=== PATIENT | female | born 1940 | race Caucasian/White ===

== ENCOUNTER → 2016-07-08 | Outpatient (CLI) | payer OTHER, BC ==
[~2016-07-08] MED LIST: ASPI81TA28 PO; CALC500C3 PO; CHOL1000 PO; CLC100 PO; CLR10 PO; COEN100C7 PO; ESTR0.3T PO; LANS15CA15 PO; MAGNTAB17 PO; METO25TA56 PO; MONT1TAB3 PO; MULT-506 PO; OMEG10007 PO; POTA99TA PO; RANI150T3 PO; SIMV20TA2 PO; SIMV40TA2 PO; SLWMEC PO; SYMIN160 INH; TRAM-10 PO; [UNRECOGNIZED DRUG - OTHER] PO
--- NOTE | 2016-07-09 14:06 | MAMMOGRAPHY REPORT ---
BILATERAL DIGITAL SCREENING MAMMOGRAM WITH CAD: 07/08/2016 CLINICAL HISTORY: Routine screening. Patient has no complaints. TECHNIQUE: Bilateral CC and MLO views were obtained. Current study was also evaluated with a Comput er Aided Detection (CAD) system. COMPARISON: Comparison is made to exams dated: 07/03/2015 mammogram, 06/28/2014 mammogram, 04/12/2013 mammogram, 03/16/2012 mammogram, 03/11/2011 mammogram, and 03/05/2010 mammogram - [facility]. BREAST COMPOSITION: The tissue of both breasts is heterogeneously dense, which may obscure small ma sses. FINDINGS: There are multiple bilateral circumscribed masses scattered in the breasts, which appears stable compared to prior mammograms. There are mild vascular calcification and benign rim calcifica tions. No new suspicious mass, architectural distortion or cluster of microcalcifications is seen. IMPRESSION: ACR BI-RADS CATEGORY 1: NEGATIVE There is no mammographic evidence of malignancy. A 1 year screening mammogram is recommended. The p atient will receive written notification of the results. Approximately 10% of breast cancers are not detected with mammography. A negative mammographic repor t should not delay biopsy if a clinically suggestive mass is present. Mariam Avendaño M.D. ay/:07/08/2016 15:30:01 Insulation Manager: Zee SULLIVAN(Aayush)(M), [facility] letter sent: Normal 1/2 BI-RADS Code: ACR BI-RADS Category 1: Negative
== END | disposition home or self-care (01) ==
LOC: C.MAMM 10:27
PROVIDERS: ATTEND Internal Medicine
DX: Z12.31 Encounter for screening mammogram for malignant neoplasm of breast (principal)

== ENCOUNTER → 2016-08-04 | Outpatient (CLI) | payer OTHER, BC ==
--- NOTE | 2016-08-04 13:00 | DIAGNOSTIC IMAGING REPORT ---
CT OF THE CHEST WITHOUT IV CONTRAST CLINICAL HISTORY: J45.991 Cough variant [id number] COMPARISON STUDY: No previous studies for comparison. CT DOSE: 186.18 mGy.cm TECHNIQUE: CT of the thorax was performed from the thoracic inlet to the lung bases. Images are reviewed in the axial, sagittal, and coronal planes. IV contrast was not administered for this examination. FINDINGS: Thyroid: Imaged portions of the thyroid gland are normal in appearance. Thoracic aorta: The thoracic aorta is normal in course and caliber, noting standard 3 vessel arch anatomy. Heart: There are pericardial calcifications present. There is no significant pericardial effusion. Lungs and pleural spaces: No pleural effusions are visualized. There is evidence for interstitial lung disease with subpleural reticulation and traction bronchiectasis. No definite honeycombing is identified. There is scattered more focal groundglass nodular opacities. Mediastinum: Mediastinal lymph nodes are the upper limits of normal in size. Jessica: Hilar lymph nodes are felt to be the upper limits of normal in size. Axilla: There is no evidence of pathologic axillary adenopathy Upper abdomen: Partially visualized upper abdominal viscera is within normal limits. Skeletal structures: There are no lytic or blastic osseous lesions. IMPRESSION: 1. Interstitial lung disease, characterized by subpleural reticulation and traction bronchiectasis. This has a subpleural predominance. This is a possible but not definitive UIP pattern 2. Pericardial calcifications 3. Mediastinal and hilar lymph nodes at the upper limits of normal in size Electronically signed by: Demetrio Coulter M.D. 08/04/2016 12:59 PM Dictated Date/Time: 08/04/2016 12:52 PM
== END | disposition home or self-care (01) ==
LOC: C.CTS 12:37
PROVIDERS: ATTEND Internal Medicine
DX: J45.991 Cough variant asthma (principal); J84.9 Interstitial pulmonary disease, unspecified; I31.8 Other specified diseases of pericardium

== ENCOUNTER → 2016-08-05 | Outpatient (CLI) | payer OTHER, BC ==
[2016-08-05 09:27] LABS: BASO % 0.5 %; BASO ABS # 0.04 K/uL (0-0.2); COMPLETE YES; HEMATOCRIT 41.6 % (37-47); IG% 0.3 %; LYMPH % 22.7 %; LYMPH ABS # 1.72 K/uL (1.2-3.4); MEAN CELL VOLUME 96.7 fL (80-100); MEAN CORPUSCULAR HEMOGLOBIN 31.4 pg (25-34); MEAN CORPUSCULAR HGB CONC 32.5 g/dl (32-36); MEAN PLATELET VOLUME 8.6 fL (7.4-10.4); MONO % 7.9 %; NEUT % 64.6 %; PLATELET COUNT 286 K/uL (130-400); WHITE BLOOD COUNT 7.59 K/uL (4.8-10.8)
[2016-08-05 09:43] LABS: ALT/SGPT 17 U/L (12-78); BLOOD UREA NITROGEN 12 mg/dl (7-18); BUN/CREATININE RATIO 19.8 (10-20); CARBON DIOXIDE 24 mmol/L (21-32); CHLORIDE 105 mmol/L (98-107); CHOLESTEROL 187 mg/dl (0-200); CREATININE 0.59 mg/dl (0.60-1.20); GLUCOSE 83 mg/dl (70-99); POTASSIUM 3.9 mmol/L (3.5-5.1); SODIUM 140 mmol/L (136-145); TRIGLYCERIDES 148 mg/dl (0-150); VERY LOW DENSITY LIPOPROT CALC 30 mg/dl
[2016-08-05 09:47] LABS: CALCIUM 9.6 mg/dl (8.5-10.1)
[2016-08-05 09:53] LABS: ALKALINE PHOSPHATASE 84 U/L (45-117); AST/SGOT 17 U/L (15-37); CHOLESTEROL/HDL RATIO 3.9; HDL CHOLESTEROL 48 mg/dl; LDL CHOLESTEROL CALCULATED 109 mg/dl; RHEUMATOID FACTOR < 10.0 U/mL (0-15); THYROID STIMULATING HORMONE 0.412 uIu/ml (0.300-4.500)
[2016-08-07 15:26] LABS: ANA TITER 1:40 TITER (<1:40)
== END | disposition home or self-care (01) ==
LOC: C.LAB 08:25
PROVIDERS: ATTEND Internal Medicine
DX: E55.9 Vitamin D deficiency, unspecified (principal); J84.9 Interstitial pulmonary disease, unspecified

== ENCOUNTER → 2016-08-15 | Outpatient (CLI) | payer OTHER, BC ==
[2016-08-15 08:09] LABS: BASO % 0.4 %; BASO ABS # 0.03 K/uL (0-0.2); COMPLETE YES; EOS % 4.8 %; HEMATOCRIT 42.1 % (37-47); IG% 0.1 %; LYMPH % 22.5 %; MEAN CORPUSCULAR HEMOGLOBIN 31.5 pg (25-34); MEAN CORPUSCULAR HGB CONC 33.5 g/dl (32-36); MEAN PLATELET VOLUME 8.6 fL (7.4-10.4); MONO % 10.3 %; NEUT % 61.9 %; PLATELET COUNT 295 K/uL (130-400); RED BLOOD COUNT 4.48 M/uL (4.2-5.4); WHITE BLOOD COUNT 6.67 K/uL (4.8-10.8)
[2016-08-15 08:28] LABS: PROTHROMBIN TIME (PATIENT) 10.3 SECONDS (9.0-12.0)
[2016-08-15 08:44] LABS: ALT/SGPT 19 U/L (12-78); BLOOD UREA NITROGEN 11 mg/dl (7-18); BUN/CREATININE RATIO 17.5 (10-20); CALCIUM 9.5 mg/dl (8.5-10.1); CARBON DIOXIDE 28 mmol/L (21-32); CHLORIDE 106 mmol/L (98-107); CREATININE 0.64 mg/dl (0.60-1.20); GLUCOSE 87 mg/dl (70-99); POTASSIUM 4.2 mmol/L (3.5-5.1); SODIUM 139 mmol/L (136-145)
[2016-08-15 08:57] LABS: ALB/GLOB RATIO 0.9 (0.9-2); ALKALINE PHOSPHATASE 92 U/L (45-117); AST/SGOT 15 U/L (15-37); IMMUNOGLOBULN M 97.6 mg/dL (40-230); RHEUMATOID FACTOR < 10.0 U/mL (0-15)
--- NOTE | 2016-08-21 09:02 | CODING QUERY MEDICAL NECESSITY ---
CQSUPPORTING DIAGNOSIS NEEDED A supporting diagnosis is required for the test/procedure performed on this patient in order for us to be reimbursed by the patient's insurance. Please provide a supporting diagnosis for the following test/procedure listed below next to the test name along with your signature. *If there is no additional diagnosis for this patient that would support the following test/procedure please document that below next to the test/procedure. Test(s)/Procedure(s) that require a supporting diagnosis: NICOLE 08/15/16 ALLERGY TESTING Provider Signature: Date: Thank you Janis Drummond [employer] Once completed, please kindly fax back to [phone] For questions please call [phone]
== END | disposition home or self-care (01) ==
LOC: C.LAB 07:23
PROVIDERS: ATTEND Internal Medicine Pulmonary Disease
DX: J84.9 Interstitial pulmonary disease, unspecified (principal); R05 Cough; J45.909 Unspecified asthma, uncomplicated; R00.0 Tachycardia, unspecified; R00.2 Palpitations; K21.9 Gastro-esophageal reflux disease without esophagitis

== ENCOUNTER → 2016-09-04 | Day surgery (SDC) | payer OTHER, BC ==
[2016-09-04] VITALS (12 sets, daily range): BP systolic 106–167; BP diastolic 54–79; PULSE 64–100; TEMP 36.4–36.9; O2SAT 93–100; Ht 154.9 cm; Wt 59.0 kg
[~2016-09-04] VITALS: Ht 154.9 cm; Wt 59.0 kg
[~2016-09-04] MED LIST changes: +FENTANYL CITRATE 100 MCG 2 ML CARP IV ONE; +FENTANYL CITRATE INJ 50 MCG/1 ML 2 ML VIAL IV ONE; +LEVALBUTEROL 1.25MG/3ML NEB INH ONE; +MIDAZOLAM HCL 5 MG/ML 1 ML VIAL IV ONE; +MIDAZOLAM HCL 5 MG/ML 2ML VIAL IV ONE; +NURSING VERBAL MED ORDER ONE
--- NOTE | 2016-09-04 09:53 | Procedure Note ---
Pre-Mod Sedation Assessment General Date of Moderate Sedation: Sep 04, 2016. Vital Signs: Vital Signs Past 12 Hours Date Time Temp Pulse Resp B/P (MAP) Pulse Ox O2 Delivery O2 Flow Rate FiO2 09/04/16 09:07 36.4 70 18 144/64 (90) 97 Room Air Pre-Sedation Airway Assessment Oral Cavity: Capped Teeth Short Thick Neck: No Hx of Sleep Apnea: No Smoking Status: Former Smoker Mallampati Classification: Class I ASA Classification: Class II Procedure Planning Yes Notes The planned sedation has been discussed with the patient and consent obtained. I have identified the patient, determined the appropriateness of sedation and have assessed the patient immediately prior to the procedure. All medicine(s) and interventions are by my order.
--- NOTE | 2016-09-04 09:53 | History & Physical Bridge Note ---
H&P Re-Evaluation Bridge Note: I have examined the patient, reviewed the History & Physical and in the interval since the performance of the History & Physical I have noted the following changes of clinical significance: No changes noted
--- NOTE | 2016-09-04 11:01 | OPERATIVE REPORT ---
DATE OF OPERATION: 09/04/2016 PROCEDURE NOTE DATE OF PROCEDURE: 09/04/2016 at 1000. PROCEDURE: Fiberoptic bronchoscopy with and without transbronchial biopsy. SURGEON: Dr. Acevedo. INDICATIONS: Diffuse interstitial lung disease with persistent cough. ANESTHESIA PREOPERATIVELY: None. ANESTHESIA DURING PROCEDURE: 3 mg IV Versed, 50 mcg IV fentanyl, 20 mL 2% Xylocaine spray above and below the cords, 4% viscous Xylocaine intranasally. PROCEDURE: Fiberoptic bronchoscope was inserted through the left naris with minimal difficulty and passed to the level of the true vocal cords. The cords appeared to approximate normally with phonation without evidence of lesions or paralysis. The scope was then introduced into the trachea and right and left tracheobronchial tree. The trachea was within normal limits, hasmukh was sharp. The right main stem bronchus was explored and no endobronchial lesions were seen. The right upper lobe, the apical posterior and anterior segments, bronchus intermedius, right middle lobe and the medial and lateral segments were free of endobronchial lesions. Thick mucus was lavaged from right lower lobe basilar segments until clear. Mucous pitting was visible throughout the right tracheobronchial tree. Left tracheobronchial tree was explored and no endobronchial lesions were seen. Left upper lobe, the apical-posterior and anterior segments, lingular subdivision with the superior and inferior segments and all basilar segments of left lower lobe were found to be free of endobronchial lesions. Each lobar segment was lavaged with normosol and the aspirate sent for appropriate studies. The mucosa was extremely friable and there was evidence for mild hemorrhage following installation of normal saline and aspiration. The bleeding abated spontaneously and no brushings or biopsies were attempted. The procedure was terminated and patient tolerated the procedure well and was given a nebulizer treatment with Xopenex 1.25 mg and transferred to the medical treatment unit hemodynamically stable with no signs of respiratory compromise. Will await microbiological and cytologic examination of the bronchial washings. I attest to the content of the Intraoperative Record and any orders documented therein. Any exception s are noted below.
[2016-10-01 13:22] LABS: HERPES SIMPLEX CULT SOURCE OTHER-TRACHEOBRONCH; HERPES SIMPLEX VIRUS CULT NOT ISOLATED (NOT ISOLATED)
== END | disposition home or self-care (01) ==
LOC: C.ACU 08:32
PROVIDERS: ATTEND Internal Medicine Pulmonary Disease
DX: J84.9 Interstitial pulmonary disease, unspecified (principal); K21.9 Gastro-esophageal reflux disease without esophagitis; E78.5 Hyperlipidemia, unspecified; E55.9 Vitamin D deficiency, unspecified; J45.991 Cough variant asthma; Z90.710 Acquired absence of both cervix and uterus; Z79.82 Long term (current) use of aspirin; Z82.49 Family history of ischemic heart disease and other diseases of the circulatory system

== ENCOUNTER → 2016-10-22 | Outpatient (CLI) | payer OTHER, BC ==
[~2016-10-22] MED LIST changes: -FENTANYL CITRATE 100 MCG 2 ML CARP IV ONE; -FENTANYL CITRATE INJ 50 MCG/1 ML 2 ML VIAL IV ONE; -LEVALBUTEROL 1.25MG/3ML NEB INH ONE; -MIDAZOLAM HCL 5 MG/ML 1 ML VIAL IV ONE; -MIDAZOLAM HCL 5 MG/ML 2ML VIAL IV ONE; -NURSING VERBAL MED ORDER ONE
[2016-10-22 15:46] LABS: BASO % 0.6 %; BASO ABS # 0.04 K/uL (0-0.2); COMPLETE YES; EOS % 4.2 %; HEMATOCRIT 40.9 % (37-47); IG% 0.3 %; LYMPH % 25.4 %; LYMPH ABS # 1.81 K/uL (1.2-3.4); MEAN CELL VOLUME 94.9 fL (80-100); MEAN CORPUSCULAR HEMOGLOBIN 31.1 pg (25-34); MEAN CORPUSCULAR HGB CONC 32.8 g/dl (32-36); MEAN PLATELET VOLUME 8.6 fL (7.4-10.4); MONO % 9.1 %; NEUT % 60.4 %; PLATELET COUNT 330 K/uL (130-400); RED BLOOD COUNT 4.31 M/uL (4.2-5.4); WHITE BLOOD COUNT 7.14 K/uL (4.8-10.8)
[2016-10-22 16:12] LABS: BLOOD UREA NITROGEN 14 mg/dl (7-18); BUN/CREATININE RATIO 22.4 (10-20); CALCIUM 9.4 mg/dl (8.5-10.1); CARBON DIOXIDE 29 mmol/L (21-32); CHLORIDE 104 mmol/L (98-107); CREATININE 0.63 mg/dl (0.60-1.20); GLUCOSE 86 mg/dl (70-99); SODIUM 139 mmol/L (136-145)
== END | disposition home or self-care (01) ==
LOC: C.LAB 14:21
PROVIDERS: ATTEND Surgery
DX: J84.9 Interstitial pulmonary disease, unspecified (principal); Z01.812 Encounter for preprocedural laboratory examination

== ENCOUNTER 2016-10-28 07:03 | Inpatient (IN) | payer OTHER, BC ==
[2016-10-06 13:14] VITALS: BMI 24.0
[~2016-10-28] VITALS: Ht 154.9 cm; Wt 59.1 kg
[2016-10-28] VITALS (11 sets, daily range): BP systolic 108–143; BP diastolic 62–78; PULSE 61–86; TEMP 36.2–36.9; O2SAT 95–100; Ht 154.9 cm; Wt 59.1 kg
[~2016-10-28 07:03] MED LIST changes: -CLC100 PO; +FENTANYL CITRATE INJ 50 MCG/1 ML 2 ML VIAL ONE; +GLYCOPYRROLATE INJ 0.2 MG/ML VIAL ONE; +LACTATED RINGER'S 1000ML 1,000 ML IV SCH; +LIDOCAINE HCL 2% 2 ML VIAL (20MG/ML) ONE; +MIDAZOLAM HCL 1 MG/ML 2ML VIAL ONE; +NEOSTIGMINE METHYLSULFATE 5 MG/5 ML SYR ONE; +PROPOFOL IV EMULSION 10 MG/ML 20 ML VIAL IV ONE; +ROCURONIUM BROMIDE 10 MG/ML 5 ML VIAL IV ONE; -TRAM-10 PO
[2016-10-28] MEDS ORDERED: SODIUM CHLORIDE 0.9% PF 50 ML VIAL ONE (08:20)
[2016-10-28] MEDS ORDERED: BUPIVACAINE LIPOSOME 1/3% 266 MG/20 ML VIAL INFIL ONE (08:20)
[2016-10-28] MEDS ORDERED: LABETALOL HCL IV 5 MG/ML 20ML IV PRN (09:00)
[2016-10-28] MEDS ORDERED: HYDROmorphone INJ 2 MG/ML SYR/VIAL IV PRN (09:00)
[2016-10-28] MEDS ORDERED: ATROPINE SULFATE 0.1 MG/ML 5ML SYR IV PRN (09:00)
[2016-10-28] MEDS ORDERED: KETOROLAC TROMETHAMINE 30 MG/ML VIAL IV. PRN (09:00)
[2016-10-28] MEDS ORDERED: ONDANSETRON INJ 2 MG/ML 2 ML VIAL IV PRN ×2 (09:00→10:30)
[2016-10-28] MEDS ORDERED: ONDANSETRON INJ 2 MG/ML 2 ML VIAL ONE (09:32)
[2016-10-28] MEDS ORDERED: DEXAMETHASONE SOD INJ 4 MG/ML VIAL ONE (09:32)
[2016-10-28] MEDS ORDERED: FENTANYL CITRATE INJ 50 MCG/1 ML 2 ML VIAL ONE (09:32)
[2016-10-28] MEDS ORDERED: EpHEDrine SULFATE 50MG/5ML SYR ONE (09:42)
[2016-10-28] MEDS ORDERED: ROCURONIUM BROMIDE 10 MG/ML 5 ML VIAL IV ONE ×2 (10:02)
[2016-10-28] MEDS ORDERED: NON-FORMULARY MEDICATION (Potassium 1 TAB) PO SCH (10:30)
[2016-10-28] MEDS ORDERED: MoRPHine SULFATE 2 MG/ML CARP IV PRN (10:30)
[2016-10-28] MEDS ORDERED: OXYCODONE HCL IR 5 MG TAB (IMMEDIATE RELEASE) PO PRN (10:30)
[2016-10-28] MEDS ORDERED: NURSING VERBAL MED ORDER ONE ×2 (11:00→18:15)
--- NOTE | 2016-10-28 11:00 | DIAGNOSTIC IMAGING REPORT ---
CHEST ONE VIEW PORTABLE HISTORY: s/p left lung wedge resection COMPARISON: Chest 10/28/2016. FINDINGS: Small left apical pneumothorax with a pleural gap of 7 mm. Left chest tube terminates in the left lung apex. Old, healed left rib fractures. No right pneumothorax. Diffuse interstitial thickening, unchanged. Right peritracheal soft tissue thickening may be due to patient rotation. The heart is stable in size. Patchy left basilar densities. IMPRESSION: 1. Small left apical pneumothorax. Left chest tube terminates in the left lung apex. 2. Patchy density at the left lung base which may be due to the recent postoperative change. 4. Chronic diffuse interstitial thickening. Electronically signed by: Yomi Nathan M.D. 10/28/2016 10:59 AM Dictated Date/Time: 10/28/2016 10:56 AM
--- NOTE | 2016-10-28 11:58 | OPERATIVE REPORT ---
DATE OF OPERATION: 10/28/2016 PREOPERATIVE DIAGNOSIS: Probable interstitial lung disease. POSTOPERATIVE DIAGNOSIS: Same. PROCEDURE: Robotic assisted left thoracoscopic biopsy of left lower lobe x2. SURGEON: Dr. Camacho. LOSS CLAIM CLERK: Tyrone Muñoz PA-C. ANESTHESIA: General anesthesia endotracheal intubation with a double lumen tube. SPECIFICS OF PROCEDURE: This is a very nice 76-year-old female who I met in the office who has probable interstitial lung disease and has progressed in symptom severity. I had a long talk with the patient and her who is a physician. We elected to proceed with a minimally invasive biopsy. I selected the left side because I felt there were changes more evident in the left lower lung field. On 10/28/2016 the patient underwent an uncomplicated robot-assisted thoracoscopic surgery with biopsy of the left lower lobe, both medially and laterally in the basilar segments. She tolerated it very well, had no air leak at the conclusion of the case. PROCEDURE: The patient brought to the operating room and laid in supine position. General anesthesia induced. Endotracheal intubation was performed with a double lumen tube. The patient was placed in the right lateral decubitus position and the left chest was evaluated and prophylactic antibiotics infused. After appropriate timeout had been called camera port was placed with an 8 mm port at about the mid axillary line in the eighth interspace. I then was able to see there were no adhesions. The lung did look abnormal. An 8 mm port was placed 10 cm more posteriorly in the interspace and then I placed another port about 10 cm anterior but this is in the seventh interspace. This was done under thoracoscopic visualization. We then placed the real estate legal assistant port down about the 10th or 11th interspace between the first 2 anterior ports. I was unable to see very well. I used my Exparel 266 mg reconstituted in 60 mL of normal saline and injected from the 2nd to the 11th rib for a thoracoscopic guided internal intercostal block. We then turned towards the medial lower lobe which appeared to be mostly involved on CT. I was able to wedge a generous segment of this out using the Endo-SUSAN staplers. This was delivered off the field in an Endobag. I then went and did the same thing more laterally and posteriorly and removed another generous segment using Endo-SUSAN staplers in an Endobag. I did cut a piece of the soft to send for appropriate microbiologic studies including fungal, AFB smears and cultures. I then irrigated out the chest. There was really no bleeding. A 24-Italian chest tube was directed through the anterior thoracoscopy port and then held in place with heavy silk suture. This was directed towards the apex under thoracoscopic guidance. The robot had been undocked and removed and we removed all the ports. Each port was closed with 0 Vicryl to close the deeper muscle layers and 4-0 Vicryl was used in running subcuticular fashion to approximate the wound edges. She tolerated it well and was transported back to the post-anesthesia care unit in stable condition. I attest to the content of the Intraoperative Record and any orders documented therein. Any exception s are noted below.
[2016-10-28] MEDS ORDERED: ALBUTEROL 0.083% NEBU SOLN 3 ML VIAL INH ONE (12:15)
--- NOTE | 2016-10-28 12:15 | Anesthesiology Progress Note ---
Anesthesia Post Op Note Date & Time Oct 28, 2016 at 12:14 Vital Signs Pain Intensity: 2 Vital Signs Past 12 Hours Date Time Temp Pulse Resp B/P (MAP) Pulse Ox O2 Delivery O2 Flow Rate FiO2 10/28/16 11:13 36.4 10/28/16 11:11 140/64 10/28/16 11:10 66 12 100 10/28/16 11:10 65 12 10/28/16 11:06 145/67 10/28/16 11:05 62 17 99 10/28/16 11:05 61 17 10/28/16 11:01 135/70 10/28/16 11:00 64 22 100 10/28/16 11:00 65 22 10/28/16 10:56 140/73 10/28/16 10:55 70 15 100 10/28/16 10:55 69 15 10/28/16 10:51 139/70 10/28/16 10:50 66 19 100 10/28/16 10:50 66 19 10/28/16 10:50 Nasal Cannula 3 10/28/16 10:46 143/65 10/28/16 10:45 77 20 100 10/28/16 10:45 79 20 10/28/16 10:41 146/80 10/28/16 10:35 36.2 78 14 144/64 100 Oxymask 8 10/28/16 07:34 36.2 74 20 129/62 (84) 96 Room Air Notes Mental Status: alert / awake / arousable, participated in evaluation Pt Amnestic to Procedure: Yes Nausea / Vomiting: adequately controlled Pain: adequately controlled Airway Patency, RR, SpO2: stable & adequate BP & HR: stable & adequate Hydration State: stable & adequate Anesthetic Complications: no major complications apparent
[2016-10-28] MEDS: CHOLECALCIFEROL 1000 INTER.UNIT TAB PO SCH (13:01)
[2016-10-28] MEDS: D5W AND 1/2NSS 1,000 ML IV SCH ×2 (13:05→22:06)
[2016-10-28] MEDS ORDERED: PANTOprazole SOD 40 MG TAB PO SCH (13:30)
[2016-10-28 13:33] LABS: HEMATOCRIT 40.3 % (37-47); MEAN CELL VOLUME 95.3 fL (80-100); MEAN CORPUSCULAR HEMOGLOBIN 31.4 pg (25-34); MEAN PLATELET VOLUME 8.7 fL (7.4-10.4); PLATELET COUNT 242 K/uL (130-400); RED BLOOD COUNT 4.23 M/uL (4.2-5.4); WHITE BLOOD COUNT 13.39 K/uL (4.8-10.8)
[2016-10-28 13:42] LABS: PROTHROMBIN TIME (PATIENT) 10.3 SECONDS (9.0-12.0)
[2016-10-28 13:57] LABS: CREATININE 0.65 mg/dl (0.60-1.20)
[2016-10-28] MEDS: ASPIRIN 81 MG ECTAB PO SCH (14:18)
[2016-10-28] MEDS: CALCIUM CARBONATE 500 MG CHEWABLE PO SCH (14:19)
[2016-10-28] MEDS: ACETAMINOPHEN IV 1,000 MG in EMPTY BAG 0 ML IV SCH ×2 (14:22→22:06)
[2016-10-28] MEDS: CEFAZOLIN IV 2,000 MG in DEXTROSE 5% 50ML 100 ML IV SCH (16:44)
[2016-10-28] MEDS ORDERED: [UNRECOGNIZED DRUG - OTHER] PO SCH (17:45)
[2016-10-28] MEDS ORDERED: MULTIVITAMIN TAB PO SCH (17:45)
[2016-10-28] MEDS ORDERED: NON-FORMULARY MEDICATION (Coenzyme Q10 (Ubidecarenone) (Coq10) 200 MG) PO SCH (17:45)
[2016-10-28] MEDS ORDERED: OMEGA-3 (PURIFIED FISH OIL) 1 GM CAP PO SCH (17:45)
[2016-10-28] MEDS ORDERED: COUGH DROP (SUGAR FREE) LOZ 24 LOZ/1 BOX ONE (18:04)
[2016-10-28] MEDS ORDERED: COUGH DROP (SUGAR FREE) LOZ 24 LOZ/1 BOX PO PRN (18:15)
[2016-10-28] MEDS: METOPROLOL TARTRATE 25 MG TAB PO SCH (20:22)
[2016-10-28] MEDS: KETOROLAC TROMETHAMINE 15 MG/ML VIAL IV. SCH (20:22)
[2016-10-28] MEDS: DOCUSATE SODIUM 100 MG CAP PO SCH (20:22)
[2016-10-28] MEDS: BUDESONIDE/FORMOTEROL FUMARATE 160/4.5 60 PUFFS/INHALER INH SCH (20:23)
[2016-10-28] MEDS ORDERED: MONTELUKAST SOD 10 MG TAB PO SCH (21:00)
[2016-10-28] MEDS ORDERED: ESTROGENS, CONJUGATED 0.3 MG TAB PO SCH (21:00)
[2016-10-28] MEDS: METOCLOPRAMIDE HCL INJ 5 MG/ML 2 ML VIAL IV. SCH (22:06)
[2016-10-29] VITALS: BP 112/62; PULSE 60; TEMP 36.8; O2SAT 94
[2016-10-29] MEDS: CEFAZOLIN IV 2,000 MG in DEXTROSE 5% 50ML 100 ML IV SCH (00:17)
[2016-10-29 04:00] VITALS: BP 110/68; PULSE 69; TEMP 36.9; O2SAT 95
[2016-10-29] MEDS: KETOROLAC TROMETHAMINE 15 MG/ML VIAL IV. SCH (04:06)
[2016-10-29] MEDS: ACETAMINOPHEN IV 1,000 MG in EMPTY BAG 0 ML IV SCH (06:12)
[2016-10-29] MEDS: METOCLOPRAMIDE HCL INJ 5 MG/ML 2 ML VIAL IV. SCH (06:12)
[2016-10-29 06:30] VITALS: O2SAT 90
--- NOTE | 2016-10-29 07:59 | DIAGNOSTIC IMAGING REPORT ---
CHEST ONE VIEW PORTABLE CLINICAL HISTORY: s/p left lung wedge resection COMPARISON STUDY: Chest radiograph October 28, 2016. FINDINGS: A left chest tube remains in place. Chest tube has been slightly withdrawn. A trace left apical pneumothorax is unchanged. Interstitial thickening within the lungs persists. Cardiomegaly is unchanged. IMPRESSION: No change in a trace left apical pneumothorax with left chest tube in place. Electronically signed by: Harjinder Chen M.D. 10/29/2016 7:58 AM Dictated Date/Time: 10/29/2016 7:57 AM
[2016-10-29] MEDS ORDERED: TRAM-10 PO (08:02)
[2016-10-29] MEDS ORDERED: CLC100 PO (08:02)
--- NOTE | 2016-10-29 08:04 | Discharge Instructions ---
Discharge Instructions Date of Service Oct 29, 2016. Admission Reason for Admission: Interstitial Lung Disease J84.9 Discharge Discharge Diagnosis / Problem: nterstitial Lung Disease Discharge Goals Goal(s): Learn about illness Activity Recommendations Activity Limitations: as noted below Lifting Limitations: none 1. Do not drive if taking ultram 2. You may remove dressings in 3 days and then shower. No tub baths 3. Do not fly until cleared to do so by Dr. Camacho . Instructions / Follow-Up Instructions / Follow-Up 1. Office appointment with Dr. Camacho in 1 week. Office will call you with date and time of appointment. Go to hospital 1 hour before appointment to have a chest x-ray taken. Current Hospital Diet Patient's current hospital diet: Regular Diet Discharge Diet Recommended Diet: Regular Diet Procedures Procedures Performed: Left Thoracoscopy with Lung Biopsy Robot Assist Pending Studies Studies pending at discharge: no Laboratory Results Lipid Panel Test 08/05/16 08:28 Range/Units Triglycerides Level 148 0-150 mg/dl Cholesterol Level 187 0-200 mg/dl HDL Cholesterol 48 mg/dl Cholesterol/HDL Ratio 3.9 LDL Cholesterol, Calculated 109 mg/dl Medical Emergencies . Who to Call and When: Medical Emergencies: If at any time you feel your situation is an emergency, please call 911 immediately. . Non-Emergent Contact Non-Emergency issues call your: Surgeon Call Non-Emergent contact if: you have a fever, your pain is not controlled, wound has increased drainage . "Provider Documentation" section prepared by Tyrone Muñoz. . VTE Core Measure Inpt VTE Proph given/why not?: Enoxaparin (Lovenox)SQ
[2016-10-29 08:06] VITALS: BP 119/65; PULSE 61; TEMP 36.8; O2SAT 95
--- NOTE | 2016-10-29 08:19 | DIAGNOSTIC IMAGING REPORT ---
CHEST ONE VIEW PORTABLE HISTORY: chest tube removal COMPARISON: Chest 10/29/2016. FINDINGS: The left-sided chest tube has been removed. Tiny left apical pneumothorax has slightly increased in size. This demonstrates a maximal pleural gap of 5 mm. The heart remains mildly enlarged. Trace left pleural effusion persist. Mild chronic interstitial thickening is again noted. Old, healed left-sided rib fractures. IMPRESSION: Interval removal of the left-sided chest tube. Tiny left apical pneumothorax has slightly increased in size. Electronically signed by: Yomi Nathan M.D. 10/29/2016 8:18 AM Dictated Date/Time: 10/29/2016 8:17 AM
--- NOTE | 2016-10-29 08:26 | DISCHARGE SUMMARY ---
DISCHARGE DIAGNOSIS: Probable interstitial lung disease. 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 I have discussed this in detail with the patient and her who is a retired physician. On 10/28/2016 the patient was brought to the operating room and underwent an uncomplicated left robot-assisted thoracoscopic wedge resection of the left lower lobe x2. We had no blood loss. I did a block with Exparel intrathoracically from her second to eleventh intercostal nerves, and she did very well. She really had very little in the way of pain. She had no air leak. She drained very little from her chest tube. The following morning, I removed her chest tube and she was discharged. I will see her back next week to go for pathology.
[2016-10-29] MEDS ORDERED: SIMVASTATIN 20 MG TAB PO SCH (09:00)
[2016-10-29] MEDS: CHOLECALCIFEROL 1000 INTER.UNIT TAB PO SCH (09:00)
[2016-10-29] MEDS ORDERED: SIMVASTATIN 40 MG TAB PO SCH (09:00)
[2016-10-29] MEDS ORDERED: MAGNESIUM CHLORIDE 64MG DELAYED REL TAB PO SCH ×2 (09:00)
[2016-10-29] MEDS ORDERED: ENOXAPARIN 40 MG/0.4 ML SYR SQ SCH (09:00)
[2016-10-29] MEDS ORDERED: RANITIDINE HCL 150 MG TAB PO SCH (09:00)
[2016-10-29] MEDS ORDERED: LORATADINE 10 MG TAB PO SCH (09:00)
[2016-10-29] MEDS: BUDESONIDE/FORMOTEROL FUMARATE 160/4.5 60 PUFFS/INHALER INH SCH (09:22)
[2016-10-29] MEDS: METOPROLOL TARTRATE 25 MG TAB PO SCH (09:26)
[2016-10-29] MEDS: ASPIRIN 81 MG ECTAB PO SCH (09:28)
[2016-10-29] MEDS: DOCUSATE SODIUM 100 MG CAP PO SCH (09:28)
[2016-10-29] MEDS: CALCIUM CARBONATE 500 MG CHEWABLE PO SCH (09:30)
[2016-10-29 09:32] VITALS: BP 119/65; PULSE 61; TEMP 36.8; O2SAT 95
== END 2016-10-29 10:45 | disposition home or self-care (01) | DRG 167 ==
LOC: C.ACU 07:03 → C.MSW 07:55 → ENRESERV 11:01
PROVIDERS: ADMIT Surgery; ATTEND Surgery
PROC: 8E0W4CZ Robotic Assisted Procedure of Trunk Region, Percutaneous Endoscopic Approach (ICD-10-PCS; principal; 2016-10-28 08:45)
PROC: 0W9B40Z Drainage of Left Pleural Cavity with Drainage Device, Percutaneous Endoscopic Approach (ICD-10-PCS; principal; 2016-10-28 08:45)
PROC: 0BBJ4ZX Excision of Left Lower Lung Lobe, Percutaneous Endoscopic Approach, Diagnostic (ICD-10-PCS; principal; 2016-10-28 08:45)
DX: J84.10 Pulmonary fibrosis, unspecified (principal); I47.1 Supraventricular tachycardia; K21.9 Gastro-esophageal reflux disease without esophagitis; J45.991 Cough variant asthma; E78.5 Hyperlipidemia, unspecified; M19.90 Unspecified osteoarthritis, unspecified site; E55.9 Vitamin D deficiency, unspecified; Z87.891 Personal history of nicotine dependence; Z79.51 Long term (current) use of inhaled steroids; Z79.82 Long term (current) use of aspirin; Z79.890 Hormone replacement therapy; Z79.899 Other long term (current) drug therapy

== ENCOUNTER → 2016-11-12 | Outpatient (CLI) | payer OTHER, BC ==
[~2016-11-12] MED LIST changes: +CLC100 PO; -FENTANYL CITRATE INJ 50 MCG/1 ML 2 ML VIAL ONE; -GLYCOPYRROLATE INJ 0.2 MG/ML VIAL ONE; -LACTATED RINGER'S 1000ML 1,000 ML IV SCH; -LIDOCAINE HCL 2% 2 ML VIAL (20MG/ML) ONE; -MIDAZOLAM HCL 1 MG/ML 2ML VIAL ONE; -NEOSTIGMINE METHYLSULFATE 5 MG/5 ML SYR ONE; -PROPOFOL IV EMULSION 10 MG/ML 20 ML VIAL IV ONE; -ROCURONIUM BROMIDE 10 MG/ML 5 ML VIAL IV ONE; +TRAM-10 PO
--- NOTE | 2016-11-12 10:18 | DIAGNOSTIC IMAGING REPORT ---
CHEST 2 VIEWS ROUTINE CLINICAL HISTORY: 76 years-old Female presenting with J84.9 Interstitial lung [id number]. TECHNIQUE: PA and lateral views of the chest were obtained. COMPARISON: 10/29/2016. FINDINGS: Mildly prominent cardiac silhouette. Interval resolution of the trace left apical pneumothorax. Mildly prominent interstitial lung markings in the mid and lower lungs. No new focal infiltrate. No pleural effusion. Osseous structures normal. Upper abdomen normal. IMPRESSION: 1. Resolution of the trace left apical pneumothorax. 2. Prominent lung markings consistent with known interstitial lung disease. Electronically signed by: Vasu Garrett M.D. 11/12/2016 10:17 AM Dictated Date/Time: 11/12/2016 10:15 AM
== END | disposition home or self-care (01) ==
LOC: C.RAD1850 09:57
PROVIDERS: ATTEND Surgery
DX: J84.9 Interstitial pulmonary disease, unspecified (principal)

== ENCOUNTER 2022-08-25 13:45 | Inpatient (IN) ==
[2022-08-25 15:37] LABS: Basophils # (auto) 0.07 K/uL (0-0.2); Basophils % (auto) 0.6 %; Eosinophils # (auto) 1.16 K/uL (0-0.50); Eosinophils % (auto) 10.2 %; Hematocrit (blood only) 41.7 % (37.0-47.0); Hemoglobin 13.7 g/dl (12.0-16.0); Immature Granulocytes # (auto) 0.06 K/uL (0.01-0.20); Immature Granulocytes % (auto) 0.5 %; Lymphocytes # (auto) 1.59 K/uL (1.2-3.4); Mean Corpuscular Hemoglobin 30.6 pg (25.0-34.0); Mean Corpuscular Hgb Conc 32.9 g/dL (32.0-36.0); Mean Corpuscular Volume 93.1 fL (80.0-100.0); Mean Platelet Volume 8.2 fL (9.4-12.4); Monocytes # (auto) 0.58 K/uL (0.11-0.59); Monocytes % (auto) 5.1 %; Neutrophils # (auto) 7.91 K/uL (1.40-6.50); Neutrophils % (auto) 69.6 %; Platelet Count 458 K/uL (130-400); RDW Coefficient of Variation 15.3 % (11.5-14.5); RDW Standard Deviation 52.3 fL (36.4-46.3); Red Blood Count 4.48 M/uL (4.20-5.40); White Blood Count 11.37 K/ul (4.8-10.8)
[2022-08-25] MEDS ORDERED: PIPERACILLIN/TAZOBACTAM 4.5 GM in DEXTROSE 5% 100 ML IV ONE (15:51)
[2022-08-25 15:53] LABS: Albumin Globulin Ratio 1.1 (0.9-2); Albumin Level 3.9 gm/dl (3.4-5.0); BUN Creatinine Ratio 32.1 (10-20); Bilirubin,Total 0.5 mg/dl (0.2-1.0); Calcium 9.7 mg/dl (8.6-10.3); Creatinine Clr Calc Pharmacy 71.8 ml/min; Est GFR (African American) 103.9 ml/min; Est GFR (Non-African American) 89.7 ml/min; Globulin 3.6 gm/dl (2.5-4.0); Total Protein 7.5 gm/dl (6.0-8.3)
[2022-08-25] MEDS ORDERED: DAPTOmycin 275 MG in SYRINGE 0 ML IV SCH (16:00)
[2022-08-25 16:13] LABS: C Reactive Protein 7.8 mg/dl (0-0.5)
--- NOTE | 2022-08-25 16:37 | Emergency Department Note ---
Impression & Plan Cellulitis of right lower leg, Cryoglobulinemia, Abnormal SPEP, Wound infection ED Provider Note NAME: CHAIM HENRY AGE: 82 SEX: F ARRIVES VIA: Walk-In INFORMANT: Patient ED PROVIDER(S): Fox Sosa MD CHIEF COMPLAINT: Skin infection PLAN: Disposition: Admit MEDICAL DECISION MAKING: The patient is a pleasant 82-year-old woman with a past medical history of interstitial lung disease on prn home oxygen, history of arthralgias with question of PMR, recent evaluation by rheumatology for skin lesions which were suspicious for vasculitis with recent outpatient lab work performed that demonstrated elevated cryoglobulins and abnormal SPEP as well as recent concern for possible superimposed cellulitis started on Keflex who presents to the emergency department for worsening redness, pain and swelling of the right lower extremity associated with one of her chronic lesions/wounds after she had presented for scheduled arterial ultrasound and raise concern to the technicians who referred her to the emergency department for evaluation. Patient denies any fevers, cough, congestion, GI or symptoms. The arterial ultrasounds of bilateral extremities did not demonstrate acute arterial occlusion. I did discuss the patient's recent history and presentation with Dr. Gooden, the patient's licensing analyst. Appreciate discussion. Future outpatient management anticipated to include hematology referral and possible bone marrow biopsy for further diagnosis given cryoglobulinemia and abnormal SPEP. On arrival the patient is in no acute distress, afebrile with stable vital signs. She appears clinically dry. Her right lower extremity demonstrates mild edema with erythema warmth and tenderness of the right lower leg extending to the foot with several lesions with overlying eschar with the larger lesion of the lateral calf demonstrating sloughing of the periphery of the eschar with underlying scant purulence which was cultured. WBC 11.3k, nonspecific with neutrophil predominance though no left shift and in the setting of being on chronic low-dose steroids. H/H within normal limits. Platelets 458 K, nonspecific and similar to prior. ESR and CRP are elevated at 62 and 7.8, respectively with ESR improved from last month with a level of 86. Chemistry without metabolic acidosis. BUNs/creatinine> 20 consistent with patient's clinically dry appearance. LFTs are unremarkable. Procalcitonin is not elevated. Lactic acid 1.6, within normal limits. Given the patient's worsening cellulitis with concern for wound infection patient was treated with broad-spectrum antibiotics with IV Zosyn and daptomycin. Both the patient and her daughter agree with plan for admission for further management. Case was discussed with MUNIR Nielsen PAC, with MUNIR Seymour hospitalist who will evaluate the patient for admission. Triage Nursing notes reviewed and agree them. Prior/outside medical records reviewed Vital Signs: reviewed Differential diagnosis: Cellulitis, abscess, MRSA infection, DVT, necrotizing fasciitis, dermatitis, drug eruption, allergic reaction, as well as other pathologies. ER treatment provided: See below. Diagnostics interpreted by me: Cardiac Monitoring: An order for continuous cardiac monitoring was placed and demonstrated normal sinus rhythm, 69 bpm, no ectopy. Laboratory studies: See below Imaging studies: See below Consultation(s): Case was discussed with MUNIR Nielsen PAC, with MUNIR Seymour hospitalist who will evaluate the patient for admission. HPI: The patient is a pleasant 82-year-old woman with a past medical history of interstitial lung disease on prn home oxygen, history of arthralgias with question of PMR, recent evaluation by rheumatology for skin lesions which were suspicious for vasculitis with recent outpatient lab work performed that demonstrated elevated cryoglobulins and abnormal SPEP as well as recent concern for possible superimposed cellulitis started on Keflex who presents to the emergency department for worsening redness, pain and swelling of the right lower extremity associated with one of her chronic lesions/wounds after she had presented for scheduled arterial ultrasound and raise concern to the technicians who referred her to the emergency department for evaluation. Patient denies any fevers, cough, congestion, GI or symptoms. The arterial ultrasounds of bilateral extremities did not demonstrate acute arterial occlusion. I did discuss the patient's recent history and presentation with Dr. Gooden, the patient's licensing analyst. Appreciate discussion. Future outpatient management anticipated to include hematology referral and possible bone marrow biopsy for further diagnosis given cryoglobulinemia and abnormal SPEP. ROS: See above HPI for pertinent positives & negatives. A total of 10 systems reviewed and were otherwise negative. VITALS:See Below PHYSICAL EXAMINATION: GENERAL: Awake, alert, well-appearing, in no distress HENT: Normocephalic, atraumatic. Oropharynx dry mucous membranes. EYES: Normal conjunctiva. Sclera non-icteric. NECK: Supple. No nuchal rigidity. FROM. No JVD. RESPIRATORY: Clear to auscultation. CARDIAC: Regular rate, normal rhythm. Extremities warm and well perfused. Pulses equal. ABDOMEN: Soft, non-distended. No tenderness to palpation. No rebound or guarding. No masses. RECTAL: Deferred. MUSCULOSKELETAL: Chest examination reveals no tenderness. The back is sy mmetrical on inspection without obvious abnormality. There is no CVA tenderness to palpation. No joint edema. LOWER EXTREMITIES: Right lower extremity demonstrates mild edema with erythema warmth and tenderness of the right lower leg extending to the foot with several lesions with overlying eschar with the larger lesion of the lateral calf demonstrating sloughing of the periphery of the eschar with underlying scant purulence which was cultured. Left lower extremity without edema but with several similar well demarcated skin lesions with overlying eschar. No evidence of superimposed infection of the left lower leg. Lower extremities are warm and perfused with capillary refill ~ 2 seconds. NEURO: Normal sensorium. No sensory or motor deficits noted. SKIN: No jaundice noted. Fox Sosa MD Past Med/Surg History Medical History Cough variant asthma Dyslipidemia Gastroesophageal reflux disease PSVT (paroxysmal supraventricular tachycardia) Vitamin D deficiency Surgical History H/O: hysterectomy History of lung biopsy Hx of biopsy (08/12/22) Skin, left lower extremity, punch biopsy: In office Dr. River - Ischemic necrosis. - See comment. Family History Father Hypertension Dyslipidemia Cancer Hearing loss Heart disease Mother Dementia Heart disease Daughter Allergies Aunt Stroke Uncle Stroke Denies family history of Ovarian cancer Prostate cancer No family history of adverse response to anesthesia No family history of bleeding disorder Breast cancer Lung cancer Colorectal cancer Asthma Social History Smoking Status: Former smoker Tobacco Type: Cigarettes Age Started Using Tobacco: 21; Age Quit Using Tobacco: 32; packs per day: 0.5; Second Hand Exposure: No; Do You Dip or Chew Tobacco: No; Hx Alcohol Use: Yes Alcohol type: wine Alcohol Intake Frequency: 4 or More x per/Week Alcohol Intake Frequency Comment: glass of wine every night per new patient form. Hx Substance Use: No Preferred Language: Albanian Communication Ability: Effective Visual Impairment: Limited Hearing Ability: Normal Managing Supervisor Required: No marital status: Current Living Situation: Alone current occupational status: retired Feels Safe at Home: Yes Childhood Exposure to Second-Hand Smoke: Yes Diet: low salt caffeine: Yes (periodically) Dental Care, Regularly: Yes Physical Activity Frequency: Does not Exercise Seatbelt Use: always Sunscreen Use: Yes Do you think of yourself as: straight/heterosexual Assistive Devices: Oxygen - at Night Allergies Allergies Allergy/AdvReac Type Severity Reaction Status Date / Time No Known Drug Allergies Allergy Verified 08/20/22 10:57 Home Meds Home Medications Medication Instructions Recorded Confirmed calcium carbonate 600 mg calcium 600 mg PO DAILY 08/29/18 08/25/22 (1,500 mg) tablet cholecalciferol (vitamin D3) 125 5,000 units PO DAILY 08/29/18 08/25/22 mcg (5,000 unit) tablet lansoprazole 15 mg capsule,delayed 15 mg PO DAILY 08/29/18 08/25/22 release multivitamin 1 tab PO DAILY 08/29/18 08/25/22 magnesium chloride 64 mg 64 mg PO DAILY 09/09/18 08/25/22 (magnesium chloride) tablet,delayed release omega-3 fatty acids 1,000 mg 1,000 mg PO DAILY 09/16/18 08/25/22 capsule (Fish Oil Concentrate) fexofenadine 60 mg tablet (Kendra 60 mg PO DAILY PRN Allergy Symptoms 10/06/18 08/25/22 Allergy) potassium 99 mg tablet 10 mg PO .COMPLEX 01/24/19 08/25/22 promethazine 6.25 mg-codeine 10 0 ml PO Q6H PRN Other #1 mL 01/24/19 08/25/22 mg/5 mL syrup cannabidiol 100 mg/mL oral solution PO HS 08/29/19 08/20/22 torsemide 10 mg tablet 10 mg PO DAILY PRN Fluid Retention 07/16/22 08/25/22 aspirin 325 mg tablet 325 mg PO DAILY 08/25/22 08/25/22 Previous Rx's Medication Instructions Recorded benzonatate 200 mg capsule 200 mg PO TID PRN cough #270 caps 04/16/21 rosuvastatin 10 mg tablet (Crestor) 10 mg PO DAILY #90 tabs 07/21/22 albuterol sulfate 90 mcg/actuation 2 puff inhalation Q4H PRN 04/10/22 aerosol inhaler shortness of breath or wheezing #18 grams conjugated estrogens 0.3 mg tablet 0.3 mg PO DAILY #160 tabs 06/23/22 metoprolol succinate 25 mg 25 mg PO DAILY #90 tabs 07/07/22 tablet,extended release 24 hr Oxygen Home #1 ea 08/05/22 escitalopram oxalate 10 mg tablet 10 mg PO .COMPLEX #30 tabs 08/05/22 prednisone 10 mg tablet 10 mg PO DAILY #30 tabs 08/06/22 cephalexin 500 mg capsule 500 mg PO QID #40 caps 08/19/22 Results & Data (ED) Vital Signs Vital Signs - 24 hr 08/25/22 13:57 08/25/22 13:57 08/25/22 15:26 Temperature 36.8 C 36.8 C Temperature Source Oral Oral Pulse Rate 94 H Pulse Rate [Finger] 94 H Respiratory Rate 18 18 Respiratory Depth Blood Pressure 141/76 H Blood Pressure [Right Arm] 141/76 H Blood Pressure Mean 97 Blood Pressure Mean [Right Arm] 97 Pulse Oximetry 99 99 88 L Oxygen Delivery Method Room Air Room Air Room Air Oxygen Flow Rate Sepsis Recent Fever Within 48 Hours No Sepsis New/Unexplained Change in Mental Status No Sepsis Action Taken by Nursing No Action Required Oxygen Flow Rate - Titration Pulse Oximetry Post Tiitration 08/25/22 15:29 08/25/22 16:21 08/25/22 18:00 Temperature Temperature Source Pulse Rate Pulse Rate [Finger] 87 69 Respiratory Rate 17 18 Respiratory Depth Normal Blood Pressure Blood Pressure [Right Arm] 128/66 112/72 Blood Pressure Mean Blood Pressure Mean [Right Arm] 86 85 Pulse Oximetry 88 L 97 98 Oxygen Delivery Method Room Air Nasal Cannula Nasal Cannula Oxygen Flow Rate 2 2 Sepsis Recent Fever Within 48 Hours Sepsis New/Unexplained Change in Mental Status Sepsis Action Taken by Nursing Oxygen Flow Rate - Titration 2 Pulse Oximetry Post Tiitration 93 Laboratory Data Attestation: I reviewed the patient's lab results. 08/25/22 14:34 08/25/22 14:34 Lab Results 08/25/22 08/25/22 08/25/22 Range/Units 14:34 14:34 14:34 WBC 11.37 H (4.8-10.8) K/ul RBC 4.48 (4.20-5.40) M/uL Hgb 13.7 (12.0-16.0) g/dl Hct 41.7 (37.0-47.0) % MCV 93.1 (80.0-100.0) fL MCH 30.6 (25.0-34.0) pg MCHC 32.9 (32.0-36.0) g/dL RDW Std Deviation 52.3 H (36.4-46.3) fL RDW Coeff of Viktor 15.3 H (11.5-14.5) % Plt Count 458 H (130-400) K/uL MPV 8.2 L (9.4-12.4) fL Immature Gran % (Auto) 0.5 % Neut % (Auto) 69.6 % Lymph % (Auto) 14.0 % Harmon % (Auto) 5.1 % Eos % (Auto) 10.2 % Baso % (Auto) 0.6 % Neut # (Auto) 7.91 H (1.40-6.50) K/uL Lymph # (Auto) 1.59 (1.2-3.4) K/uL Harmon # (Auto) 0.58 (0.11-0.59) K/uL Eos # (Auto) 1.16 H (0-0.50) K/uL Baso # (Auto) 0.07 (0-0.2) K/uL Immature Gran # (Auto) 0.06 (0.01-0.20) K/uL ESR 62 H (0-30) mm/hr Sodium 136 (136-145) mmol/L Potassium 4.0 (3.5-5.1) mmol/L Chloride 99 (98-107) mmol/L Carbon Dioxide 27 (21-32) mmol/L Anion Gap 10 (3-11) BUN 17 (6-23) mg/dl Creatinine 0.53 L (0.6-1.2) mg/dl Est Cr Clr Drug Dosing 71.8 ml/min Est GFR ( Amer) 103.9 ml/min Est GFR (Non-Af Amer) 89.7 ml/min BUN/Creatinine Ratio 32.1 H (10-20) Glucose 83 (70-99(Fasting)) mg/dl Lactate (0.4-2.0) mmol/L Calcium 9.7 (8.6-10.3) mg/dl Total Bilirubin 0.5 (0.2-1.0) mg/dl AST 13 (13-39) U/L ALT 7 (7-52) U/L Alkaline Phosphatase 89 (34-104) U/L C-Reactive Protein 7.80 H (0-0.5) mg/dl Total Protein 7.5 (6.0-8.3) gm/dl Albumin 3.9 (3.4-5.0) gm/dl Globulin 3.6 (2.5-4.0) gm/dl Albumin/Globulin Ratio 1.1 (0.9-2) Procalcitonin (0-0.5) ng/ml 08/25/22 08/25/22 Range/Units 14:34 16:05 WBC (4.8-10.8) K/ul RBC (4.20-5.40) M/uL Hgb (12.0-16.0) g/dl Hct (37.0-47.0) % MCV (80.0-100.0) fL MCH (25.0-34.0) pg MCHC (32.0-36.0) g/dL RDW Std Deviation (36.4-46.3) fL RDW Coeff of Viktor (11.5-14.5) % Plt Count (130-400) K/uL MPV (9.4-12.4) fL Immature Gran % (Auto) % Neut % (Auto) % Lymph % (Auto) % Harmon % (Auto) % Eos % (Auto) % Baso % (Auto) % Neut # (Auto) (1.40-6.50) K/uL Lymph # (Auto) (1.2-3.4) K/uL Harmon # (Auto) (0.11-0.59) K/uL Eos # (Auto) (0-0.50) K/uL Baso # (Auto) (0-0.2) K/uL Immature Gran # (Auto) (0.01-0.20) K/uL ESR (0-30) mm/hr Sodium (136-145) mmol/L Potassium (3.5-5.1) mmol/L Chloride (98-107) mmol/L Carbon Dioxide (21-32) mmol/L Anion Gap (3-11) BUN (6-23) mg/dl Creatinine (0.6-1.2) mg/dl Est Cr Clr Drug Dosing ml/min Est GFR ( Amer) ml/min Est GFR (Non-Af Amer) ml/min BUN/Creatinine Ratio (10-20) Glucose (70-99(Fasting)) mg/dl Lactate 1.6 (0.4-2.0) mmol/L Calcium (8.6-10.3) mg/dl Total Bilirubin (0.2-1.0) mg/dl AST (13-39) U/L ALT (7-52) U/L Alkaline Phosphatase (34-104) U/L C-Reactive Protein (0-0.5) mg/dl Total Protein (6.0-8.3) gm/dl Albumin (3.4-5.0) gm/dl Globulin (2.5-4.0) gm/dl Albumin/Globulin Ratio (0.9-2) Procalcitonin 0.06 (0-0.5) ng/ml Administered Medications Daptomycin 275 mg/ Syringe 5.5 mls @ 2.75 mls/min IV Q24H RAYNA; Protocol Stop: 08/27/22 15:59 Last Admin: 08/25/22 17:48 Dose: 2.75 mls/min Documented By: GUILLE Discontinued Medications Piperacillin Sod/Tazobactam (Sod 4.5 gm/ Dextrose) 120 mls @ 200 mls/hr IV NOW ONE; Protocol Stop: 08/25/22 16:26 Last Infusion: 08/25/22 17:36 Dose: 0 mls/hr Documented By: Admin: 08/25/22 16:31 Dose: 200 mls/hr Documented By: MARY KAY Discharge Plan Visit Data Chief Complaint: Infection, Wound ED Provider: Fox Sosa Discharge Problem: Cellulitis of right lower leg, Cryoglobulinemia, Abnormal SPEP, Wound infection Forms Stand Alone Forms: My [facility] [employer] Prescriptions Prescriptions: No Action benzonatate 200 mg capsule 200 mg PO TID PRN (Reason: cough) Qty: 270 3RF rosuvastatin [Crestor] 10 mg tablet 10 mg PO DAILY Qty: 90 3RF albuterol sulfate 90 mcg/actuation HFA aerosol inhaler 2 puff INH Q4H PRN (Reason: shortness of breath or wheezing) Qty: 18 5RF conjugated estrogens 0.3 mg tablet 0.3 mg PO DAILY Qty: 160 0RF Rx Instructions: Take 1 tablet HS days 1 to of every month metoprolol succinate 25 mg tablet extended release 24 hr 25 mg PO DAILY Qty: 90 3RF fexofenadine [Kendra Allergy] 60 mg tablet 60 mg PO DAILY PRN (Reason: Allergy Symptoms) magnesium chloride 64 mg tablet,delayed release (DR/EC) 64 mg PO DAILY omega-3 fatty acids [Fish Oil Concentrate] 1,000 mg capsule 1,000 mg PO DAILY potassium 99 mg tablet 10 mg PO .COMPLEX Rx Instructions: 10 mg PO every other day; cannabidiol 100 mg/mL solution PO HS Rx Instructions: DAUGHTER NOT SURE (DME) Oxygen Home Liters Per Minute See Rx Instructions .ROUTE .MEDSUPPLY Qty: 1 0RF Rx Instructions: Oxygen conserving device or POC - 3 L/min via nasal cannula with physical activity and at night, DME aero care escitalopram oxalate 10 mg tablet 10 mg PO .COMPLEX Qty: 30 2RF Rx Instructions: 10 mg orally 1/2 pill dony for 8 days then 1 pill a day; torsemide 10 mg tablet 10 mg PO DAILY PRN (Reason: Fluid Retention) prednisone 10 mg tablet 10 mg PO DAILY Qty: 30 2RF Rx Instructions: as directed cephalexin 500 mg capsule 500 mg PO QID Qty: 40 0RF calcium carbonate 600 mg calcium (1,500 mg) tablet 600 mg PO DAILY cholecalciferol (vitamin D3) 5,000 unit tablet 5,000 units PO DAILY lansoprazole 15 mg capsule,delayed release(DR/EC) 15 mg PO DAILY multivitamin tablet 1 tab PO DAILY promethazine-codeine 6.25-10 mg/5 mL syrup 0 ml PO Q6H PRN (Reason: Other) Qty: 1 Rx Instructions: DAUGHTER DIDN'T GIVE DOSE aspirin 325 mg Tablet 325 mg PO DAILY Referrals Referrals: Ida Jon MD [Primary Care Provider] -
--- NOTE | 2022-08-25 18:44 | History & Physical Report ---
Date of Service August 25, 2022 Assessment & Plan (1) Open wound of lower extremity: Plan: -Admit to med/sure -Current stable, no signs of systemic infection at this time -Patient with significant RLE lateral wound with eschar and pustular drainage with multiple smaller wounds with eschar on the BL lower extremities -Has been following with Dr. Gooden of Rheumatology who started the patient on keflex on 08/19 without improvement -Dr. 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 Gooden regarding the need to hold prednisone due progressive infection. Besides monitoring for adrenal insufficiency he is fine holding the prednisone while treating her active infection. The patient has been on 10 mg daily for approximately 1 month, at this time we will decrease her dose to 5 mg daily staring tomorrow and for a least a few more days before stopping completely. -Blood and wound cultures obtained ini the ED, continue to follow -Wound care nurse consult ordered -Will use full dose aspirin for DVT PPX overnight in case of possible procedure tomorrow -HH diet -AM CBC, CMP, Mag, PT/INR (2) Dyslipidemia: Plan: -Hold stain while on daptomycin (3) Polymyalgia rheumatica: Plan: -Will start slow taper of Prednisone tomorrow with 5 mg daily, continue to taper over the next few days before stopping completely (4) Interstitial lung disease: Plan: -Stable on her baseline 2L prn during the day -Is supposed to wear 2L HS but is often non-compliant due to progressive cognitive impairment -Continue home breathing treatments and O2 (5) PSVT (paroxysmal supraventricular tachycardia): Plan: -Stable -Continue metoprolol (6) Cognitive impairment: Plan: -Was seen by Neurology last week for her first appointment -Continue Escitalopram (7) Gastroesophageal reflux disease: Plan: -Continue daily PPI Plan The patient was discussed with Dr. Menchaca at the time of the admission History of Present Illness Chief Complaint: Progressive BL LE wounds Primary Care Provider: Ida Jon MD Zee is an 82 year old female with a PMH significant for progressive cognitive impairment, interstitial lung disease with chronic hypoxic respiratory failure on baseline 3L, GERD, paroxysmal SVT, PMR, and chronic traumatic RLE wound who presented to the [facility] [place] due to concerns for progression of her RLE wounds. Per chart review, the patient presented for outpatient US of the RLE ordered by Dr. Gooden of Rheumatology due to progression of a RLE wound. Due to concerns for significant infection the patient was sent to the ED from [place]. In the ED the patient was noted to be stable. Labs were significant for a leukocytosis of 11 (down from 12 as of 07/28), improving neutrophil count of 7.91, stable ESR of 62, CRP of 7.8 (up from 5.91 as of 08/17), negative procal. BL LE arterial Doppler were read as There is no sonographic evidence of high-grade stenosis or focal vessel cut off throughout the arteries of the right or left lower extremity.. Prior to admission the patient was given a dose of daptomycin and zosyn. At the time of the exam the patient was sitting in bed in no acute distress with her daughter/POA sitting bedside, history was mainly obtained from her daughter due to the patient's baseline cognitive status. Her daughter states that since the last clinic visit with Dr. Gooden on 08/19 and starting the Keflex on that day the patient's BL LE wounds appear to be progressing. Her RLE continues to be red, swollen and her large lower RLE wound eschar has progressed as well. They deny recent fever, chills, chest pain, increased SOB, abd pain, nausea, vomiting, diarrhea, dysuria, hematuria, melena, and recent trauma. The patient's daughter explains that the patient is supposed to wear her O2 at night and as needed during the day. She states that the patient often takes it off and forgets to put it back on. Her daughter is also unsure if the patient has been taking the full dose aspirin every day as recommended by Dr. Gooden. I spoke to the patient's daughter/POA regarding code status, the patient has a living will and is currently a full code. Per Dr. 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 At that visit he started her on a 10 day course of Keflex and ordered the BL LE arterial Doppler. He also wanted the patient on full dose daily aspirin to promote increased blood flow. I was able to speak with Dr. Gooden on the phone, appreciate his help. At this time his main concern for admission is treatment and control of her acute infection. He has already spoken with Dr. Bethea who will see the patient outpatient for further evaluation and workup of recently positive cryoglobulin screen. Please refer to Dr. Menchaca's attestation for any changes to the treatment plan Allergies Allergy/AdvReac Type Severity Reaction Status Date / Time No Known Drug Allergies Allergy Verified 08/20/22 10:57 Home Medications Medication Instructions Recorded Confirmed Type calcium carbonate 600 mg calcium 600 mg PO DAILY 08/29/18 08/25/22 History (1,500 mg) tablet cholecalciferol (vitamin D3) 125 5,000 units PO DAILY 08/29/18 08/25/22 History mcg (5,000 unit) tablet lansoprazole 15 mg capsule,delayed 15 mg PO DAILY 08/29/18 08/25/22 History release multivitamin 1 tab PO DAILY 08/29/18 08/25/22 History magnesium chloride 64 mg 64 mg PO DAILY 09/09/18 08/25/22 History (magnesium chloride) tablet,delayed release omega-3 fatty acids 1,000 mg 1,000 mg PO DAILY 09/16/18 08/25/22 History capsule (Fish Oil Concentrate) fexofenadine 60 mg tablet (Kendra 60 mg PO DAILY PRN Allergy Symptoms 10/06/18 08/25/22 History Allergy) potassium 99 mg tablet 10 mg PO .COMPLEX 01/24/19 08/25/22 History promethazine 6.25 mg-codeine 10 0 ml PO Q6H PRN Other #1 mL 01/24/19 08/25/22 History mg/5 mL syrup cannabidiol 100 mg/mL oral solution PO HS 08/29/19 08/20/22 History benzonatate 200 mg capsule 200 mg PO TID PRN cough #270 caps 04/16/21 08/25/22 Rx rosuvastatin 10 mg tablet (Crestor) 10 mg PO DAILY #90 tabs 09/04/21 08/25/22 Rx albuterol sulfate 90 mcg/actuation 2 puff inhalation Q4H PRN 04/10/22 08/25/22 Rx aerosol inhaler shortness of breath or wheezing #18 grams conjugated estrogens 0.3 mg tablet 0.3 mg PO DAILY #160 tabs 06/23/22 08/25/22 Rx metoprolol succinate 25 mg 25 mg PO DAILY #90 tabs 07/07/22 08/25/22 Rx tablet,extended release 24 hr torsemide 10 mg tablet 10 mg PO DAILY PRN Fluid Retention 07/16/22 08/25/22 History Oxygen Home #1 ea 08/05/22 08/20/22 Rx escitalopram oxalate 10 mg tablet 10 mg PO .COMPLEX #30 tabs 08/05/22 08/25/22 Rx prednisone 10 mg tablet 10 mg PO DAILY #30 tabs 08/06/22 08/25/22 Rx cephalexin 500 mg capsule 500 mg PO QID #40 caps 08/19/22 08/25/22 Rx aspirin 325 mg tablet 325 mg PO DAILY 08/25/22 08/25/22 History Past Med/Surg History Medical History Cough variant asthma Dyslipidemia Gastroesophageal reflux disease PSVT (paroxysmal supraventricular tachycardia) Vitamin D deficiency Surgical History H/O: hysterectomy History of lung biopsy Hx of biopsy (08/12/22) Skin, left lower extremity, punch biopsy: In office Dr. River - Ischemic necrosis. - See comment. Family History Father Hypertension Dyslipidemia Cancer Hearing loss Heart disease Mother Dementia Heart disease Daughter Allergies Aunt Stroke Uncle Stroke Denies family history of Ovarian cancer Prostate cancer No family history of adverse response to anesthesia No family history of bleeding disorder Breast cancer Lung cancer Colorectal cancer Asthma Social History Smoking Status: Former smoker Tobacco Type: Cigarettes Age Started Using Tobacco: 21; Age Quit Using Tobacco: 32; packs per day: 0.5; Second Hand Exposure: No; Do You Dip or Chew Tobacco: No; Hx Alcohol Use: Yes Alcohol type: wine Alcohol Intake Frequency: 4 or More x per/Week Alcohol Intake Frequency Comment: glass of wine every night per new patient form. Hx Substance Use: No Preferred Language: Turkmen Communication Ability: Effective Visual Impairment: Limited Hearing Ability: Normal Nail Professional Required: No marital status: Current Living Situation: Alone current occupational status: retired Feels Safe at Home: Yes Childhood Exposure to Second-Hand Smoke: Yes Diet: low salt caffeine: Yes (periodically) Dental Care, Regularly: Yes Physical Activity Frequency: Does not Exercise Seatbelt Use: always Sunscreen Use: Yes Do you think of yourself as: straight/heterosexual Assistive Devices: Oxygen - at Night Physical Exam Physical Exam: Physical Exam: General: In no acute distress, stated age, well-nourished, non-toxic appeari ng HEENT: Normocephalic, atraumatic, no scleral icterus, pupils around round, symmetrical, and reactive to light, NC in place, moist mucus membranes, trachea midline, no thyromegaly Chest/Pulm: No respiratory distress, symmetrical chest expansion, clear breath sounds throughout Cardiac: RRR, no murmurs noted Abdomen: Negative for ascites and bruising, normoactive bowel sounds, soft, non-tender to palpation throughout Musculoskeletal: Symmetrical and without signs of acute trauma, upper and lower extremities with full ROM, no atrophy, spasticity, or flaccidity Extremities: Radial, dorsalis pedis, and posterior tibial pulses are intact and symmetrical, increased edema, swelling, and erythema of the RLE compared to left Skin: Patient with significant erythema and swelling of the BL LE with right > left, large chronic wound located over the right distal/lateral malleolus with smaller wounds on the medial aspect of the right distal LE, LLE is also swollen and erythematous with previous punch biopsy sites on the left lateral distal leg currenly with eschar. Pus is noted to be draining from the large wound on the right LE. Neuro: Alert and oriented to person and place only, no focal defects, CN II- XII tested and intact, no tremors noted Psych: No acute distress, calm and cooperative during the exam Results & Data Results & Data Vital Signs (Past 12 Hours) Vital Signs Temp Pulse Pulse Resp BP BP Pulse Ox 08/25/22 16:21 87 17 128/66 97 08/25/22 15:29 88 L 08/25/22 15:26 88 L 08/25/22 13:57 36.8 C 94 H 18 141/76 H 99 08/25/22 13:57 36.8 C 94 H 18 141/76 H 99 O2 Del Method O2 Flow Rate 08/25/22 16:21 Nasal Cannula 2 08/25/22 15:29 Room Air 08/25/22 15:26 Room Air 08/25/22 13:57 Room Air 08/25/22 13:57 Room Air Laboratory Results Abnormal lab results 08/25/22 08/25/22 08/25/22 Range/Units 14:34 14:34 14:34 WBC 11.37 H (4.8-10.8) K/ul RDW Std Deviation 52.3 H (36.4-46.3) fL RDW Coeff of Viktor 15.3 H (11.5-14.5) % Plt Count 458 H (130-400) K/uL MPV 8.2 L (9.4-12.4) fL Neut # (Auto) 7.91 H (1.40-6.50) K/uL Eos # (Auto) 1.16 H (0-0.50) K/uL ESR 62 H (0-30) mm/hr Creatinine 0.53 L (0.6-1.2) mg/dl BUN/Creatinine Ratio 32.1 H (10-20) C-Reactive Protein 7.80 H (0-0.5) mg/dl Diagnostic Findings ULTRASOUND BILATERAL LOWER EXTREMITY ARTERIAL CLINICAL HISTORY: Dermatitis. Lower extremity wounds. COMPARISON STUDY: No priors. TECHNIQUE: Real-time, grayscale, and color Doppler sonography of the arteries of the right and left lower extremity is performed from the inguinal crease to the foot. Ankle-brachial indices were not assessed due to lower extremity wounds. FINDINGS: Right lower extremity: Atherosclerotic plaque and irregularity is noted throughout the arteries of the right lower extremity. There are triphasic arterial waveforms in the right common femoral artery with velocities measuring up to 125 cm/s. The profunda femoris artery is patent with velocities measuring up to 74 cm/s. There are biphasic waveforms throughout the superficial femoral and popliteal arteries. Velocities in the superficial femoral artery measure up to 161 cm/s and velocities in the popliteal artery measure up to 90 cm/s. There is three-vessel runoff to the foot. There is blunted arterial upstroke within the calf vessels. Velocities within the calf arteries measure up to 129 cm/s. The dorsalis pedis is patent with velocities measuring up to 40 cm/s. Left lower extremity: Atherosclerotic plaque and irregularity is seen throughout the arteries of the left lower extremity. Triphasic arterial waveforms are seen in the common femoral artery with velocities measure up to 105 cm/s. The profunda femoris artery is patent with velocities measuring up to 46 cm/s. There are triphasic to biphasic waveforms throughout the superficial femoral and popliteal arteries. Velocities within the superficial femoral artery measure up to 121 cm/s and velocities in the popliteal artery measure up to 74 cm/s. There is three-vessel runoff to the foot. There is slightly blunted arterial upstroke within the calf vessels. Velocities within the calf arteries measure up to 102 cm/s. The dorsalis pedis artery is patent with velocities measuring up to 44 cm/s. IMPRESSION: There is no sonographic evidence of high-grade stenosis or focal vessel cut off throughout the arteries of the right or left lower extremity. Dictated: 08/25/2022 3:03 PM Transcribed: 08/25/2022 3:52 PM Yunior [id number] CARSON_Rylan [id number] Electronically signed by: Kvng Jones M.D. 08/25/2022 4:02 PM Dictated:08/25/22 1503 Transcribed: 08/25/22 1552 ECG Additional Comments: Will obtain ECG on admission Code Status & VTE Plan Code Status Full code VTE Prophylaxis Plan VTE Prophylaxis will be ordered: Yes Supervising Physician Co-Signing Physician Notes Patient seen and examined, chart reviewed, case discussed with Galileo Thompson PA-C and I agree with the assessment and plan as above except as otherwise noted above. Seen at bedside, pt is with R lateral ulceration nonhealing wound with central eschar and surrounding acute warmth/tenderness/erythema. 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 Clinically appears infected with drainage, agree with abx and full dose aspirin at this time. Agree w/ prenisone downtitration, avoid cessation 2/2 risk of AI due to chronic use would downtitrate over time. Pt is forgetful at times, daughter would like to be kept up to date daily with any updates. No additional quesitons at concerns, agree with assessment and plan as above. CT remain spending at time of admission. All labs and images reviewed PG Care Time/CCT Total # of Minutes Spent Total Time Spent with Patient: Total time spent is greater than 50% in coordination of care (as documented) at patient's floor/unit and/or counseling patient: C[place] [address] INT INP/OBS CARE 3/75MIN Patient Type Established Medical Decision Making High Complexity Diagnoses Open wound of lower extremity S81.809A Dyslipidemia E78.5 Polymyalgia rheumatica M35.3 Interstitial lung disease J84.9 PSVT (paroxysmal supraventricular tachycardia) I47.1 Cognitive impairment R41.89 Gastroesophageal reflux disease K21.9 Esophagitis presence: esophagitis presence not specified (7) Gastroesophageal reflux disease Esophagitis presence: esophagitis presence not specified Qualified Code(s): K21.9 - Gastro-esophageal reflux disease without esophagitis
[2022-08-25] MEDS ORDERED: OPTIRAY 320 100ml IV ONE (20:10)
--- NOTE | 2022-08-25 20:49 | Ultrasound Report ---
Exam(s): US VENOUS RIGHT LOWER EXTREMITY EXAM: US Duplex Right Lower Extremity Veins CLINICAL HISTORY: Reason for exam: chronic RLE wound, right lower extremity more swollen and red. TECHNIQUE: Real-time duplex ultrasound scan of the right lower extremity veins integrating B-mode two-dimensional vascular structure, Doppler spectral analysis, color flow Doppler imaging and compression. COMPARISON: No relevant prior studies available. FINDINGS: Deep veins: Unremarkable. No DVT in the visualized common femoral, femoral, proximal deep femoral or popliteal veins. The veins demonstrate normal color flow, are normally compressible, with normal phasic flow and/or augmentation response. Superficial veins: Unremarkable. No thrombus in the visualized great saphenous vein. Soft tissues: No acute findings. No popliteal cyst. IMPRESSION: Normal right lower extremity duplex venous ultrasound. Electronically signed by: Darien Navas MD 08/25/22 20:48 PM
--- NOTE | 2022-08-25 21:09 | CT Scan Report ---
Exam(s): CT LEFT ANKLE With Contrast IV Amt: 93ml EXAM: CT Left Lower Extremity With Intravenous Contrast, Ankle CLINICAL HISTORY: Reason for exam: BL LE wounds, please evaluate extent on infection. TECHNIQUE: Axial computed tomography images of the left ankle with intravenous contrast. CTDI is 6 mGy and DLP is 304 mGy-cm. Automated exposure control was utilized for the study. A dose lowering technique was utilized adhering to the principles of ALARA. CONTRAST: Patient received 93ml of IV contrast COMPARISON: No relevant prior studies available. FINDINGS: Bones/joints: No focal areas of osteolysis are seen to indicate osteomyelitis. No acute fracture or dislocation is seen. Soft tissues: Mild skin thickening abdomen the ankle circumferentially, greatest medially may indicate cellulitis. No abscess or undrained fluid collection is seen. IMPRESSION: 1. No focal areas of osteolysis are seen to indicate osteomyelitis. 2. Mild skin thickening abdomen the ankle circumferentially, greatest medially may indicate cellulitis. No abscess or undrained fluid collection is seen. Electronically signed by: Darien Navas MD 08/25/22 21:08 PM
--- NOTE | 2022-08-25 21:27 | CT Scan Report ---
Exam(s): CT RIGHT ANKLE With Contrast IV Amt: 93ml EXAM: CT Right Lower Extremity With Intravenous Contrast, Ankle CLINICAL HISTORY: Reason for exam: BL LE wounds, please evaluate extent on infection. TECHNIQUE: Axial computed tomography images of the right ankle with intravenous contrast. CTDI is 6 mGy and DLP is 304 mGy-cm. Automated exposure control was utilized for the study. A dose lowering technique was utilized adhering to the principles of ALARA. CONTRAST: Patient received 93ml of IV contrast COMPARISON: No relevant prior studies available. FINDINGS: Bones/joints: The osseous structures appear intact and normally aligned. No acute fracture or dislocation is seen. No focal osteolysis is seen to suggest osteomyelitis. Soft tissues: There are superficial wounds involving the skin and subcutaneous tissues over the lateral aspect of the right lower leg, immediately superior to the lateral malleolus. These measure up to 3 cm in diameter and 3 mm in depth. No subcutaneous emphysema, foreign body, or abscess is seen. IMPRESSION: 1. No focal osteolysis is seen to suggest osteomyelitis. 2. There are superficial wounds involving the skin and subcutaneous tissues over the lateral aspect of the right lower leg, immediately superior to the lateral malleolus. These measure up to 3 cm in diameter and 3 mm in depth. No subcutaneous emphysema, foreign body, or abscess is seen. Electronically signed by: Darien Navas MD 08/25/22 21:25 PM
--- NOTE | 2022-08-25 21:39 | CT Scan Report ---
Exam(s): CT EXTREMITY RIGHT LOWER With Contrast IV Amt: 93ml EXAM: CT Right Lower Extremity With Intravenous Contrast CLINICAL HISTORY: Reason for exam: BL LE wounds, please evaluate extent on infection. TECHNIQUE: Axial computed tomography images of the right lower extremity with intravenous contrast. CTDI is 6 mGy and DLP is 304 mGy-cm. Automated exposure control was utilized for the study. A dose lowering technique was utilized adhering to the principles of ALARA. CONTRAST: Patient received 93ml of IV contrast COMPARISON: No relevant prior studies available. FINDINGS: Bones/joints: There is mild narrowing and osteophytosis of the medial, lateral, and patellofemoral joint spaces of the right knee consistent with osteoarthritis. No acute fracture or dislocation is seen. No focal areas of osteolysis are seen to indicate osteomyelitis. Soft tissues: Superficial ulceration measuring 3-4 mm deep and up to 3 cm maximum AP diameter of the lateral aspect of the right lower leg. No abscess, foreign body, or subcutaneous emphysema is identified. IMPRESSION: 1. No focal areas of osteolysis are seen to indicate osteomyelitis. 2. There is mild narrowing and osteophytosis of the medial, lateral, and patellofemoral joint spaces of the right knee consistent with osteoarthritis. No acute fracture or dislocation is seen. 3. Superficial ulceration measuring 3-4 mm deep and up to 3 cm maximum AP diameter over the lateral aspect of the right lower leg. No abscess, foreign body, or subcutaneous emphysema is identified. Electronically signed by: Darien Navas MD 08/25/22 21:38 PM
[2022-08-25] MEDS: PIPERACILLIN/TAZOBACTAM 4.5 GM in DEXTROSE 5% 100 ML IV SCH (21:42)
--- NOTE | 2022-08-25 21:42 | CT Scan Report ---
Exam(s): CT EXTREMITY LEFT LOWER With Contrast IV Amt: 93ml EXAM: CT Left Lower Extremity With Intravenous Contrast CLINICAL HISTORY: Reason for exam: BL LE wounds, please evaluate extent on infection. TECHNIQUE: Axial computed tomography images of the left lower extremity with intravenous contrast. CTDI is 6 mGy and DLP is 304.83 mGy-cm. Automated exposure control was utilized for the study. A dose lowering technique was utilized adhering to the principles of ALARA. CONTRAST: Patient received 93ml of IV contrast COMPARISON: No relevant prior studies available. FINDINGS: Bones/joints: Mild narrowing and osteophytosis of the medial, lateral, and patellofemoral joint spaces of the left knee consistent with osteoarthritis. No acute fracture or dislocation is seen. No joint effusion is seen. No focal areas of osteomyelitis are identified. Soft tissues: Mild skin thickening over the medial aspect of the ankle consistent with cellulitis. No abscess, subcutaneous emphysema, or foreign body is seen. IMPRESSION: 1. No focal areas of osteomyelitis are identified. 2. Mild skin thickening over the medial aspect of the ankle consistent with cellulitis. 3. Mild osteoarthritic changes in the left knee. Electronically signed by: Darien Navas MD 08/25/22 21:41 PM
[2022-08-25] MEDS ORDERED: ALBUTEROL HFA 8 GM INHALER INH PRN (21:44)
[2022-08-25] MEDS ORDERED: BENZONATATE 100 MG CAPSULE PO PRN (21:44)
[2022-08-25] MEDS ORDERED: FEXOFENADINE 60 MG TAB PO PRN (21:44)
[2022-08-26] MEDS: PIPERACILLIN/TAZOBACTAM 4.5 GM in DEXTROSE 5% 100 ML IV SCH ×3 (06:07→21:41)
[2022-08-26 08:38] LABS: Basophils # (auto) 0.09 K/uL (0-0.2); Basophils % (auto) 0.8 %; Eosinophils # (auto) 1.08 K/uL (0-0.50); Hematocrit (blood only) 34.9 % (37.0-47.0); Hemoglobin 11.6 g/dl (12.0-16.0); Immature Granulocytes # (auto) 0.06 K/uL (0.01-0.20); Immature Granulocytes % (auto) 0.6 %; Lymphocytes # (auto) 0.86 K/uL (1.2-3.4); Mean Corpuscular Hemoglobin 30.3 pg (25.0-34.0); Mean Corpuscular Hgb Conc 33.2 g/dL (32.0-36.0); Mean Corpuscular Volume 91.1 fL (80.0-100.0); Mean Platelet Volume 8.3 fL (9.4-12.4); Monocytes # (auto) 0.59 K/uL (0.11-0.59); Monocytes % (auto) 5.5 %; Neutrophils # (auto) 8.13 K/uL (1.40-6.50); Neutrophils % (auto) 75.1 %; Platelet Count 408 K/uL (130-400); RDW Coefficient of Variation 15.6 % (11.5-14.5); RDW Standard Deviation 51.4 fL (36.4-46.3); Red Blood Count 3.83 M/uL (4.20-5.40); White Blood Count 10.81 K/ul (4.8-10.8)
[2022-08-26] MEDS ORDERED: LANSOPRAZOLE 15 MG CAPCR PO SCH (09:00)
[2022-08-26 09:02] LABS: Albumin Globulin Ratio 1.1 (0.9-2); Albumin Level 3.2 gm/dl (3.4-5.0); BUN Creatinine Ratio 21.7 (10-20); Bilirubin,Total 0.4 mg/dl (0.2-1.0); Calcium 8.5 mg/dl (8.6-10.3); Creatinine Clr Calc Pharmacy 62.8 ml/min; Est GFR (African American) 99.8 ml/min; Est GFR (Non-African American) 86.1 ml/min; Globulin 2.9 gm/dl (2.5-4.0); Magnesium 1.9 mg/dl (1.7-2.4); Potassium 3.9 mmol/L (3.5-5.1); Prothrombin Time 10.9 Seconds (9.0-12.0); Total Protein 6.1 gm/dl (6.0-8.3)
[2022-08-26] MEDS: MAGNESIUM CHLORIDE W/CALCIUM 64MG DELAYED REL TAB PO SCH (09:04)
[2022-08-26] MEDS: METOPROLOL SUCC 25MG EXT REL TAB PO SCH (09:04)
[2022-08-26] MEDS: ASPIRIN 325 MG ECTAB PO SCH (09:05)
[2022-08-26] MEDS: ESCITALOPRAM OXALATE 10 MG TAB PO SCH (09:05)
[2022-08-26] MEDS: predniSONE 5 MG TAB PO SCH (09:05)
--- NOTE | 2022-08-26 14:13 | Electrocardiogram Report ---
Test Reason : Blood Pressure : / mmHG Vent. Rate : 080 BPM Atrial Rate : 080 BPM P-R Int : 192 ms QRS Dur : 070 ms QT Int : 386 ms P-R-T Axes : 080 018 -02 degrees QTc Int : 445 ms Normal sinus rhythm Low voltage QRS Nonspecific T wave abnormality Abnormal ECG When compared with ECG of 08-OCT-2016 12:12, No significant change was found Confirmed by Yaron Taylor ([id number]) on 08/26/2022 2:12:37 PM Referred By: Provider Outside Confirmed By:Reynold Taylor
--- NOTE | 2022-08-26 16:39 | Hospitalist Progress Note ---
Date of Service August 26, 2022 Assessment & Plan (1) Open wound of lower extremity: Plan: Continue 7 course of antibiotics for treatment of cellulitis with impaired small vessel blood flow No signs of abscess or osteomyelitis on CT Prednisone has been weaned to 5 mg daily, would discontinue this after another 7 days given chronic use Remains on daptomycin/Zosyn Leukocytosis is downtrending Pinpoint growth on cultures, preliminary, reintubating. Blood cultures remain pending Continue full dose aspirin for liveido vascular -S/P one dose of Daptomycin and Zosyn in the ED, will continue both for now as she has been immunocompromised on prednisone -Blood and wound cultures obtained ini the ED, continue to follow (2) Cryoglobulinemia: Plan: Discussed with hematology oncology. Low suspicion for MGUS/M spike based on review of labs. Recommended outpatient follow-up, no acute inpatient change in management. Agree with continuing aspirin. No steroid increase recommended. We will continue to treat infection, place, and have outpatient follow-up for further. Appreciate recommendation (3) Dyslipidemia: Plan: -Hold stain while on daptomycin (4) Polymyalgia rheumatica: Plan: - Continue pred 2.5, stop prednisone 09/02 (5) Interstitial lung disease: Plan: -Stable on her baseline 2L prn during the day -Is supposed to wear 2L HS but is often non-compliant due to progressive cog nitive impairment -Continue home breathing treatments and O2 (6) PSVT (paroxysmal supraventricular tachycardia): Plan: -Stable -Continue metoprolol (7) Cognitive impairment: Plan: -Was seen by Neurology last week for her first appointment -Continue Escitalopram (8) Gastroesophageal reflux disease: Plan: -Continue daily PPI Plan The patient was discussed with Dr. Menchaca at the time of the admission Admission and Anticipated Discharge Date Admission Date: August 25, 2022 Yaneli Koch is seen at the bedside. She reports her leg is still warm and hot, but she also feels a little better than yesterday.. She denies fever/chills/sweats/lightheadedness/dizziness. Is glad to hear that there is not evidence of abscess or osteo-. Review of Systems Review of Systems: All systems reviewed & are unremarkable except as noted in Subjective Physical Exam Physical Exam: General: Pleasant, oriented to name and place. NAD. Cooperative. Nontoxic HEENT: Atraumatic, normocephalic. Pulm: CTAB A&P. -wheezes, -rales, -rhonchi. Symmetrical chest rise. No increase in work of breathing. No respiratory distress. Cardiac: RRR, -mrg. Radial pulses intact and symmetrical. Abdominal: Nontender, nondistended, soft. BS present. Extremities: Bilateral mild erythema and swelling, significantly worse on the right with lateral malleoli or wound and scattered smaller wounds. Prior punch biopsy with eschar. Results & Data Results & Data Vital Signs (Past 12 Hours) Vital Signs Temp Pulse Resp BP BP Pulse Ox O2 Del Method 08/26/22 15:20 36.8 C 91 H 17 118/76 95 Nasal Cannula 08/26/22 07:50 Nasal Cannula 08/26/22 07:53 36.8 C 88 16 118/70 97 Nasal Cannula O2 Flow Rate 08/26/22 15:20 3 08/26/22 07:50 3 08/26/22 07:53 2 PG Care Time/CCT Total # of Minutes Spent Total Time Spent with Patient: Total time spent is greater than 50% in coordination of care (as documented) at patient's floor/unit and/or counseling patient: Coding Level of Care Code 77085 SUB INP/OBS CARE 3/50MIN Diagnoses Open wound of lower extremity S81.809A Cryoglobulinemia D89.1 Dyslipidemia E78.5 Polymyalgia rheumatica M35.3 Interstitial lung disease J84.9 PSVT (paroxysmal supraventricular tachycardia) I47.1 Cognitive impairment R41.89 Gastroesophageal reflux disease K21.9 Esophagitis presence: esophagitis presence not specified (8) Gastroesophageal reflux disease Esophagitis presence: esophagitis presence not specified Qualified Code(s): K21.9 - Gastro-esophageal reflux disease without esophagitis
[2022-08-26] MEDS: DAPTOmycin 200 MG in SYRINGE 0 ML IV SCH (18:44)
[2022-08-26] MEDS ORDERED: MoRPHine SULFATE 2 MG/ML CARP IV PRN (21:50)
[2022-08-26] MEDS: ACETAMINOPHEN 325 MG TAB PO PRN (22:00)
[2022-08-27] MEDS: PIPERACILLIN/TAZOBACTAM 4.5 GM in DEXTROSE 5% 100 ML IV SCH ×3 (06:28→21:54)
[2022-08-27 07:31] LABS: Basophils # (auto) 0.09 K/uL (0-0.2); Eosinophils # (auto) 1.03 K/uL (0-0.50); Hematocrit (blood only) 35.5 % (37.0-47.0); Hemoglobin 11.7 g/dl (12.0-16.0); Immature Granulocytes # (auto) 0.06 K/uL (0.01-0.20); Immature Granulocytes % (auto) 0.6 %; Lymphocytes # (auto) 1.29 K/uL (1.2-3.4); Lymphocytes % (auto) 13.8 %; Mean Corpuscular Hemoglobin 30.3 pg (25.0-34.0); Mean Platelet Volume 8.3 fL (9.4-12.4); Monocytes # (auto) 0.44 K/uL (0.11-0.59); Monocytes % (auto) 4.7 %; Neutrophils # (auto) 6.43 K/uL (1.40-6.50); Neutrophils % (auto) 68.9 %; Platelet Count 421 K/uL (130-400); RDW Coefficient of Variation 15.5 % (11.5-14.5); RDW Standard Deviation 52.1 fL (36.4-46.3); Red Blood Count 3.86 M/uL (4.20-5.40); White Blood Count 9.34 K/ul (4.8-10.8)
[2022-08-27 07:41] LABS: Albumin Globulin Ratio 1.1 (0.9-2); Albumin Level 3.3 gm/dl (3.4-5.0); BUN Creatinine Ratio 21.5 (10-20); Bilirubin,Total 0.4 mg/dl (0.2-1.0); Calcium 8.6 mg/dl (8.6-10.3); Est GFR (African American) 97.2 ml/min; Est GFR (Non-African American) 83.9 ml/min; Globulin 3.1 gm/dl (2.5-4.0); Magnesium 1.8 mg/dl (1.7-2.4); Potassium 3.7 mmol/L (3.5-5.1); Total Protein 6.4 gm/dl (6.0-8.3)
[2022-08-27] MEDS: ASPIRIN 325 MG ECTAB PO SCH (08:42)
[2022-08-27] MEDS: METOPROLOL SUCC 25MG EXT REL TAB PO SCH (08:42)
[2022-08-27] MEDS: LANSOPRAZOLE 15 MG SOLTAB PO SCH (08:42)
[2022-08-27] MEDS: predniSONE 5 MG TAB PO SCH (08:42)
[2022-08-27] MEDS: MAGNESIUM CHLORIDE W/CALCIUM 64MG DELAYED REL TAB PO SCH (08:42)
[2022-08-27] MEDS: ESCITALOPRAM OXALATE 10 MG TAB PO SCH (08:42)
--- NOTE | 2022-08-27 17:55 | Hospitalist Progress Note ---
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 Patient has been started on full dose aspirin for this Bilateral lower extremity Dopplers have been negative for arterial occlusion Lower extremity CT showed skin thickening over the medial aspect of the left knee suspicious for cellulitis. Right lower extremity with superficial ulceration but no abscess/foreign body/emphysema identified. No evidence of osteomyelitis Bilateral lower extremity Dopplers did not show evidence of DVT Based on warm, tender left lower extremity with CT as noted patient was treated for cellulitis and antibiotics were expanded from Keflex to Zosyn. Given impaired blood flow state and chronic wounds did want to include anaerobic coverage. Wound cultures initially obtained, pinpoint growth and patient was held awaiting culture results. Use of subsequently been reintubated with delayed return, suspect that this may come back as normal santos. Continue to follow for final cultures and adjust as necessary Patient has been on Augmentin in the past and tolerated this well, reasonable discharge agent and no pseudomonal growth has been identified PT/OT pending for 08/27. Patient prefers discharge home but has been unsteady on her feet and is agreeable to rehab if needed Will require wound care follow-up on discharge Patient will follow-up with hematology oncology for cryoglobulinemia, this was discussed with heme-onc and do not suspect M spike/MGUS and her total protein has subsequently been normal. MRSA has not grown so far out of cultures, nares pending. If positive will continue Doxy adjunct therapy at this (2) Cryoglobulinemia: Plan: Discussed with hematology oncology. Low suspicion for MGUS/M spike based on r dillonw of labs. Recommended outpatient follow-up, no acute inpatient change in management. Aspirin continued as noted no steroid increase recommended. We will continue to treat infection, place, and have outpatient follow-up for further. Appreciate recommendation (3) Dyslipidemia: Plan: -Hold stain while on daptomycin (4) Polymyalgia rheumatica: Plan: - Continue pred 2.5 daily, stop prednisone 09/02 (5) Interstitial lung disease: Plan: -Stable on her baseline 2L prn during the day -Is supposed to wear 2L HS but is often non-compliant due to progressive cognitive impairment -Continue home breathing treatments and O2 (6) PSVT (paroxysmal supraventricular tachycardia): Plan: -Stable -Continue metoprolol (7) Cognitive impairment: Plan: -Was seen by Neurology last week for her first appointment -Continue Escitalopram At baseline 09/13 (8) Gastroesophageal reflux disease: Plan: -Continue daily PPI Plan Patient is clinically well and recommended to be converted to orals in progress to discharge. PT/OT is pending, anticipate discharge home with home health and follow-up to wound care versus rehab. Patient is somewhat unsteady on her feet today. Admission and Anticipated Discharge Date Admission Date: August 25, 2022 Yaneli Koch is seen at the bedside, and seen on reassessment with her daughters present in the afternoon. She feels greatly improved, the leg swelling in her feet bilaterally is also greatly improved. Erythema/warmth improved, although her lower extremity still do feel sore. She feels a little bit weak on her feet and notes that she quires assistance to the bathroom and tends to grab onto things when trying to walk. She does not have lightheadedness, dizziness or presyncope. Denies fever/chills/sweats. Overall feels greatly improved today, has not yet seen PT/OT at time of Review of Systems Review of Systems: All systems reviewed & are unremarkable except as noted in Subjective Physical Exam Physical Exam: General: Pleasant, oriented to name and place. NAD. Cooperative. HEENT: Atraumatic, normocephalic. Pulm: CTAB A&P. -wheezes, -rales, -rhonchi. Symmetrical chest rise. No increase in work of breathing. No respiratory distress. Cardiac: RRR, -mrg. Radial pulses intact and symmetrical. Abdominal: Nontender, nondistended, soft. BS present. Extremities: Distal lower extremities rewrapped. Erythema/warmth greatly improved; edema minimal and greatly improved from prior Results & Data Results & Data Vital Signs (Past 12 Hours) Vital Signs Temp Pulse Resp BP Pulse Ox O2 Del Method O2 Flow Rate 08/27/22 16:40 94 Nasal Cannula 2 08/27/22 15:45 37.1 C 86 16 112/70 86 L Room Air 07/13/23 08:15 Nasal Cannula 3 08/27/22 08:49 36.8 C 86 16 117/69 95 Nasal Cannula 2 08/27/22 07:28 97 Nasal Cannula 3 08/27/22 07:19 36.6 C 84 16 108/65 87 L Room Air PG Care Time/CCT Total # of Minutes Spent Total Time Spent with Patient: Total time spent is greater than 50% in coordination of care (as documented) at patient's floor/unit and/or counseling patient: Coding Level of Care Code 99148 SUB INP/OBS CARE 2/35MIN Diagnoses Open wound of lower extremity S81.809A Cryoglobulinemia D89.1 Dyslipidemia E78.5 Polymyalgia rheumatica M35.3 Interstitial lung disease J84.9 PSVT (paroxysmal supraventricular tachycardia) I47.1 Cognitive impairment R41.89 Gastroesophageal reflux disease K21.9 Esophagitis presence: esophagitis presence not specified (8) Gastroesophageal reflux disease Esophagitis presence: esophagitis presence not specified Qualified Code(s): K21.9 - Gastro-esophageal reflux disease without esophagitis
[2022-08-27] MEDS: DAPTOmycin 200 MG in SYRINGE 0 ML IV SCH (18:42)
[2022-08-27] MEDS: ACETAMINOPHEN 325 MG TAB PO PRN (18:42)
[2022-08-28] MEDS: PIPERACILLIN/TAZOBACTAM 4.5 GM in DEXTROSE 5% 100 ML IV SCH ×2 (05:04→14:04)
[2022-08-28] MEDS: predniSONE 5 MG TAB PO SCH (07:49)
[2022-08-28] MEDS: ASPIRIN 325 MG ECTAB PO SCH (07:49)
[2022-08-28] MEDS: ESCITALOPRAM OXALATE 10 MG TAB PO SCH (07:49)
[2022-08-28] MEDS: METOPROLOL SUCC 25MG EXT REL TAB PO SCH (07:50)
[2022-08-28] MEDS: MAGNESIUM CHLORIDE W/CALCIUM 64MG DELAYED REL TAB PO SCH (07:50)
[2022-08-28] MEDS: LANSOPRAZOLE 15 MG SOLTAB PO SCH (07:50)
[2022-08-28 08:39] LABS: Basophils # (auto) 0.08 K/uL (0-0.2); Basophils % (auto) 0.7 %; Eosinophils # (auto) 0.98 K/uL (0-0.50); Eosinophils % (auto) 8.1 %; Hematocrit (blood only) 36.6 % (37.0-47.0); Hemoglobin 11.9 g/dl (12.0-16.0); Immature Granulocytes # (auto) 0.06 K/uL (0.01-0.20); Immature Granulocytes % (auto) 0.5 %; Lymphocytes # (auto) 1.27 K/uL (1.2-3.4); Lymphocytes % (auto) 10.5 %; Mean Corpuscular Hemoglobin 30.4 pg (25.0-34.0); Mean Corpuscular Hgb Conc 32.5 g/dL (32.0-36.0); Mean Corpuscular Volume 93.4 fL (80.0-100.0); Mean Platelet Volume 8.1 fL (9.4-12.4); Monocytes # (auto) 0.61 K/uL (0.11-0.59); Neutrophils # (auto) 9.09 K/uL (1.40-6.50); Neutrophils % (auto) 75.2 %; Platelet Count 437 K/uL (130-400); RDW Coefficient of Variation 15.4 % (11.5-14.5); RDW Standard Deviation 52.9 fL (36.4-46.3); Red Blood Count 3.92 M/uL (4.20-5.40); White Blood Count 12.09 K/ul (4.8-10.8)
[2022-08-28 08:51] LABS: Albumin Level 3.4 gm/dl (3.4-5.0); BUN Creatinine Ratio 23.8 (10-20); Bilirubin,Total 0.4 mg/dl (0.2-1.0); Calcium 8.8 mg/dl (8.6-10.3); Creatinine Clr Calc Pharmacy 59.8 ml/min; Est GFR (African American) 98.2 ml/min; Est GFR (Non-African American) 84.7 ml/min; Globulin 3.4 gm/dl (2.5-4.0); Magnesium 1.8 mg/dl (1.7-2.4); Potassium 3.6 mmol/L (3.5-5.1); Total Protein 6.8 gm/dl (6.0-8.3)
[2022-08-28 09:02] LABS: Prothrombin Time 10.7 Seconds (9.0-12.0)
--- NOTE | 2022-08-28 14:08 | XRay Report ---
XR chest 2V PA/lateral CLINICAL HISTORY: hypoxia TECHNIQUE: 2 views of the chest were obtained. Comparison: Comparison is made to chest radiographs 08/01/2019 FINDINGS: No lines and tubes are seen. The cardiomediastinal silhouette is normal. There is prominence and ceph alization of the vasculature with Clara B lines seen. No evidence of pleural effusion or pneumothora x. IMPRESSION: Moderate pulmonary edema. ACT 112: Negative or not required by law. Electronically signed by: Benjamin Wood M.D. 08/28/2022 2:06 PM
[2022-08-28] MEDS ORDERED: FUROSEMIDE 40 MG/4 ML VIAL IV ONE (16:46)
[2022-08-28] MEDS: DAPTOmycin 200 MG in SYRINGE 0 ML IV SCH (17:04)
[2022-08-28] MEDS: AMOXICILLIN/CLAVULANATE 875 MG TAB PO SCH (21:26)
--- NOTE | 2022-08-28 22:10 | Hospitalist Progress Note ---
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 Patient has been started on full dose aspirin for this Bilateral lower extremity Dopplers have been negative for arterial occlusion Lower extremity CT showed skin thickening over the medial aspect of the left knee suspicious for cellulitis. Right lower extremity with superficial ulceration but no abscess/foreign body/emphysema identified. No evidence of osteomyelitis Bilateral lower extremity Dopplers did not show evidence of DVT Based on warm, tender left lower extremity with CT as noted patient was treated for cellulitis and antibiotics were expanded from Keflex to Zosyn. Given impaired blood flow state and chronic wounds did want to include anaerobic coverage. Wound cultures initially obtained, pinpoint growth and patient was held awaiting culture results. Use of subsequently been reintubated with delayed return, suspect that this may come back as normal santos. Continue to follow for final cultures and adjust as necessary Patient has been on Augmentin in the past and tolerated this well, reasonable discharge agent and no pseudomonal growth has been identified PT/OT pending for 08/27. Patient prefers discharge home but has been unsteady on her feet and is agreeable to rehab if needed Will require wound care follow-up on discharge Patient will follow-up with hematology oncology for cryoglobulinemia, this was discussed with heme-onc and do not suspect M spike/MGUS and her total protein has subsequently been normal. MRSA has not grown so far out of cultures, nares pending. If positive will continue Doxy adjunct therapy at this Plan to discharge in AM, however due to increased oxygen needs. Chest xray was ordered. Showed signs of pulmonary edema. Will order one dose of IV lasix and monitor. (2) Cryoglobulinemia: Plan: Discussed with hematology oncology. Low suspicion for MGUS/M spike based on review of labs. Recommended outpatient follow-up, no acute inpatient change in management. Aspirin continued as noted no steroid increase recommended. We will continue to treat infection, place, and have outpatient follow-up for fu rther. Appreciate recommendation (3) Dyslipidemia: Plan: -Hold stain while on daptomycin (4) Polymyalgia rheumatica: Plan: - Continue pred 2.5 daily, stop prednisone 09/02 (5) Interstitial lung disease: Plan: -Stable on her baseline 2L prn during the day -Is supposed to wear 2L HS but is often non-compliant due to progressive cognitive impairment -Continue home breathing treatments and O2 (6) PSVT (paroxysmal supraventricular tachycardia): Plan: -Stable -Continue metoprolol (7) Cognitive impairment: Plan: -Was seen by Neurology last week for her first appointment -Continue Escitalopram At baseline 09/13 (8) Gastroesophageal reflux disease: Plan: -Continue daily PPI Plan Patient is clinically well and recommended to be converted to orals in progress to discharge. PT/OT is pending, anticipate discharge home with home health and follow-up to wound care versus rehab. Patient is somewhat unsteady on her feet today. Admission and Anticipated Discharge Date Admission Date: August 25, 2022 Subjective Patient reports no new symptoms. Review of Systems Review of Systems: All systems reviewed & are unremarkable except as noted in HPI & below Physical Exam Physical Exam: General: Pleasant, oriented to name and place. NAD. Cooperative. HEENT: Atraumatic, normocephalic. Pulm: CTAB A&P except for rales in bases. Cardiac: RRR, -mrg. Radial pulses intact and symmetrical. Abdominal: Nontender, nondistended, soft. BS present. Extremities: Distal lower extremities rewrapped. Erythema/warmth greatly improved; edema minimal and greatly improved from prior Results & Data Results & Data Vital Signs (Past 12 Hours) Vital Signs Temp Pulse Pulse Pulse Pulse Pulse Pulse 08/28/22 21:33 36.9 C 89 08/28/22 16:12 08/28/22 15:44 36.6 C 85 08/28/22 12:26 101 H 92 H 90 87 87 08/28/22 12:59 08/28/22 11:16 08/28/22 11:04 82 Resp Resp Resp Resp Resp Resp BP 08/28/22 21:33 18 97/59 L 08/28/22 16:12 18 08/28/22 15:44 12 119/72 08/28/22 12:26 24 22 22 20 22 08/28/22 12:59 08/28/22 11:16 08/28/22 11:04 Pulse Ox Pulse Ox Pulse Ox Pulse Ox Pulse Ox Pulse Ox Pulse Ox 08/28/22 21:33 90 08/28/22 16:12 94 08/28/22 15:44 91 08/28/22 12:26 86 L 86 L 92 91 86 L 08/28/22 12:59 95 08/28/22 11:16 95 08/28/22 11:04 94 Pulse Ox O2 Del Method O2 Flow Rate O2 Flow Rate O2 Flow Rate O2 Flow Rate O2 Flow Rate 08/28/22 21:33 Nasal Cannula 2 08/28/22 16:12 Room Air 3 08/28/22 15:44 Nasal Cannula 2.5 08/28/22 12:26 2 3 4 08/28/22 12:59 08/28/22 11:16 77 L 2 08/28/22 11:04 Nasal Cannula 2 O2 Flow Rate O2 Flow Rate 08/28/22 21:33 08/28/22 16:12 08/28/22 15:44 08/28/22 12:26 2 08/28/22 12:59 08/28/22 11:16 0 08/28/22 11:04 PG Care Time/CCT Total # of Minutes Spent Total Time Spent with Patient: Total time spent is greater than 50% in coordination of care (as documented) at patient's floor/unit and/or counseling patient: Coding Level of Care Code 66831 SUB INP/OBS CARE 2/35MIN Diagnoses Open wound of lower extremity S81.809A Cryoglobulinemia D89.1 Dyslipidemia E78.5 Polymyalgia rheumatica M35.3 Interstitial lung disease J84.9 PSVT (paroxysmal supraventricular tachycardia) I47.1 Cognitive impairment R41.89 Gastroesophageal reflux disease K21.9 Esophagitis presence: esophagitis presence not specified (8) Gastroesophageal reflux disease Esophagitis presence: esophagitis presence not specified Qualified Code(s): K21.9 - Gastro-esophageal reflux disease without esophagitis
[2022-08-29] MEDS: AMOXICILLIN/CLAVULANATE 875 MG TAB PO SCH (08:09)
[2022-08-29] MEDS: ASPIRIN 325 MG ECTAB PO SCH (08:09)
[2022-08-29] MEDS: predniSONE 5 MG TAB PO SCH (08:10)
[2022-08-29] MEDS: MAGNESIUM CHLORIDE W/CALCIUM 64MG DELAYED REL TAB PO SCH (08:10)
[2022-08-29] MEDS: LANSOPRAZOLE 15 MG SOLTAB PO SCH (08:10)
[2022-08-29] MEDS: ESCITALOPRAM OXALATE 10 MG TAB PO SCH (08:10)
[2022-08-29] MEDS: METOPROLOL SUCC 25MG EXT REL TAB PO SCH (08:54)
[2022-08-29 10:37] LABS: BUN Creatinine Ratio 32.8 (10-20); Calcium 9.3 mg/dl (8.6-10.3); Est GFR (African American) 100.9 ml/min; Est GFR (Non-African American) 87.1 ml/min; Potassium 3.7 mmol/L (3.5-5.1)
[2022-08-29] MEDS ORDERED: POTASSIUM CHLORIDE CRTAB 20 MEQ TABCR PO STA (11:15)
[2022-08-29] MEDS ORDERED: FUROSEMIDE INJ 20 MG/2 ML VIAL IV ONE (11:15)
--- NOTE | 2022-08-29 11:17 | Discharge Summary ---
Date of Service August 29, 2022 Admission HPI Per Admitting Provider Zee is an 82 year old female with a PMH significant for progressive cognitive impairment, interstitial lung disease with chronic hypoxic respiratory failure on baseline 3L, GERD, paroxysmal SVT, PMR, and chronic traumatic RLE wound who presented to the [facility] [place] due to concerns for progression of her RLE wounds. Per chart review, the patient presented for outpatient US of the RLE ordered by Dr. Goodne of Rheumatology due to progression of a RLE wound. Due to concerns for significant infection the patient was sent to the ED from [place]. In the ED the patient was noted to be stable. Labs were significant for a leukocytosis of 11 (down from 12 as of 07/28), improving neutrophil count of 7.91, stable ESR of 62, CRP of 7.8 (up from 5.91 as of 08/17), negative procal. BL LE arterial Doppler were read as There is no sonographic evidence of high-grade stenosis or focal vessel cut off throughout the arteries of the right or left lower extremity.. Prior to admission the patient was given a dose of daptomycin and zosyn. At the time of the exam the patient was sitting in bed in no acute distress with her daughter/POA sitting bedside, history was mainly obtained from her daughter due to the patient's baseline cognitive status. Her daughter states that since the last clinic visit with Dr. Gooden on 08/19 and starting the Keflex on that day the patient's BL LE wounds appear to be progressing. Her RLE continues to be red, swollen and her large lower RLE wound eschar has progressed as well. They deny recent fever, chills, chest pain, increased SOB, abd pain, nausea, vomiting, diarrhea, dysuria, hematuria, melena, and recent trauma. The patient's daughter explains that the patient is supposed to wear her O2 at night and as needed during the day. She states that the patient often takes it off and forgets to put it back on. Her daughter is also unsure if the patient has been taking the full dose aspirin every day as recommended by Dr. Gooden. I spoke to the patient's daughter/POA regarding code status, the patient has a living will and is currently a full code. Per Dr. 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 At that visit he started her on a 10 day course of Keflex and ordered the BL LE arterial Doppler. He also wanted the patient on full dose daily aspirin to promote increased blood flow. I was able to speak with Dr. Gooden on the phone, appreciate his help. At this time his main concern for admission is treatment and control of her acute infection. He has already spoken with Dr. Bethea who will see the patient outpatient for further evaluation and workup of recently positive cryoglobulin screen. Principal Diagnosis open wound of lower extremity Discharge Exam General: Pleasant, oriented to name and place. NAD. Cooperative. HEENT: Atraumatic, normocephalic. Pulm: CTAB A&P except for rales in bases. Cardiac: RRR, -mrg. Radial pulses intact and symmetrical. Abdominal: Nontender, nondistended, soft. BS present. Extremities: Distal lower extremities rewrapped. Erythema/warmth greatly improved; edema minimal and greatly improved from prior Discharge Data Allergies Allergy/AdvReac Type Severity Reaction Status Date / Time No Known Drug Allergies Allergy Verified 08/20/22 10:57 Consultations 08/25/22 16:36 ED Decision to Admit Stat Ordered Studies 08/25/22 18:07 CT ankle LT w con Stat CT ankle RT w con Stat CT leg [CT tib/fib LT w con] Stat CT leg [CT tib/fib RT w con] Stat 08/25/22 18:15 US venous doppler LE RT Stat Hospital Course (1) Open wound of lower extremity: Chronic lower extremity wounds, suspect left lower extremity cellulitis; right lower extremity with pustular drainage - On admit right lower extremity with eschar and pustular drainage, multiple smaller wounds with eschar on the bilateral lower extremities Patient had recently had Keflex prescribed on 08/19 prior to admission without improvement 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 Patient has been started on full dose aspirin for this Bilateral lower extremity Dopplers have been negative for arterial occlusion Lower extremity CT showed skin thickening over the medial aspect of the left knee suspicious for cellulitis. Right lower extremity with superficial ulceration but no abscess/foreign body/emphysema identified. No evidence of osteomyelitis Bilateral lower extremity Dopplers did not show evidence of DVT Based on warm, tender left lower extremity with CT as noted patient was treated for cellulitis and antibiotics were expanded from Keflex to Zosyn. Given impaired blood flow state and chronic wounds did want to include anaerobic coverage. Wound cultures initially obtained, pinpoint growth and patient was held awaiting culture results. Use of subsequently been reintubated with delayed return, suspect that this may come back as normal santos. Continue to follow for final cultures and adjust as necessary Patient has been on Augmentin in the past and tolerated this well, reasonable discharge agent and no pseudomonal growth has been identified PT/OT pending for 08/27. Patient prefers discharge home but has been unsteady on her feet and is agreeable to rehab if needed Will require wound care follow-up on discharge Patient will follow-up with hematology oncology for cryoglobulinemia, this was discussed with heme-onc and do not suspect M spike/MGUS and her total protein has subsequently been normal. MRSA has not grown so far out of cultures, nares pending. If positive will continue Doxy adjunct therapy at this 08/28/22 Plan to discharge in AM, however due to increased oxygen needs. Chest xray was ordered. Showed signs of pulmonary edema. Will order one dose of IV lasix and monitor. 08/29/22 Patient improved. SOB likely iatrogenic. Patient does take diuretics at home as needed. Patient will be discharged. Patient will complete course with augmentin. (2) Cryoglobulinemia: Discussed with hematology oncology. Low suspicion for MGUS/M spike based on review of labs. Recommended outpatient follow-up, no acute inpatient change in management. Aspirin continued as noted no steroid increase recommended. We will continue to treat infection, place, and have outpatient follow-up for further. Appreciate recommendation (3) Dyslipidemia: -Hold stain while on daptomycin will resume at discharge. (4) Polymyalgia rheumatica: - Continue pred 2.5 daily, stop prednisone 09/02 (5) Interstitial lung disease: -Stable on her baseline 2L prn during the day -Is supposed to wear 2L HS but is often non-compliant due to progressive cognitive impairment -Continue home breathing treatments and O2 (6) PSVT (paroxysmal supraventricular tachycardia): -Stable -Continue metoprolol (7) Cognitive impairment: -Was seen by Neurology last week for her first appointment -Continue Escitalopram At baseline 09/13 (8) Gastroesophageal reflux disease: -Continue daily PPI Plan Family agreeable to taking patient home with home health services. Total Time Total Time Spent Total Time Spent (In Minutes): 40 Discharge Plan Discharge Items Patient Disposition: Home - Home Health Services Reason For Visit: WORSENING RIGHT LE WOUND Discharge Diagnosis: cellulitis. Activity: Resume your previous activity Non-emergency contact: Primary Care Provider Call non-emergency contact if: you have any medication questions Follow-up/Referrals: Ida Jon MD [Primary Care Provider] - Diet: Heart Healthy Addtl Attending Provider Instructions: hematology oncology for cryoglobulinemia wound care with home health recommend followup with PCP in 1-2 weeks. Pending Studies at Discharge: No Stand-Alone Forms: My [facility] HotPads, Smoking Cessation Medications and DC Order Prescriptions: New amoxicillin-pot clavulanate 875-125 mg Tablet 1 tab PO BID Qty: 12 0RF prednisone 2.5 mg tablet 2.5 mg PO DAILY Qty: 6 0RF Rx Instructions: take first dose in AM Continued benzonatate 200 mg capsule 200 mg PO TID PRN (Reason: cough) Qty: 270 3RF rosuvastatin [Crestor] 10 mg tablet 10 mg PO DAILY Qty: 90 3RF albuterol sulfate 90 mcg/actuation HFA aerosol inhaler 2 puff INH Q4H PRN (Reason: shortness of breath or wheezing) Qty: 18 5RF conjugated estrogens 0.3 mg tablet 0.3 mg PO DAILY Qty: 160 0RF Rx Instructions: Take 1 tablet HS days 1 to of every month metoprolol succinate 25 mg tablet extended release 24 hr 25 mg PO DAILY Qty: 90 3RF fexofenadine [Kendra Allergy] 60 mg tablet 60 mg PO DAILY PRN (Reason: Allergy Symptoms) magnesium chloride 64 mg tablet,delayed release (DR/EC) 64 mg PO DAILY omega-3 fatty acids [Fish Oil Concentrate] 1,000 mg capsule 1,000 mg PO DAILY potassium 99 mg tablet 10 mg PO .COMPLEX Rx Instructions: 10 mg PO every other day; cannabidiol 100 mg/mL solution PO HS Rx Instructions: DAUGHTER NOT SURE (DME) Oxygen Home Liters Per Minute See Rx Instructions .ROUTE .MEDSUPPLY Qty: 1 0RF Rx Instructions: Oxygen conserving device or POC - 3 L/min via nasal cannula with physical activity and at night, DME aero care escitalopram oxalate 10 mg tablet 10 mg PO .COMPLEX Qty: 30 2RF Rx Instructions: 10 mg orally 1/2 pill dony for 8 days then 1 pill a day; torsemide 10 mg tablet 10 mg PO DAILY PRN (Reason: Fluid Retention) calcium carbonate 600 mg calcium (1,500 mg) tablet 600 mg PO DAILY cholecalciferol (vitamin D3) 5,000 unit tablet 5,000 units PO DAILY lansoprazole 15 mg capsule,delayed release(DR/EC) 15 mg PO DAILY multivitamin tablet 1 tab PO DAILY promethazine-codeine 6.25-10 mg/5 mL syrup 0 ml PO Q6H PRN (Reason: Other) Qty: 1 Rx Instructions: DAUGHTER DIDN'T GIVE DOSE aspirin 325 mg Tablet 325 mg PO DAILY Discontinued prednisone 10 mg tablet 10 mg PO DAILY Qty: 30 2RF Rx Instructions: as directed cephalexin 500 mg capsule 500 mg PO QID Qty: 40 0RF Discharge Orders: Discharge Order (Routine); Ordered 08/29/22 Ordered By: Darek Fenton Admission Data Admit Date/Time: 08/25/22 17:34 Attending Provider: Darek Fenton Admit Provider: Vasu Menchaca Primary Care Provider: Ida Jon Other Providers: Vasu Menchaca Other Interventions: Discharge Summary Assessment (RN) Last Done: 08/29/22 12:27 Coding Level of Care Code 66656 INP/OBS DISCH >30 MIN Diagnoses Open wound of lower extremity S81.809A Cryoglobulinemia D89.1 Dyslipidemia E78.5 Polymyalgia rheumatica M35.3 Interstitial lung disease J84.9 PSVT (paroxysmal supraventricular tachycardia) I47.1 Cognitive impairment R41.89 Gastroesophageal reflux disease K21.9 Esophagitis presence: esophagitis presence not specified
== END 2022-08-29 15:30 | disposition home health service (06) | DRG 603 ==
LOC: ED 13:45 → EDINP 13:45 → SUATTDRO 17:34 → OBSVTOIN 17:34 → 3W 22:21

== ENCOUNTER 2022-09-11 14:02 | Inpatient (IN) ==
[2022-09-11] MEDS ORDERED: cefTRIAXone SODIUM 1,000 MG in DEXTROSE 5% AD-VAN 50 ML IV STA (14:35)
[2022-09-11] MEDS ORDERED: VANCOMYCIN HCL 1,250 MG in SODIUM CHLORIDE 0.9% 500 ML IV ONE (14:35)
[2022-09-11] MEDS ORDERED: VANCOMYCIN CONSULT ACTIVE PRN (14:35)
--- NOTE | 2022-09-11 15:15 | XRay Report ---
XR chest 1V portable HISTORY: 82 years-old Female Dyspnea acute shortness of breath COMPARISON: 08/28/2022, chest CT 04/30/2022 TECHNIQUE: AP view of the chest FINDINGS: Cardiac silhouette is enlarged. Pulmonary vascular congestion suggested on a background of chronic in terstitial lung disease. No pneumothorax, pleural effusion or lobar airspace consolidation. Unchanged right hemidiaphragmatic elevation. Pericardial calcifications Bones appear grossly intact. IMPRESSION: 1. Cardiomegaly with pulmonary vascular congestion. 2. Chronic interstitial lung disease. 3. Chronic pericardial calcifications. ACT 112: Negative or not required by law. The above report was generated using voice recognition software. It may contain grammatical, syntax o r spelling errors. Electronically signed by: Jan Beavers M.D. 09/11/2022 3:13 PM
[2022-09-11 15:28] LABS: Basophils # (auto) 0.09 K/uL (0-0.2); Basophils % (auto) 0.6 %; Eosinophils # (auto) 0.66 K/uL (0-0.50); Eosinophils % (auto) 4.3 %; Hematocrit (blood only) 35.6 % (37.0-47.0); Hemoglobin 11.8 g/dl (12.0-16.0); Immature Granulocytes # (auto) 0.06 K/uL (0.01-0.20); Immature Granulocytes % (auto) 0.4 %; Lymphocytes # (auto) 1.18 K/uL (1.2-3.4); Lymphocytes % (auto) 7.6 %; Mean Corpuscular Hemoglobin 30.2 pg (25.0-34.0); Mean Corpuscular Hgb Conc 33.1 g/dL (32.0-36.0); Mean Platelet Volume 8.4 fL (9.4-12.4); Monocytes # (auto) 0.78 K/uL (0.11-0.59); Neutrophils # (auto) 12.74 K/uL (1.40-6.50); Neutrophils % (auto) 82.1 %; Platelet Count 488 K/uL (130-400); RDW Coefficient of Variation 15.7 % (11.5-14.5); RDW Standard Deviation 51.7 fL (36.4-46.3); Red Blood Count 3.91 M/uL (4.20-5.40); White Blood Count 15.51 K/ul (4.8-10.8)
[2022-09-11 15:35] LABS: Albumin Globulin Ratio 0.9 (0.9-2); Albumin Level 3.3 gm/dl (3.4-5.0); BUN Creatinine Ratio 20.6 (10-20); Bilirubin,Total 0.6 mg/dl (0.2-1.0); Calcium 9.1 mg/dl (8.6-10.3); Creatinine Clr Calc Pharmacy 60.2 ml/min; Est GFR (African American) 98.2 ml/min; Est GFR (Non-African American) 84.7 ml/min; Globulin 3.8 gm/dl (2.5-4.0); Magnesium 1.7 mg/dl (1.7-2.4); Total Protein 7.1 gm/dl (6.0-8.3)
[2022-09-11 15:40] LABS: Troponin I High Sensitivity 11.3 pg/ml (0-14)
[2022-09-11 15:50] LABS: Partial Thromboplastin Ratio 0.9; Partial Thromboplastin Time 25.9 Seconds (21.0-31.0)
--- NOTE | 2022-09-11 16:52 | Emergency Department Note ---
Impression & Plan Cellulitis of right lower extremity, Venous stasis ulcer ED Provider Note CHIEF COMPLAINT: Right lower extremity redness and swelling HISTORY OF PRESENT ILLNESS: This 82-year-old female patient with past medical history of paroxysmal supraventricular tachycardia, GERD, dyslipidemia, GI bleed , interstitial lung disease, PMR, lower extremity edema, vasculopathy with ulceration, right greater than left lower extremity presents to the emergency department with complaints of right lower extremity swelling and redness. The patient has 2 ulcerations, one on the cox and 1 on the lateral malleolus that are followed by the wound care clinic. She has home health nursing coming in 2- 3 times a week for dressing changes. Over the last 2 days the nurse advised that the swelling had become much more significant and the skin is hot to touch. She is concerned about the erythema. The patient is currently taking Augmentin through the wound care center, symptoms seem to develop despite this antibiotic. Patient denies any significant drainage or fevers. She does complain of some discomfort in this lower extremity. REVIEW OF SYSTEMS: A review of systems was performed with positives and pertinent negatives listed in the history of present illness. 10 systems were reviewed and are otherwise negative. ALLERGIES: see below MEDICATIONS: see below PMH: see below SOCIAL HISTORY: see below DDx: This patient was evaluated and appeared to be in no significant distress. IV access was obtained and laboratory work was drawn. The patient was placed on the hand cigar maker PHYSICAL EXAM: Vital signs reviewed. General: Well-appearing 82-year-old female, in no significant distress. HEENT: No scleral icterus, PERRLA, neck supple. Atraumatic. Cardiovascular: Regular rate and rhythm, no extra sounds. Pulmonary: Clear to auscultation bilaterally, normal work of breathing. Abdomen: Soft, nontender, nondistended, positive bowel sounds. Musculoskeletal: Atraumatic, 1+ peripheral edema bilaterally. Right lower extremity with ulcerations along the anterior cox and lateral malleolus. Significant erythema tracking from the ankle to the knee, warm to touch. Left significant healing ulceration/wounds on the left leg, no surrounding erythema, no open tissue. Neurologic: Patient awake alert and oriented x 3, speech is clear Skin: Warm, dry, as above EMERGENCY DEPARTMENT COURSE/MDM: This patient was evaluated and appeared to be in no significant distress. IV access was obtained and laboratory work was drawn. The patient was placed on the hand cigar maker and noted to be in a sinus tachycardia. Initially the patient was felt to be tachycardic from infection, she was given a 500 mL bolus of normal saline solution and hydrated at 125 mL/h. Blood cultures were obtained. Patient was given ceftriaxone 2 g IV and IV vancomycin. Heart rate did not change significantly and the patient was asked about her metoprolol. She stated she was concerned that perhaps she had missed this medication at least this morning. She was given 5 mg of IV metoprolol. Case was discussed with the hospitalist service due to the elevated white count tachycardia. Patient and daughter are aware of the plan and agreed. MONITORING: An order for cardiac monitoring was placed and the patient is noted to be in a sinus tachycardia 115 beats per minute. RADIOLOGY: Ultrasounds of the bilateral lower extremity are negative for DVT per radiology. Chest x-ray to my interpretation reveals cardiomegaly with interstitial thickening bilaterally. Otherwise defer to radiology. EKG: To my interpretation reveals a sinus tachycardia at 120 bpm. Diffuse T wave abnormality, QTc is 576. When compared to previous dated August 25, 2022, rate has increased. DISPOSITION: Admission Past Med/Surg History Medical History Cough variant asthma Dyslipidemia Gastroesophageal reflux disease PSVT (paroxysmal supraventricular tachycardia) Vitamin D deficiency Surgical History H/O: hysterectomy History of lung biopsy Hx of biopsy (08/12/22) Family History Father Hypertension Dyslipidemia Cancer Hearing loss Heart disease Mother Dementia Heart disease Daughter Allergies Aunt Stroke Uncle Stroke Denies family history of Ovarian cancer Prostate cancer No family history of adverse response to anesthesia No family history of bleeding disorder Breast cancer Lung cancer Colorectal cancer Asthma Social History Smoking Status: Former smoker Tobacco Type: Cigarettes Age Started Using Tobacco: 21; Age Quit Using Tobacco: 32; packs per day: 0.5; Second Hand Exposure: No; Do You Dip or Chew Tobacco: No; Hx Alcohol Use: Yes Alcohol type: wine Alcohol Intake Frequency: 4 or More x per/Week Alcohol Intake Frequency Comment: glass of wine every night per new patient form. Hx Substance Use: No Preferred Language: Sinhala Communication Ability: Effective Visual Impairment: Limited Hearing Ability: Normal Yacht Master Required: No Beliefs That Will Affect Care: None marital status: Current Living Situation: Alone current occupational status: retired Feels Safe at Home: Yes Safety Concerns: Feels Safe At This Time Childhood Exposure to Second-Hand Smoke: Yes Diet: low salt caffeine: Yes (periodically) Dental Care, Regularly: Yes Physical Activity Frequency: Does not Exercise Seatbelt Use: always Sunscreen Use: Yes Do you think of yourself as: straight/heterosexual Assistive Devices: Oxygen - Continuous Allergies Allergies Allergy/AdvReac Type Severity Reaction Status Date / Time No Known Drug Allergies Allergy Verified 09/09/22 15:05 Home Meds Home Medications Medication Instructions Recorded Confirmed calcium carbonate 600 mg calcium 600 mg PO DAILY 08/29/18 09/11/22 (1,500 mg) tablet cholecalciferol (vitamin D3) 125 5,000 units PO DAILY 08/29/18 09/11/22 mcg (5,000 unit) tablet lansoprazole 15 mg capsule,delayed 15 mg PO DAILY 08/29/18 09/11/22 release multivitamin 1 tab PO DAILY 08/29/18 09/11/22 magnesium chloride 64 mg 64 mg PO DAILY 09/09/18 09/11/22 (magnesium chloride) tablet,delayed release cannabidiol 100 mg/mL oral solution 0 mg PO HS 08/29/19 09/11/22 torsemide 10 mg tablet 10 mg PO DAILY PRN Fluid Retention 07/16/22 09/11/22 aspirin 325 mg tablet 325 mg PO DAILY 08/25/22 09/11/22 benzonatate 200 mg capsule 200 mg PO TID PRN cough 09/09/22 09/11/22 escitalopram oxalate 10 mg tablet 10 mg PO DAILY 09/11/22 09/11/22 montelukast 10 mg tablet 10 mg PO HS 09/11/22 09/11/22 omega 7-kph-suw-fish oil 1,000 mg 1 cap PO DAILY 09/11/22 09/11/22 (120 mg-180 mg) capsule (Fish Oil) potassium citrate 99 mg capsule 99 mg PO Q OTHER DAY 09/11/22 09/11/22 Previous Rx's Medication Instructions Recorded rosuvastatin 10 mg tablet (Crestor) 10 mg PO DAILY #90 tabs 09/04/21 albuterol sulfate 90 mcg/actuation 2 puff inhalation Q4H PRN 04/10/22 aerosol inhaler shortness of breath or wheezing #18 grams conjugated estrogens 0.3 mg tablet 0.3 mg PO DAILY #160 tabs 06/23/22 metoprolol succinate 25 mg 25 mg PO DAILY #90 tabs 07/07/22 tablet,extended release 24 hr Oxygen Home #1 ea 08/05/22 amoxicillin 875 mg-potassium 1 tab PO BID #14 tabs 09/07/22 clavulanate 125 mg tablet Results & Data (ED) Vital Signs Vital Signs - 24 hr 09/11/22 14:04 09/11/22 14:22 09/11/22 14:22 Temperature 36.9 C 37.0 C Temperature Source Oral Oral Pulse Rate 130 H Pulse Rate [Right Finger] 121 H Pulse Rhythm Pulse Rhythm [Right Finger] Regular Pulse Strength [Right Finger] Normal Respiratory Rate 20 24 Respiratory Effort / Characteristics Non-Labored Spontaneous Non-Labored Spontaneous Respiratory Depth Normal Shallow Respiratory Pattern Tachypnea Blood Pressure 102/61 Blood Pressure [Right Arm] 119/60 Blood Pressure Mean 74 Blood Pressure Mean [Right Arm] 79 Blood Pressure Position [Right Arm] Pulse Oximetry 91 97 Oxygen Delivery Method Nasal Cannula Nasal Cannula Nasal Cannula Oxygen Flow Rate 3 5 5 Sepsis Recent Fever Within 48 Hours No Sepsis New/Unexplained Change in Mental Status N/A Sepsis Action Taken by Nursing No Action Required 09/11/22 14:24 09/11/22 14:52 09/11/22 16:19 Temperature 37 C Temperature Source Oral Pulse Rate 120 H 115 H Pulse Rate [Right Finger] 115 H Pulse Rhythm Regular Pulse Rhythm [Right Finger] Regular Pulse Strength [Right Finger] Normal Respiratory Rate 22 20 Respiratory Effort / Characteristics Non-Labored Spontaneous Respiratory Depth Normal Respiratory Pattern Regular Blood Pressure Blood Pressure [Right Arm] 104/54 L Blood Pressure Mean Blood Pressure Mean [Right Arm] 70 Blood Pressure Position [Right Arm] Lying Pulse Oximetry 98 95 Oxygen Delivery Method Nasal Cannula Nasal Cannula Oxygen Flow Rate 5 4 Sepsis Recent Fever Within 48 Hours Sepsis New/Unexplained Change in Mental Status Sepsis Action Taken by Nursing Laboratory Data Attestation: I reviewed the patient's lab results. 09/11/22 14:52 09/11/22 14:52 Lab Results 09/11/22 09/11/22 09/11/22 Range/Units 14:52 14:52 14:52 WBC 15.51 H (4.8-10.8) K/ul RBC 3.91 L (4.20-5.40) M/uL Hgb 11.8 L (12.0-16.0) g/dl Hct 35.6 L (37.0-47.0) % MCV 91.0 (80.0-100.0) fL MCH 30.2 (25.0-34.0) pg MCHC 33.1 (32.0-36.0) g/dL RDW Std Deviation 51.7 H (36.4-46.3) fL RDW Coeff of Viktor 15.7 H (11.5-14.5) % Plt Count 488 H (130-400) K/uL MPV 8.4 L (9.4-12.4) fL Immature Gran % (Auto) 0.4 % Neut % (Auto) 82.1 % Lymph % (Auto) 7.6 % [place] % (Auto) 5.0 % Eos % (Auto) 4.3 % Baso % (Auto) 0.6 % Neut # (Auto) 12.74 H (1.40-6.50) K/uL Lymph # (Auto) 1.18 L (1.2-3.4) K/uL [place] # (Auto) 0.78 H (0.11-0.59) K/uL Eos # (Auto) 0.66 H (0-0.50) K/uL Baso # (Auto) 0.09 (0-0.2) K/uL Immature Gran # (Auto) 0.06 (0.01-0.20) K/uL PT 11.0 (9.0-12.0) Seconds INR 1.0 (0.9-1.1) APTT 25.9 (21.0-31.0) Seconds PTT Ratio 0.9 Sodium 133 L (136-145) mmol/L Potassium 4.0 (3.5-5.1) mmol/L Chloride 102 (98-107) mmol/L Carbon Dioxide 23 (21-32) mmol/L Anion Gap 8 (3-11) BUN 13 (6-23) mg/dl Creatinine 0.63 (0.6-1.2) mg/dl Est Cr Clr Drug Dosing 60.2 ml/min Est GFR ( Amer) 98.2 ml/min Est GFR (Non-Af Amer) 84.7 ml/min BUN/Creatinine Ratio 20.6 H (10-20) Glucose 93 (70-99(Fasting)) mg/dl Lactate (0.4-2.0) mmol/L Calcium 9.1 (8.6-10.3) mg/dl Phosphorus 3.3 (2.5-4.9) mg/dl Magnesium 1.7 (1.7-2.4) mg/dl Total Bilirubin 0.6 (0.2-1.0) mg/dl AST 12 L (13-39) U/L ALT 6 L (7-52) U/L Alkaline Phosphatase 79 (34-104) U/L Troponin I High Sens 11.3 (0-14) pg/ml Total Protein 7.1 (6.0-8.3) gm/dl Albumin 3.3 L (3.4-5.0) gm/dl Globulin 3.8 (2.5-4.0) gm/dl Albumin/Globulin Ratio 0.9 (0.9-2) SARS-CoV-2, RNA, NAAT (NEGATIVE) 09/11/22 09/11/22 Range/Units 16:00 17:58 WBC (4.8-10.8) K/ul RBC (4.20-5.40) M/uL Hgb (12.0-16.0) g/dl Hct (37.0-47.0) % MCV (80.0-100.0) fL MCH (25.0-34.0) pg MCHC (32.0-36.0) g/dL RDW Std Deviation (36.4-46.3) fL RDW Coeff of Viktor (11.5-14.5) % Plt Count (130-400) K/uL MPV (9.4-12.4) fL Immature Gran % (Auto) % Neut % (Auto) % Lymph % (Auto) % [place] % (Auto) % Eos % (Auto) % Baso % (Auto) % Neut # (Auto) (1.40-6.50) K/uL Lymph # (Auto) (1.2-3.4) K/uL [place] # (Auto) (0.11-0.59) K/uL Eos # (Auto) (0-0.50) K/uL Baso # (Auto) (0-0.2) K/uL Immature Gran # (Auto) (0.01-0.20) K/uL PT (9.0-12.0) Seconds INR (0.9-1.1) APTT (21.0-31.0) Seconds PTT Ratio Sodium (136-145) mmol/L Potassium (3.5-5.1) mmol/L Chloride (98-107) mmol/L Carbon Dioxide (21-32) mmol/L Anion Gap (3-11) BUN (6-23) mg/dl Creatinine (0.6-1.2) mg/dl Est Cr Clr Drug Dosing ml/min Est GFR ( Amer) ml/min Est GFR (Non-Af Amer) ml/min BUN/Creatinine Ratio (10-20) Glucose (70-99(Fasting)) mg/dl Lactate 1.0 (0.4-2.0) mmol/L Calcium (8.6-10.3) mg/dl Phosphorus (2.5-4.9) mg/dl Magnesium (1.7-2.4) mg/dl Total Bilirubin (0.2-1.0) mg/dl AST (13-39) U/L ALT (7-52) U/L Alkaline Phosphatase (34-104) U/L Troponin I High Sens (0-14) pg/ml Total Protein (6.0-8.3) gm/dl Albumin (3.4-5.0) gm/dl Globulin (2.5-4.0) gm/dl Albumin/Globulin Ratio (0.9-2) SARS-CoV-2, RNA, NAAT NEGATIVE (NEGATIVE) Administered Medications Aspirin (Aspirin 325 Mg Ectab) 325 mg PO DAILY RAYNA Stop: 10/12/22 08:59 Last Admin: 09/14/22 07:38 Dose: 325 mg Documented By: Admin: 09/13/22 08:06 Dose: 325 mg Documented By: Admin: 09/12/22 07:43 Dose: 325 mg Documented By: HARRIET Benzonatate (Benzonatate 100 Mg Capsule) 200 mg PO TID PRN PRN Reason: cough Stop: 10/11/22 20:31 Last Admin: 09/14/22 21:08 Dose: 200 mg Documented By: Admin: 09/14/22 07:36 Dose: 200 mg Documented By: Admin: 09/13/22 20:25 Dose: 200 mg Documented By: LUIS E Doxycycline Hyclate (Doxycycline Hyclate 100 Mg Cap) 100 mg PO BID RAYNA Stop: 09/21/22 12:59 Last Admin: 09/14/22 21:08 Dose: 100 mg Documented By: Admin: 09/14/22 12:35 Dose: 100 mg Documented By: WILBER Escitalopram Oxalate (Escitalopram Oxalate 10 Mg Tab) 10 mg PO DAILY RAYNA Stop: 10/12/22 08:59 Last Admin: 09/14/22 07:37 Dose: 10 mg Documented By: Admin: 09/13/22 08:06 Dose: 10 mg Documented By: Admin: 09/12/22 07:43 Dose: 10 mg Documented By: HARRIET Fish Oil ([place]-3 (Purified Fish Oil) 1 Gm Cap) 1 gm PO DAILY RAYNA Stop: 10/12/22 08:59 Last Admin: 09/14/22 07:38 Dose: 1 gm Documented By: Admin: 09/13/22 08:06 Dose: 1 gm Documented By: Admin: 09/12/22 07:42 Dose: 1 gm Documented By: HARRIET Guaifenesin (Guaifenesin 600 Mg Tabcr) 600 mg PO Q12H PRN PRN Reason: Cough Stop: 10/13/22 09:44 Last Admin: 09/14/22 21:08 Dose: 600 mg Documented By: Admin: 09/14/22 07:37 Dose: 600 mg Documented By: Admin: 09/13/22 10:59 Dose: 600 mg Documented By: JACOB Lansoprazole (Lansoprazole 15 Mg Soltab) 15 mg PO DAILY RAYNA Stop: 10/12/22 08:59 Last Admin: 09/14/22 08:46 Dose: 15 mg Documented By: Admin: 09/13/22 08:07 Dose: 15 mg Documented By: Admin: 09/12/22 07:42 Dose: 15 mg Documented By: HARRIET Melatonin (Melatonin 3 Mg Tab) 3 mg PO HS RAYNA Stop: 10/12/22 20:59 Last Admin: 09/14/22 21:08 Dose: 3 mg Documented By: Admin: 09/13/22 20:25 Dose: 3 mg Documented By: LUIS E Admin: 09/12/22 20:14 Dose: 3 mg Documented By: DIANELYS Metoprolol Succinate (Metoprolol Succ 25mg Ext Rel Tab) 25 mg PO DAILY RAYNA Stop: 10/12/22 08:59 Last Admin: 09/14/22 07:37 Dose: 25 mg Documented By: Admin: 09/13/22 08:07 Dose: 25 mg Documented By: Admin: 09/12/22 07:42 Dose: 25 mg Documented By: HARRIET Montelukast Sodium (Montelukast Sodium 10 Mg Tablet) 10 mg PO HS RAYNA Stop: 10/11/22 20:59 Last Admin: 09/14/22 21:08 Dose: 10 mg Documented By: Admin: 09/13/22 20:25 Dose: 10 mg Documented By: LUIS E Admin: 09/12/22 20:14 Dose: 10 mg Documented By: Admin: 09/11/22 22:12 Dose: 10 mg Documented By: DIANELYS Multivitamins (Multivitamin Tab) 1 tab PO DAILY RAYNA Stop: 10/12/22 08:59 Last Admin: 09/14/22 07:37 Dose: 1 tab Documented By: Admin: 09/13/22 08:06 Dose: 1 tab Documented By: Admin: 09/12/22 07:42 Dose: 1 tab Documented By: HARRIET Rosuvastatin Calcium (Rosuvastatin Calcium 10 Mg Tab) 10 mg PO DAILY RAYNA Stop: 10/12/22 08:59 Last Admin: 09/14/22 08:46 Dose: 10 mg Documented By: Admin: 09/13/22 08:07 Dose: 10 mg Documented By: Admin: 09/12/22 07:41 Dose: 10 mg Documented By: HARRIET Vitamin D (Cholecalciferol 5,000 Units 125 Mcg Tab) 5,000 units PO DAILY RAYNA Stop: 10/12/22 08:59 Last Admin: 09/14/22 07:37 Dose: 5,000 units Documented By: Admin: 09/13/22 08:07 Dose: 5,000 units Documented By: Admin: 09/12/22 07:43 Dose: 5,000 units Documented By: HARRIET Discontinued Medications Calcium Carbonate (Calcium Carbonate 1250mg Tab) 1,250 mg PO DAILY RAYNA Stop: 10/12/22 08:59 Last Admin: 09/14/22 07:38 Dose: 1,250 mg Documented By: Admin: 09/13/22 08:06 Dose: 1,250 mg Documented By: Admin: 09/12/22 07:43 Dose: 1,250 mg Documented By: HARRIET Estrogens Conjugated (Estrogens, Conjugated 0.3 Mg Tab) 0.3 mg PO ONE ONE Stop: 09/11/22 21:16 Last Admin: 09/11/22 22:12 Dose: 0.3 mg Documented By: DIANELYS Ceftriaxone Sodium 1,000 mg/ (Dextrose) 50 mls @ 100 mls/hr IV NOW STA Stop: 09/11/22 15:04 Last Infusion: 09/11/22 15:54 Dose: 0 mls/hr Documented By: Admin: 09/11/22 15:15 Dose: 100 mls/hr Documented By: JAMEL Vancomycin HCl 1,250 mg/ (Sodium Chloride) 525 mls @ 200 mls/hr IV NOW ONE Stop: 09/11/22 17:12 Last Admin: 09/11/22 15:54 Dose: 200 mls/hr Documented By: JAMEL Sodium Chloride (Nss) 500 mls @ 999 mls/hr IV .Q31M ONE Stop: 09/11/22 18:19 Last Infusion: 09/11/22 20:37 Dose: 0 mls/hr Documented By: Admin: 09/11/22 18:33 Dose: 999 mls/hr Documented By: LIEN Sodium Chloride (Nss 1000ml) 1,000 mls @ 125 mls/hr IV .Q8H RAYNA Stop: 10/11/22 17:59 Last Admin: 09/11/22 20:36 Dose: Not Given Documented By: DIANELYS Ceftriaxone Sodium 2,000 mg/ (Dextrose) 70 mls @ 100 mls/hr IV Q24H RAYNA; Protocol Stop: 09/18/22 20:59 Last Infusion: 09/13/22 21:09 Dose: 0 mls/hr Documented By: LUIS E Admin: 09/13/22 20:24 Dose: 100 mls/hr Documented By: LUIS E Infusion: 09/12/22 21:23 Dose: 0 mls/hr Documented By: Admin: 09/12/22 20:14 Dose: 100 mls/hr Documented By: Infusion: 09/11/22 23:11 Dose: 0 mls/hr Documented By: Admin: 09/11/22 22:12 Dose: 100 mls/hr Documented By: DIANELYS Vancomycin HCl 750 mg/ Sodium (Chloride) 265 mls @ 200 mls/hr IV Q12H RAYNA Stop: 09/19/22 00:00 Last Infusion: 09/13/22 01:42 Dose: 0 mls/hr Documented By: Admin: 09/13/22 00:22 Dose: 200 mls/hr Documented By: Infusion: 09/12/22 13:37 Dose: 0 mls/hr Documented By: Admin: 09/12/22 11:41 Dose: 200 mls/hr Documented By: Infusion: 09/12/22 00:26 Dose: 0 mls/hr Documented By: Admin: 09/11/22 22:49 Dose: 200 mls/hr Documented By: DIANELYS Magnesium Sulfate/Dextrose (Magnesium Sulfate / D5w) 1 gm in 100 mls @ 50 mls/hr IV Q2H RAYNA Stop: 09/12/22 11:14 Last Infusion: 09/12/22 10:52 Dose: 0 mls/hr Documented By: Admin: 09/12/22 07:33 Dose: 50 mls/hr Documented By: Infusion: 09/12/22 07:33 Dose: 50 mls/hr Documented By: Admin: 09/12/22 07:33 Dose: 50 mls/hr Documented By: HARRIET Vancomycin HCl 1,000 mg/ (Sodium Chloride) 270 mls @ 200 mls/hr IV Q12H RAYNA Stop: 09/19/22 00:00 Last Infusion: 09/14/22 02:14 Dose: 0 mls/hr Documented By: LUIS E Admin: 09/14/22 00:45 Dose: 200 mls/hr Documented By: LUIS E Infusion: 09/13/22 13:42 Dose: 0 mls/hr Documented By: Admin: 09/13/22 12:21 Dose: 200 mls/hr Documented By: JACOB Magnesium Sulfate/Dextrose (Magnesium Sulfate / D5w) 1 gm in 100 mls @ 50 ml s/hr IV Q2H RAYNA Stop: 09/14/22 16:59 Last Infusion: 09/14/22 18:19 Dose: 0 mls/hr Documented By: Admin: 09/14/22 16:19 Dose: 50 mls/hr Documented By: Infusion: 09/14/22 16:19 Dose: 50 mls/hr Documented By: Admin: 09/14/22 14:19 Dose: 50 mls/hr Documented By: WILBER Magnesium Chloride (Magnesium Chloride W/Calcium 64mg Delayed Rel Tab) 64 mg PO DAILY RAYNA Stop: 10/12/22 08:59 Last Admin: 09/14/22 07:37 Dose: 64 mg Documented By: Admin: 09/13/22 08:06 Dose: 64 mg Documented By: Admin: 09/12/22 07:42 Dose: 64 mg Documented By: HARRIET Metoprolol Tartrate (Metoprolol Tartrate 1 Mg/Ml Vial) 5 mg IV NOW STA Stop: 09/11/22 19:15 Last Admin: 09/11/22 19:56 Dose: 5 mg Documented By: MARTINE Miscellaneous (Cannabidiol~Order Awaiting Action) 1 each N/A QS RAYNA Stop: 10/11/22 21:14 Last Admin: 09/14/22 07:11 Dose: Not Given Documented By: Admin: 09/14/22 00:20 Dose: Not Given Documented By: LUIS E Admin: 09/13/22 16:02 Dose: Not Given Documented By: Admin: 09/13/22 08:03 Dose: Not Given Documented By: Admin: 09/13/22 00:21 Dose: Not Given Documented By: Admin: 09/12/22 16:24 Dose: Not Given Documented By: Admin: 09/12/22 07:33 Dose: Not Given Documented By: Admin: 09/12/22 00:04 Dose: Not Given Documented By: Admin: 09/11/22 22:21 Dose: Not Given Documented By: DIANELYS Potassium Chloride (Potassium Chloride Crtab 20 Meq Tabcr) 20 meq PO NOW STA Stop: 09/13/22 10:08 Last Admin: 09/13/22 10:22 Dose: 20 meq Documented By: JACOB Torsemide (Torsemide 10 Mg Tab) 10 mg PO NOW ONE Stop: 09/12/22 15:44 Last Admin: 09/12/22 16:23 Dose: 10 mg Documented By: HARRIET Imaging Data Radiologist's Impression: Chest X-Ray 09/11/22 14:33 XR chest 1V portable HISTORY: 82 years-old Female Dyspnea acute shortness of breath COMPARISON: 08/28/2022, chest CT 04/30/2022 TECHNIQUE: AP view of the chest FINDINGS: Cardiac silhouette is enlarged. Pulmonary vascular congestion suggested on a background of chronic interstitial lung disease. No pneumothorax, pleural effusion or lobar airspace consolidation. Unchanged right hemidiaphragmatic e levation. Pericardial calcifications Bones appear grossly intact. IMPRESSION: 1. Cardiomegaly with pulmonary vascular congestion. 2. Chronic interstitial lung disease. 3. Chronic pericardial calcifications. ACT 112: Negative or not required by law. The above report was generated using voice recognition software. It may contain grammatical, syntax or spelling errors. Electronically signed by: Jan Beavers M.D. 09/11/2022 3:13 PM Discharge Plan Visit Data Chief Complaint: Shortness of Breath/Dyspnea Stated Complaint: EDEMA TO LEGS, SOB, REF BY DOC. ED Provider: Sharmin George Discharge Problem: Cellulitis of right lower extremity, Venous stasis ulcer Patient Disposition: Admitted As Inpatient Discharge Instructions Interventions: ED Discharge Assessment Last Done: 09/11/22 20:17 Venous stasis ulcer Qualifiers: Venous stasis ulcer site: other part of lower leg Varicose vein presence: unspecified whether present Laterality: right Non-pressure ulcer stage: with fat layer exposed Qualified Code(s): I83.018 - Varicose veins of right lower extremity with ulcer other part of lower leg
[2022-09-11] MEDS ORDERED: SODIUM CHLORIDE 0.9% 500 ML IV ONE (17:49)
[2022-09-11] MEDS ORDERED: SODIUM CHLORIDE 0.9% 1000ML 1,000 ML IV SCH (18:00)
--- NOTE | 2022-09-11 18:29 | Ultrasound Report ---
BILATERAL LOWER EXTREMITY VENOUS DOPPLER HISTORY: Acute pain and swelling of the right lower leg DVT COMPARISON STUDY: 08/25/2022 FINDINGS: There is normal compressibility, flow, and augmentation within the bilateral lower extremit y deep venous systems. Subcutaneous edema. IMPRESSION: No DVT within the right or left lower extremity. ACT 112: Negative or not required by law. Electronically signed by: Jan Beavers M.D. 09/11/2022 6:28 PM
[2022-09-11] MEDS ORDERED: METOPROLOL TARTRATE 1 MG/ML VIAL IV STA (19:14)
[2022-09-11] MEDS ORDERED: MELATONIN 3 MG TAB PO PRN (20:32)
[2022-09-11] MEDS ORDERED: TORSEMIDE 10 MG TAB PO PRN (20:32)
[2022-09-11] MEDS ORDERED: NON-FORMULARY MEDICATION (Potassium Citrate 99 mg Capsule) PO SCH (20:32)
--- NOTE | 2022-09-11 20:33 | History & Physical Report ---
Date of Service September 11, 2022 Assessment & Plan (1) Cellulitis of right lower leg: Plan: 82 F with PMH PSVT, dyslipidemia, GERD, ILD who presented to emergency room with RLE cellulitis unresponsive to Augmentin. Now admitted for management of cellulitis. RLE cellulitis -Followed by wound clinic. Latest infection unresponsive to Augmentin as above. -WBC 15.51. Otherwise afebrile, hemodynamically stable. -S/p IV vancomycin, IV ceftriaxone in ED. Blood culture results pending. * IV antibiotics: Vancomycin, IV ceftriaxone 2 g daily * Trend WBC on CBC. * Narrow antibiotic regimen once blood culture results finalized. Paroxysmal supraventricular tachycardia -Chronic. Managed on home regimen of Toprol 25 mg daily. * Continue as at home GERD -Chronic. Managed on home regimen of lansoprazole 15 mg daily * Continue home regimen Cough variant asthma/interstitial lung disease -Chronic. Follows Dr. Yong Thurston of [facility] [place]. Managed with as needed albuterol inhaler, as needed benzonatate, nightly Singulair. -Also on home oxygen 3 L via nasal cannula. * Montelukast 10 mg p.o. at bedtime * Albuterol inhaler as needed, benzonatate 200 mg as needed 3 times daily * O2 supplementation via nasal cannula per home regimen Vitamin D deficiency -Chronic. Managed at home on vitamin D3 5000 units daily, calcium carbonate 600 mg daily * Continue home regimen Dyslipidemia -Chronic. Managed at home with omega-3 fish oil, rosuvastatin 10 mg * Rosuvastatin 10 mg daily * Fish oil 1 capsule daily Varicose veins of lower extremity -Chronic. Managed at home on torsemide 10 mg tablet as needed for fluid retention. 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 Ulcer is known to her, and she follows with the wound clinic. She had been prescribed Augmentin on Wednesday for the ulcer but her home health nurse told her on Wednesday that the swelling had actually continued to worsen despite the antibiotics. She came in today as she was concerned about the erythema, and is complaining of some discomfort. In the ED, labs are notable for WBC-15.51. Lactate was 1.0. Other than slight hyponatremia (133), metabolic panel was mostly wnl. She received IV ceftriaxone 1 g, IV vancomycin 1250 mg, 1 L NS bolus, and maintenance NS x1 L. Hospitalist was then consulted for admission. On admission, she as well as daughter, Yvette, who is present at bedside, corroborates HPI. She currently denies pain, as well as fever, chills, drainage, or foul odor. Allergies Allergy/AdvReac Type Severity Reaction Status Date / Time No Known Drug Allergies Allergy Verified 09/09/22 15:05 Home Medications Medication Instructions Recorded Confirmed Type calcium carbonate 600 mg calcium 600 mg PO DAILY 08/29/18 09/11/22 History (1,500 mg) tablet cholecalciferol (vitamin D3) 125 5,000 units PO DAILY 08/29/18 09/11/22 History mcg (5,000 unit) tablet lansoprazole 15 mg capsule,delayed 15 mg PO DAILY 08/29/18 09/11/22 History release multivitamin 1 tab PO DAILY 08/29/18 09/11/22 History magnesium chloride 64 mg 64 mg PO DAILY 09/09/18 09/11/22 History (magnesium chloride) tablet,delayed release cannabidiol 100 mg/mL oral solution 0 mg PO HS 08/29/19 09/11/22 History rosuvastatin 10 mg tablet (Crestor) 10 mg PO DAILY #90 tabs 09/04/21 09/11/22 Rx albuterol sulfate 90 mcg/actuation 2 puff inhalation Q4H PRN 04/10/22 09/11/22 Rx aerosol inhaler shortness of breath or wheezing #18 grams conjugated estrogens 0.3 mg tablet 0.3 mg PO DAILY #160 tabs 06/23/22 09/11/22 Rx metoprolol succinate 25 mg 25 mg PO DAILY #90 tabs 07/07/22 09/11/22 Rx tablet,extended release 24 hr torsemide 10 mg tablet 10 mg PO DAILY PRN Fluid Retention 07/16/22 09/11/22 History Oxygen Home #1 ea 08/05/22 09/11/22 Rx aspirin 325 mg tablet 325 mg PO DAILY 08/25/22 09/11/22 History amoxicillin 875 mg-potassium 1 tab PO BID #14 tabs 09/07/22 09/11/22 Rx clavulanate 125 mg tablet benzonatate 200 mg capsule 200 mg PO TID PRN cough 09/09/22 09/11/22 History escitalopram oxalate 10 mg tablet 10 mg PO DAILY 09/11/22 09/11/22 History montelukast 10 mg tablet 10 mg PO HS 09/11/22 09/11/22 History omega 1-ypu-tof-fish oil 1,000 mg 1 cap PO DAILY 09/11/22 09/11/22 History (120 mg-180 mg) capsule (Fish Oil) potassium citrate 99 mg capsule 99 mg PO Q OTHER DAY 09/11/22 09/11/22 History Past Med/Surg History Medical History Cough variant asthma Dyslipidemia Gastroesophageal reflux disease PSVT (paroxysmal supraventricular tachycardia) Vitamin D deficiency Surgical History H/O: hysterectomy History of lung biopsy Hx of biopsy (08/12/22) Family History Father Hypertension Dyslipidemia Cancer Hearing loss Heart disease Mother Dementia Heart disease Daughter Allergies Aunt Stroke Uncle Stroke Denies family history of Ovarian cancer Prostate cancer No family history of adverse response to anesthesia No family history of bleeding disorder Breast cancer Lung cancer Colorectal cancer Asthma Social History Smoking Status: Former smoker Tobacco Type: Cigarettes Age Started Using Tobacco: 21; Age Quit Using Tobacco: 32; packs per day: 0.5; Second Hand Exposure: No; Do You Dip or Chew Tobacco: No; Hx Alcohol Use: Yes Alcohol type: wine Alcohol Intake Frequency: 4 or More x per/Week Alcohol Intake Frequency Comment: glass of wine every night per new patient form. Hx Substance Use: No Preferred Language: Urdu Communication Ability: Effective Visual Impairment: Limited Hearing Ability: Normal Stummel Selector Required: No Beliefs That Will Affect Care: None marital status: Current Living Situation: Alone current occupational status: retired Feels Safe at Home: Yes Safety Concerns: Feels Safe At This Time Childhood Exposure to Second-Hand Smoke: Yes Diet: low salt caffeine: Yes (periodically) Dental Care, Regularly: Yes Physical Activity Frequency: Does not Exercise Seatbelt Use: always Sunscreen Use: Yes Do you think of yourself as: straight/heterosexual Assistive Devices: Glasses and Oxygen - Continuous Review of Systems Review of Systems: All systems reviewed & are unremarkable except as noted in HPI & below Physical Exam Physical Exam: General: No acute distress HEENT: PERRLA. Normal conjunctiva, anicteric sclera. Oropharynx normal. Respiratory: Normal respiratory effort, mild bibasilar crackles heard on auscultation. Cardiovascular: RRR without murmurs, gallops, or rubs. No pedal edema. GI: Soft, nondistended abdomen. Nontender x4 quadrants Skin: On lateral right LE, 4 ulcers at various stages of healing. Of those, 2 open ulcers with central granulation tissue present. No purulence or fluctuance noted. Neuro: Alert and oriented x3. Results & Data Results & Data Vital Signs (Past 12 Hours) Vital Signs Temp Pulse Pulse Resp BP BP Pulse Ox 09/11/22 20:17 09/11/22 20:01 103 H 09/11/22 19:56 111 H 113/72 09/11/22 19:00 119 H 25 H 116/73 95 09/11/22 16:00 118 H 25 H 104/68 95 09/11/22 16:19 37 C 115 H 20 104/54 L 95 09/11/22 14:52 115 H 22 98 09/11/22 14:24 120 H 09/11/22 14:22 37.0 C 121 H 24 119/60 97 09/11/22 14:22 09/11/22 14:04 36.9 C 130 H 20 102/61 91 O2 Del Method O2 Flow Rate 09/11/22 20:17 Nasal Cannula 4 09/11/22 20:01 09/11/22 19:56 09/11/22 19:00 Nasal Cannula 4 09/11/22 16:00 Nasal Cannula 4 09/11/22 16:19 Nasal Cannula 4 09/11/22 14:52 Nasal Cannula 5 09/11/22 14:24 09/11/22 14:22 Nasal Cannula 5 09/11/22 14:22 Nasal Cannula 5 09/11/22 14:04 Nasal Cannula 3 Supervising Physician Co-Signing Physician Notes Patient seen and examined, chart reviewed, case discussed with Dr. Benjamin and I agree with the assessment and plan as above except as otherwise noted Labs and images reviewed History of ILD, PMR, SVT, GERD, lower extremity ulcer follows with wound clinic which had had increasing swelling and erythema despite outpatient Augmentin. Has a leukocytosis, lactic was not elevated, and feels tired with increased discomfort in the right lower extremity. Seen at the bedside after transition to the floor, right lower extremity on exam is with surrounding erythema and draining ulceration. No DVT is noted on Doppler. Agree with treatment as cellulitis, will admit on Vanco/Rocephin and follow cultures. 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
[2022-09-11] MEDS ORDERED: ESTROGENS, CONJUGATED 0.3 MG TAB PO ONE (21:15)
[2022-09-11 21:48] LABS: Phosphorus 3.3 mg/dl (2.5-4.9)
[2022-09-11] MEDS: MONTELUKAST SODIUM 10 MG TABLET PO SCH (22:12)
[2022-09-11] MEDS: cefTRIAXone SODIUM 2,000 MG in DEXTROSE 5% 50 ML IV SCH (22:12)
[2022-09-11] MEDS: VANCOMYCIN HCL 750 MG in SODIUM CHLORIDE 0.9% 250 ML IV SCH (22:49)
--- NOTE | 2022-09-12 01:53 | Billing Data ---
Date of Service September 12, 2022 Coding Level of Care Code 64421 INT INP/OBS CARE
[2022-09-12 06:14] LABS: Hematocrit (blood only) 33.5 % (37.0-47.0); Hemoglobin 10.9 g/dl (12.0-16.0); Mean Corpuscular Hemoglobin 30.2 pg (25.0-34.0); Mean Corpuscular Hgb Conc 32.5 g/dL (32.0-36.0); Mean Corpuscular Volume 92.8 fL (80.0-100.0); Mean Platelet Volume 8.2 fL (9.4-12.4); Platelet Count 444 K/uL (130-400); RDW Coefficient of Variation 15.4 % (11.5-14.5); RDW Standard Deviation 52.6 fL (36.4-46.3); Red Blood Count 3.61 M/uL (4.20-5.40); White Blood Count 14.48 K/ul (4.8-10.8)
[2022-09-12 06:25] LABS: BUN Creatinine Ratio 18.2 (10-20); Calcium 8.4 mg/dl (8.6-10.3); Est GFR (African American) 102.7 ml/min; Est GFR (Non-African American) 88.6 ml/min; Magnesium 1.6 mg/dl (1.7-2.4); Phosphorus 3.1 mg/dl (2.5-4.9); Potassium 3.9 mmol/L (3.5-5.1)
--- NOTE | 2022-09-12 07:14 | Hospitalist Progress Note ---
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 Now admitted for management of cellulitis. RLE cellulitis Patient with extensive history with RLE ulcers and cellulitis. She began outpatient treatment in July. First course of abx 07/30 as there was concern for superimposed infection. Cellulitis improved and then acutely worsened. She was started on 10 days of Keflex on 08/19. She was then seen in the [facility] ED and was admitted for cellulitis. Wound cultures grew pansensitive staph lugdunensis. She was sent home with Keflex to finish the course of abx. Symptoms initially improved and then worsened again. She was restarted on Augmentin around 09/07. Symptoms continued to worsen so she represented to the ED and was admitted for IV abx. Patient currently on ceftriaxone and zosyn. Awaiting wound cultures. Patient does have a PMHx of polymyalgia rheumatica and has been treated with steroids in the past. She was to taper off of steroids after her last hospitalization. No longer on her home med list. WBC 15.51. Otherwise afebrile, hemodynamically stable. * IV antibiotics: Vancomycin, IV ceftriaxone 2 g daily * Trend WBC on CBC. * Narrow antibiotic regimen once blood culture results finalized. 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 Patient with skin biopsy consistent with livedoid vasculopathy. Likely contributing to delayed healing and recurrent cellulitis. Will treat acute cellulitis. Does follow with Rheumatology outpatient, Dr. Gooden, who is managing. Patient is to be seen by hematology to r/o underlying hematologic etiology. If they are amenable Dr. Gooden is considering trailing Rituximab. Paroxysmal supraventricular tachycardia Chronic. Managed on home regimen of Toprol 25 mg daily. * Continue as at home GERD Chronic. Managed on home regimen of lansoprazole 15 mg daily * Continue home regimen Cough variant asthma/interstitial lung disease Chronic. Follows Dr. Yong Thurston of [facility] [place] pulmonology. Managed with as needed albuterol inhaler, as needed benzonatate, nightly Singulair. Also on home oxygen 3 L via nasal cannula. * Montelukast 10 mg p.o. at bedtime * Albuterol inhaler as needed, benzonatate 200 mg as needed 3 times daily * O2 supplementation via nasal cannula per home regimen Vitamin D deficiency -Chronic. Managed at home on vitamin D3 5000 units daily, calcium carbonate 600 mg daily * Continue home regimen Dyslipidemia -Chronic. Managed at home with omega-3 fish oil, rosuvastatin 10 mg * Rosuvastatin 10 mg daily * Fish oil 1 capsule daily Varicose veins of lower extremity -Chronic. Managed at home on torsemide 10 mg tablet as needed for fluid retention. 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 I agree w/ the arvizu components of her documentation. Pt denies RLE pain. Denies dyspnea at rest. Appetite intact. NC O2 requirement at baseline (3 L). Daughter and son at bedside. Daughter with multiple questions and concerns including her mental status, breathing, concern about ultimate discharge to home, etc. VSS, tachy at times, afebrile gen - NAD, mild pleasant confusion noted neck - no JVD heart - RRR, s1 s2, 2/6 systolic murmur LSB lungs - diffuse b/l fine/dry rales bases, no increased work of breathing abd - soft NT ND BS+ ext - trace-1+ edema RLE, trace edema LLE; minimal pink erythema distal right cox; multiple ulcerations with central necrotic/black material; no drainage; background of stasis changes b/l shins psych - a/o but mild confusion noted labs reviewed mag 1.6 wound cx pending blood cx's neg to date A/P: 1. RLE cellulitis - improved; cont rocephin/vanco, await culture. 2. multiple RLE wounds - 2nd to livedoid vasculopathy/vasculitis. Local wound care. 3. positive p-ANCA. 4. positive cryoglobulins. 5. h/o PMR previously on chronic steroids - these have been fully weaned off. 6. chronic resp failure on home O2 3 L. 7. ?acute/chronic diastolic CHF - torsemide x 1 today. PT/OT evals needed Miguel Rangel MD Subjective Patient seen at bedside. Doing well. No complaints. No f/c/SOB/CP. Wound without pain or worsening Patient on 3L NC at baseline Physical Exam Physical Exam: General: No acute distress HEENT: PERRLA. Normal conjunctiva, anicteric sclera. Respiratory: Normal respiratory effort, mild bibasilar crackles heard on auscultation. Cardiovascular: RRR without murmurs, gallops, or rubs. No pedal edema. GI: Soft, nondistended abdomen. Nontender x4 quadrants Skin: On lateral right LE, 4 ulcers at various stages of healing. Of those, 2 open ulcers with central granulation tissue present. No purulence or fluctuance noted. There is mild warmth and erythema Neuro: Alert and oriented x3. Results & Data Results & Data Vital Signs (Past 12 Hours) Vital Signs Temp Pulse Pulse Resp BP BP BP 09/12/22 03:33 36.8 C 100 H 18 117/69 09/11/22 21:59 99 H 09/11/22 23:14 37 C 115 H 18 106/67 09/11/22 21:02 95 H 09/11/22 22:26 09/11/22 22:26 36.7 C 93 H 20 103/65 09/11/22 21:38 93 H 103/65 09/11/22 20:17 09/11/22 20:01 103 H 09/11/22 19:56 111 H 113/72 Pulse Ox O2 Del Method O2 Flow Rate 09/12/22 03:33 95 Nasal Cannula 4 09/11/22 21:59 09/11/22 23:14 96 Nasal Cannula 4 09/11/22 21:02 09/11/22 22:26 Nasal Cannula 4 09/11/22 22:26 95 Nasal Cannula 4 09/11/22 21:38 09/11/22 20:17 Nasal Cannula 4 09/11/22 20:01 09/11/22 19:56 Laboratory Results 09/12/22 05:31 09/12/22 05:31 Resident Activity Tracking Resident Involvement: Resident Care Provided Care Provided: Adult Hospital Medicine (3) Gastroesophageal reflux disease Esophagitis presence: esophagitis presence not specified Qualified Code(s): K21.9 - Gastro-esophageal reflux disease without esophagitis
[2022-09-12] MEDS: MAGNESIUM SULFATE / D5W 1 GM/100 ML BAG IV SCH (07:33)
[2022-09-12] MEDS: ROSUVASTATIN CALCIUM 10 MG TAB PO SCH (07:41)
[2022-09-12] MEDS: MAGNESIUM CHLORIDE W/CALCIUM 64MG DELAYED REL TAB PO SCH (07:42)
[2022-09-12] MEDS: LANSOPRAZOLE 15 MG SOLTAB PO SCH (07:42)
[2022-09-12] MEDS: MULTIVITAMIN TAB PO SCH (07:42)
[2022-09-12] MEDS: METOPROLOL SUCC 25MG EXT REL TAB PO SCH (07:42)
[2022-09-12] MEDS: OMEGA-3 (PURIFIED FISH OIL) 1 GM CAP PO SCH (07:42)
[2022-09-12] MEDS: ASPIRIN 325 MG ECTAB PO SCH (07:43)
[2022-09-12] MEDS: ESCITALOPRAM OXALATE 10 MG TAB PO SCH (07:43)
[2022-09-12] MEDS: CHOLECALCIFEROL 5,000 UNITS 125 MCG TAB PO SCH (07:43)
[2022-09-12] MEDS: CALCIUM CARBONATE 1250MG TAB PO SCH (07:43)
[2022-09-12] MEDS ORDERED: ESTROGENS, CONJUGATED 0.3 MG TAB PO SCH (09:00)
[2022-09-12] MEDS: VANCOMYCIN HCL 750 MG in SODIUM CHLORIDE 0.9% 250 ML IV SCH (11:41)
[2022-09-12 13:58] LABS: Appearance Urine Clear (Clear); Bacteria Urine Automated Negative (Negative); Bilirubin Urine Negative (Negative); Blood Urine Trace (Negative); Color Urine Yellow; Epithelial Cell Urine Auto >30 /lpf (0-5); Glucose Urine UA Negative (Negative); Ketones Urine Trace (Negative); Leukocyte Esterase Urine Negative (Negative); Nitrite Urine Negative (Negative); Protein Urine Trace (Negative); Specific Gravity Urine 1.017 (1.000-1.030); Urobilinogen Urine Negative (Negative); pH Urine 5.5 (4.5-7.5)
--- NOTE | 2022-09-12 15:42 | Pharmacy Report ---
Pharmacy PK ABX Note - Date of Service September 12, 2022 - Assessment and Plan Assessment 82 year old F receiving vancomycin and ceftriaxone for treatment of SSTI. Day # 2 of antimicrobial therapy. Plan Vancomycin * Loading dose: 1250 mg IV x 1 (administered yesterday) * Maintenance dose: 750 mg IV every 12 hours * Regimen is predicted to achieve target AUC/ROM of 400-600 mg/L.hr * Trough level ordered for: 09/13/22 @ 1000 Pharmacy will continue to follow and will adjust dose/frequency as necessary. Thank you. Pharmacy has transitioned to AUC monitoring for vancomycin. AUC/ROM is the preferred PK/PD target and is associated with decreased risk of nephrotoxicity compared to traditional trough targets.
[2022-09-12] MEDS ORDERED: TORSEMIDE 10 MG TAB PO ONE (15:43)
[2022-09-12] MEDS: MONTELUKAST SODIUM 10 MG TABLET PO SCH (20:14)
[2022-09-12] MEDS: MELATONIN 3 MG TAB PO SCH (20:14)
[2022-09-12] MEDS: cefTRIAXone SODIUM 2,000 MG in DEXTROSE 5% 50 ML IV SCH (20:14)
[2022-09-13] MEDS: VANCOMYCIN HCL 750 MG in SODIUM CHLORIDE 0.9% 250 ML IV SCH (00:22)
--- NOTE | 2022-09-13 05:42 | Billing Data ---
Date of Service September 12, 2022 Coding Level of Care Code 84208 SUB INP/OBS CARE MIN
--- NOTE | 2022-09-13 06:53 | Hospitalist Progress Note ---
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 Now admitted for management of cellulitis. Had a lengthy discussion with MADELAINE Herrera (daughter) on 09/13/22 regarding next steps. Yvette is concerned that she does not have the resources to take care of her mother. Zee lives in her own apartment a few minutes away from her daughter. Per Yvette, the mother has difficulty adhering to treatment regimen whether this is due to forgetfulness or outright refusal is unclear. Yvette would like a family meeting prior to discharge to discuss next steps - would include CM, hospitalist resident and attending physician. Could consider palliative assistance as well in guiding the meeting if indicated. RLE cellulitis Patient with extensive history with RLE ulcers and cellulitis. She began outpatient treatment in July. First course of abx 07/30 as there was concern for superimposed infection. Cellulitis improved and then acutely worsened. She was started on 10 days of Keflex on 08/19. She was then seen in the [facility] ED and was admitted for cellulitis. Wound cultures grew pansensitive staph lugdunensis. She was sent home with Keflex to finish the course of abx. Symptoms initially improved and then worsened again. She was restarted on Augmentin around 09/07. Symptoms continued to worsen so she represented to the ED and was admitted for IV abx. Patient currently on ceftriaxone and zosyn. Awaiting wound cultures. Patient does have a PMHx of polymyalgia rheumatica and has been treated with steroids in the past. She was to taper off of steroids after her last hospitalization. No longer on her home med list. Leukocytosis improved. Continues to be afebrile and HDS. * IV antibiotics: Vancomycin, IV ceftriaxone 2 g daily * Trend WBC on CBC. * Narrow antibiotic regimen once blood culture results finalized. 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 Patient with skin biopsy consistent with livedoid vasculopathy. Likely contributing to delayed healing and recurrent cellulitis. Will treat acute cellulitis. Does follow with Rheumatology outpatient, Dr. Gooden, who is managing. Patient is to be seen by hematology to r/o underlying hematologic etiology mid September with Neema. Could consider consulting heme to expedite work up. If they are amenable Dr. Gooden is considering trailing Rituximab. Wednesday Heme Consult - Neema Paroxysmal supraventricular tachycardia Chronic. Managed on home regimen of Toprol 25 mg daily. Continue as at home GERD Chronic. Managed on home regimen of lansoprazole 15 mg daily. Continue home regimen Cough variant asthma/interstitial lung disease Chronic. Follows Dr. Yong Thurston [place] [facility] [place]. Managed with as needed albuterol inhaler, as needed benzonatate, nightly Singulair. Also on home oxygen 3 L via nasal cannula. * Montelukast 10 mg p.o. at bedtime * Albuterol inhaler as needed, benzonatate 200 mg as needed 3 times daily * O2 supplementation via nasal cannula per home regimen * Mucinex PRN, incentive spirometry Vitamin D deficiency Chronic. Managed at home on vitamin D3 5000 units daily, calcium carbonate 600 mg daily. Continue home regimen Dyslipidemia Chronic. Managed at home with omega-3 fish oil, rosuvastatin 10 mg. Continue home regimen Varicose veins of lower extremity Chronic. Managed at home on torsemide 10 mg tablet as needed for fluid retention. 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 I agree w/ the arvizu components of her documentation. Patient w/o any complaints during my personal visit. Denies RLE pain. Denies dyspnea at rest. Eating well. Tele overnight wnl (NSR with some periods of sinus tach). Dr Dawn had a 35 minute phone discussion with the pt's daughter reviewing the care plan, answering questions, etc. VSS, afebrile gen - NAD, mild pleasant confusion like previous visit neck - no JVD heart - RRR, s1 s2, 2/6 systolic murmur LSB lungs - diffuse b/l fine/dry rales bases - unchanged; no increased work of breathing abd - soft NT ND BS+ ext - trace edema RLE, no edema LLE; minimal pink erythema distal right cox; multiple ulcerations covered with optifoams RLE cox; background of stasis changes b/l shins wound cx pending but thus far negative blood cx's neg to date A/P: 1. RLE cellulitis - improved/resolving; cont rocephin/vanco, can likely transition to PO abx next 1-2 days (keflex/doxy?). f/u on wound culture. 2. multiple RLE wounds - 2nd to livedoid vasculopathy/vasculitis. Local wound care. 3. positive p-ANCA. 4. positive cryoglobulins. Heme consult while here to determine if any additional w/u needed. If no hematological pathology found refer back to Dr Gooden, [facility] [place]um, for management. 5. h/o PMR previously on chronic steroids - these have been fully weaned off. 6. chronic resp failure on home O2 3 L. Stable. 7. ?acute/chronic diastolic CHF - torsemide x 1 yesterday. Volume status euvolemic today. appreciate PT/OT evals dispo - home with HH/family support? rehab? other? again pt's daughter extensively updated by Dr Dawn total care activities between myself & Dr Dawn = 50 min Miguel Rangel MD Subjective Patient seen at bedside. Doing well. No complaints. No f/c/SOB/CP. Wound without pain or worsening Patient on 3L NC at baseline Physical Exam Physical Exam: General: No acute distress HEENT: PERRLA. Normal conjunctiva, anicteric sclera. Respiratory: Normal respiratory effort, mild bibasilar crackles heard on auscultation. Cardiovascular: RRR without murmurs, gallops, or rubs. No pedal edema. GI: Soft, nondistended abdomen. Nontender x4 quadrants Skin: On lateral right LE, 4 ulcers at various stages of healing. Of those, 2 open ulcers with central granulation tissue present. No purulence or fluctuance noted. There is mild warmth and erythema Neuro: Alert and oriented x3. Results & Data Results & Data Vital Signs (Past 12 Hours) Vital Signs Temp Pulse Pulse Resp BP Pulse Ox O2 Del Method 09/13/22 02:58 36.8 C 98 H 18 113/70 96 Nasal Cannula 09/12/22 22:00 100 H 09/12/22 23:01 37 C 95 H 18 93/57 L 94 Nasal Cannula 09/12/22 22:43 Nasal Cannula 09/12/22 19:20 36.9 C 103 H 18 103/66 94 Nasal Cannula O2 Flow Rate 09/13/22 02:58 4 09/12/22 22:00 09/12/22 23:01 4 09/12/22 22:43 4 09/12/22 19:20 4 Resident Activity Tracking Resident Involvement: Resident Care Provided Care Provided: Adult Hospital Medicine (3) Gastroesophageal reflux disease Esophagitis presence: esophagitis presence not specified Qualified Code(s): K21.9 - Gastro-esophageal reflux disease without esophagitis
[2022-09-13 07:40] LABS: Hematocrit (blood only) 31.7 % (37.0-47.0); Hemoglobin 10.4 g/dl (12.0-16.0); Mean Corpuscular Hemoglobin 30.3 pg (25.0-34.0); Mean Corpuscular Hgb Conc 32.8 g/dL (32.0-36.0); Mean Corpuscular Volume 92.4 fL (80.0-100.0); Mean Platelet Volume 8.3 fL (9.4-12.4); Platelet Count 433 K/uL (130-400); RDW Coefficient of Variation 15.6 % (11.5-14.5); RDW Standard Deviation 52.2 fL (36.4-46.3); Red Blood Count 3.43 M/uL (4.20-5.40); White Blood Count 11.86 K/ul (4.8-10.8)
[2022-09-13 07:58] LABS: Calcium 8.4 mg/dl (8.6-10.3); Magnesium 1.7 mg/dl (1.7-2.4); Potassium 3.4 mmol/L (3.5-5.1)
[2022-09-13 08:04] LABS: BUN Creatinine Ratio 26.5 (10-20); Creatinine Clr Calc Pharmacy 76.6 ml/min; Est GFR (African American) 106.6 ml/min
[2022-09-13] MEDS: MAGNESIUM CHLORIDE W/CALCIUM 64MG DELAYED REL TAB PO SCH (08:06)
[2022-09-13] MEDS: ESCITALOPRAM OXALATE 10 MG TAB PO SCH (08:06)
[2022-09-13] MEDS: CALCIUM CARBONATE 1250MG TAB PO SCH (08:06)
[2022-09-13] MEDS: OMEGA-3 (PURIFIED FISH OIL) 1 GM CAP PO SCH (08:06)
[2022-09-13] MEDS: ASPIRIN 325 MG ECTAB PO SCH (08:06)
[2022-09-13] MEDS: MULTIVITAMIN TAB PO SCH (08:06)
[2022-09-13] MEDS: LANSOPRAZOLE 15 MG SOLTAB PO SCH (08:07)
[2022-09-13] MEDS: CHOLECALCIFEROL 5,000 UNITS 125 MCG TAB PO SCH (08:07)
[2022-09-13] MEDS: METOPROLOL SUCC 25MG EXT REL TAB PO SCH (08:07)
[2022-09-13] MEDS: ROSUVASTATIN CALCIUM 10 MG TAB PO SCH (08:07)
[2022-09-13] MEDS ORDERED: POTASSIUM CHLORIDE CRTAB 20 MEQ TABCR PO STA (10:07)
[2022-09-13] MEDS: guaiFENesin 600 MG TABCR PO PRN (10:59)
--- NOTE | 2022-09-13 11:55 | Pharmacy Report ---
Pharmacy PK ABX Note - Date of Service September 13, 2022 - Assessment and Plan Assessment 82 year old F receiving vancomycin and ceftriaxone for treatment of SSTI. Day # 2 of antimicrobial therapy. 09/13: Cultures remain negative. Discussed with provider, may consider regimen adjustment tomorrow. Plan Vancomycin * Current dose: 750 mg q12 * increase Maintenance dose: 1000 mg IV every 12 hours * Regimen is predicted to achieve target AUC/ROM of 400-600 mg/L.hr * Trough level ordered for: repeat if therapy is to continue past tomorrow or as clinically indicated Pharmacy will continue to follow and will adjust dose/frequency as necessary. Thank you. Pharmacy has transitioned to AUC monitoring for vancomycin. AUC/ROM is the preferred PK/PD target and is associated with decreased risk of nephrotoxicity compared to traditional trough targets.
[2022-09-13] MEDS: VANCOMYCIN HCL 1,000 MG in SODIUM CHLORIDE 0.9% 250 ML IV SCH (12:21)
[2022-09-13] MEDS: cefTRIAXone SODIUM 2,000 MG in DEXTROSE 5% 50 ML IV SCH (20:24)
[2022-09-13] MEDS: MONTELUKAST SODIUM 10 MG TABLET PO SCH (20:25)
[2022-09-13] MEDS: MELATONIN 3 MG TAB PO SCH (20:25)
[2022-09-13] MEDS: BENZONATATE 100 MG CAPSULE PO PRN (20:25)
[2022-09-14] MEDS: VANCOMYCIN HCL 1,000 MG in SODIUM CHLORIDE 0.9% 250 ML IV SCH (00:45)
[2022-09-14 06:22] LABS: Hematocrit (blood only) 29.6 % (37.0-47.0); Hemoglobin 9.9 g/dl (12.0-16.0); Mean Corpuscular Hemoglobin 30.5 pg (25.0-34.0); Mean Corpuscular Hgb Conc 33.4 g/dL (32.0-36.0); Mean Corpuscular Volume 91.1 fL (80.0-100.0); Mean Platelet Volume 8.5 fL (9.4-12.4); Platelet Count 434 K/uL (130-400); RDW Coefficient of Variation 15.3 % (11.5-14.5); Red Blood Count 3.25 M/uL (4.20-5.40); White Blood Count 11.05 K/ul (4.8-10.8)
[2022-09-14 06:25] LABS: BUN Creatinine Ratio 23.4 (10-20); Calcium 8.5 mg/dl (8.6-10.3); Creatinine Clr Calc Pharmacy 80.7 ml/min; Est GFR (African American) 108.1 ml/min; Est GFR (Non-African American) 93.3 ml/min; Magnesium 1.6 mg/dl (1.7-2.4); Potassium 3.7 mmol/L (3.5-5.1)
--- NOTE | 2022-09-14 06:52 | Hospitalist Progress Note ---
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 Now admitted for management of cellulitis. Had a lengthy discussion with MADELAINE Herrera (daughter) on 09/13/22 regarding next steps. Yvette is concerned that she does not have the resources to take care of her mother. Zee lives in her own apartment a few minutes away from her daughter. Per Yvette, the mother has difficulty adhering to treatment regimen whether this is due to forgetfulness or outright refusal is unclear. Yvette would like a family meeting prior to discharge to discuss next steps - would include CM, hospitalist resident and attending physician. Could consider palliative assistance as well in guiding the meeting if indicated. RLE cellulitis Patient with extensive history with RLE ulcers and cellulitis. She began outpatient treatment in July. First course of abx 07/30 as there was concern for superimposed infection. Cellulitis improved and then acutely worsened. She was started on 10 days of Keflex on 08/19. She was then seen in the [facility] ED and was admitted for cellulitis. Wound cultures grew pansensitive staph lugdunensis. She was sent home with Keflex to finish the course of abx. Symptoms initially improved and then worsened again. She was restarted on Augmentin around 09/07. Symptoms continued to worsen so she represented to the ED and was admitted for IV abx. Patient currently on ceftriaxone and zosyn. Awaiting wound cultures. Patient does have a PMHx of polymyalgia rheumatica and has been treated with steroids in the past. She was to taper off of steroids after her last hospitalization. No longer on her home med list. Leukocytosis improved. Continues to be afebrile and HDS. * IV antibiotics: switched to doxycycline BID today * Trend WBC on CBC. 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 Patient with skin biopsy consistent with livedoid vasculopathy. Likely contributing to delayed healing and recurrent cellulitis. Will treat acute cellulitis. Does follow with Rheumatology outpatient, Dr. Gooden, who is managing. Patient is to be seen by hematology to r/o underlying hematologic etiology mid September with Neema. Could consider consulting anatoly to expedite work up. If they are amenable Dr. Gooedn is considering trailing Rituximab. -Dr. Chacko/anatoly consulted Paroxysmal supraventricular tachycardia Chronic. Managed on home regimen of Toprol 25 mg daily. Continue as at home GERD Chronic. Managed on home regimen of lansoprazole 15 mg daily. Continue home regimen Cough variant asthma/interstitial lung disease Chronic. Follows Dr. Yong Thurston of [facility] [place]. Managed with as needed albuterol inhaler, as needed benzonatate, nightly Singulair. Also on home oxygen 3 L via nasal cannula. * Montelukast 10 mg p.o. at bedtime * Albuterol inhaler as needed, benzonatate 200 mg as needed 3 times daily * O2 supplementation via nasal cannula per home regimen * Mucinex PRN, incentive spirometry Vitamin D deficiency Chronic. Managed at home on vitamin D3 5000 units daily, calcium carbonate 600 mg daily. Continue home regimen Dyslipidemia Chronic. Managed at home with omega-3 fish oil, rosuvastatin 10 mg. Continue home regimen Varicose veins of lower extremity Chronic. Managed at home on torsemide 10 mg tablet as needed for fluid retention. 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 No significant pain. Dr. Bauer updated daughter and discussed case extensively. vitals noted, in general she is awake and alert pleasant no distress. Skin shows right lower extremity to have 3 areas of very sharply demarcated ulceration with thin exudate, nontender no tracking erythema, left leg shows 2 extremely sharply demarcated ulcers this time crusted again no tracking erythema leg ulcersappears to have more of a reticular pattern (more arteriolar than venous) appreciate hematology input, may need assistance from dermatology as well. Does not appear to really have any significant cellulitis, may be a mild secondary infection of the ulcers on her right legnarrow antibiotics to doxycycline and follow. PT/OT, discharge planning otherwise as above Subjective Patient seen and examined at bedside. No acute events overnight. States she feels a bit better compared to when she was admitted. Just finished her breakfast at time of encounter. Denies chest pain, shortness of breath, nausea/vomiting, fever, chills, body aches. Review of Systems Review of Systems: As per above Physical Exam Constitutional: Comfortable, in no acute distress. Eyes: Anicteric sclerae. ENMT: External ears and nose normal, moist mucous membranes. Respiratory: On NC supplemental oxygen. No increased work of breathing. Scattered crackles bilaterally. Cardiovascular: Regular rate and sinus rhythm. No gallops or rubs. +2 edema of bilateral lower extremities. Gastrointestinal (Abdomen): Abdomen soft, nontender and nondistended. Musculoskeletal: Moves all extremities. Skin: wound at right lower extremities and additional wound above left ankle (per daughter this is from punch biopsy) Results & Data Results & Data Vital Signs (Past 12 Hours) Vital Signs Temp Pulse Pulse Resp BP BP Pulse Ox 09/14/22 03:58 37.2 C 98 H 18 105/66 95 09/14/22 02:20 96 H 09/13/22 23:13 37.3 C 99 H 18 104/66 96 09/13/22 21:37 09/13/22 19:58 36.7 C 104 H 18 106/64 94 O2 Del Method O2 Flow Rate 09/14/22 03:58 Nasal Cannula 4 09/14/22 02:20 09/13/22 23:13 Room Air 4 09/13/22 21:37 Nasal Cannula 4 09/13/22 19:58 Nasal Cannula 4 Resident Activity Tracking Resident Involvement: Resident Care Provided Care Provided: Adult Hospital Medicine (3) Gastroesophageal reflux disease Esophagitis presence: esophagitis presence not specified Qualified Code(s): K21.9 - Gastro-esophageal reflux disease without esophagitis
--- NOTE | 2022-09-14 07:00 | Electrocardiogram Report ---
Test Reason : Blood Pressure : / mmHG Vent. Rate : 120 BPM Atrial Rate : 120 BPM P-R Int : 136 ms QRS Dur : 076 ms QT Int : 408 ms P-R-T Axes : 000 016 -05 degrees QTc Int : 576 ms Sinus tachycardia Diffuse Minor Nonspecific T wave abnormality Abnormal ECG When compared with ECG of 25-AUG-2022 18:45, Vent. rate has increased BY 40 BPM Otherwise no significant change Confirmed by Emil Wolf ([id number]) on 09/11/2022 3:54:39 PM Referred By: Confirmed By:Emil Wolf
--- NOTE | 2022-09-14 07:13 | Billing Data ---
Date of Service September 13, 2022 Coding Level of Care Code 62848 SUB INP/OBS CARE MIN
[2022-09-14] MEDS: BENZONATATE 100 MG CAPSULE PO PRN ×2 (07:36→21:08)
[2022-09-14] MEDS: METOPROLOL SUCC 25MG EXT REL TAB PO SCH (07:37)
[2022-09-14] MEDS: CHOLECALCIFEROL 5,000 UNITS 125 MCG TAB PO SCH (07:37)
[2022-09-14] MEDS: ESCITALOPRAM OXALATE 10 MG TAB PO SCH (07:37)
[2022-09-14] MEDS: MULTIVITAMIN TAB PO SCH (07:37)
[2022-09-14] MEDS: MAGNESIUM CHLORIDE W/CALCIUM 64MG DELAYED REL TAB PO SCH (07:37)
[2022-09-14] MEDS: guaiFENesin 600 MG TABCR PO PRN ×2 (07:37→21:08)
[2022-09-14] MEDS: ASPIRIN 325 MG ECTAB PO SCH (07:38)
[2022-09-14] MEDS: OMEGA-3 (PURIFIED FISH OIL) 1 GM CAP PO SCH (07:38)
[2022-09-14] MEDS: CALCIUM CARBONATE 1250MG TAB PO SCH (07:38)
[2022-09-14] MEDS: ROSUVASTATIN CALCIUM 10 MG TAB PO SCH (08:46)
[2022-09-14] MEDS: LANSOPRAZOLE 15 MG SOLTAB PO SCH (08:46)
[2022-09-14] MEDS: DOXYCYCLINE HYCLATE 100 MG CAP PO SCH ×2 (12:35→21:08)
[2022-09-14] MEDS: MAGNESIUM SULFATE / D5W 1 GM/100 ML BAG IV SCH ×2 (14:19→16:19)
--- NOTE | 2022-09-14 15:49 | Hospitalist Progress Note ---
Date of Service September 14, 2022 Assessment & Plan (1) Cellulitis of right lower leg: Plan: Hematology consult received but I am off site today. I will be available tomorrow and will plan to do full consult tomorrow evening. If there are emergent issues, given the unusual nature of this condition you might need to consider transfer to a higher level center with more specific expertise. In preliminary chart review the question for which hematology is consulted is w hether this is livedoid vasculopathy and how to approach that. Notably there is no apparent history to suggest a hypercoagulable syndrome otherwise and multiple recent venous duplexes have shown no DVT. Patient does have a low titer cryoglobulin but immunofixation is not particularly specific. This may need to be reordered as a cryocrit panel with immunofixation/immunodiffusion to confirm the initial test and assure that the specimen is appropriately handled to prevent the cryoglobulin from being precipitated out and underrepresented in the assay if sent as a standard immunofixation. I have sent kappa/lambda light chain and total immunoglobulin test requests but there is not a specific order in [place] for cryocrit panel with immofixation/immunodiffusion - will need to work with clinical labs to assure that is appropriately ordered, drawn and handled. Hepatitis C antibody screen is negative but there is at least case report of of Hepatitis C infection diagnosed by RNA despite negative antibody screen in a patient with cryoglobulinemia. Depending on the ultimate subtype of cryoglobulinemia may need to consider assaying for Hep C RNA and may need to include an HIV screen The July skin biopsy seems to describe more of a vascular stasis and necrosis picture - I have asked pathology to more specifically review for the classic livedoid vasculopathy picture of microthrombosis, endothelial proliferation and hyalin degeneration of the sub-intimal layer of the blood vessels. In the absence of an apparent personal or family history of VTE, a hypercoagulable work up would be very low yield but I will explore further when I see the patient in person Negative SPEP, nonspecific immunofixation and lack of a dramatic lymphocytosis do not suggest a lymphoproliferative disorder so not clear that marrow biopsy will be high yield unless kappa/lambdaor total Ig assays show abnormal results. May want to consider abd CT for splenomegaly and occult adenopathy. Assuming additional testing confirms a significant cryoglobulinemia and typing does not raise concerns wrt Hep C or HIV infection, in the absence of macrothrombosis aspirin seems a reasonable base treatment with consideration of rituximab if indicated from a rheumatology perspective. I will note that I have limited experience with the diagnosis and treatment of cryoglobulinemia and livedoid vasculopathy so quaternary center review could certainly be worthwhile Plan As above, full consult tomorrow with provisional additional labs as suggested Admission and Anticipated Discharge Date Admission Date: September 11, 2022 Subjective Patient with poor healing of leg process with recent positive screen for cryoglobulins Results & Data Results & Data Vital Signs (Past 12 Hours) Vital Signs Temp Pulse Pulse Resp BP BP Pulse Ox 09/14/22 15:38 37.1 C 88 16 96/57 L 92 09/14/22 12:30 09/14/22 11:28 103/66 09/14/22 11:23 37.1 C 98 H 16 87/55 L 93 09/14/22 10:16 09/14/22 08:10 94 09/14/22 07:53 36.5 C 104 H 16 103/56 L 72 L 09/14/22 07:20 95 H 09/14/22 03:58 37.2 C 98 H 18 105/66 95 Pulse Ox Pulse Ox O2 Del Method O2 Flow Rate O2 Flow Rate O2 Flow Rate 09/14/22 15:38 Nasal Cannula 4 09/14/22 12:30 91 80 L 4 2 09/14/22 11:28 09/14/22 11:23 Nasal Cannula 4 09/14/22 10:16 Nasal Cannula 4 09/14/22 08:10 Nasal Cannula 2 09/14/22 07:53 Nasal Cannula 4 09/14/22 07:20 09/14/22 03:58 Nasal Cannula 4 PG Care Time/CCT Total # of Minutes Spent Total Time Spent with Patient: Total time spent is greater than 50% in coordination of care (as documented) at patient's floor/unit and/or counseling patient: Coding Level of Care Code None Diagnoses Cellulitis of right lower leg L03.115
[2022-09-14 17:14] LABS: Immunoglobulin A 264.7 mg/dl (70-400); Immunoglobulin G 1281.6 mg/dl (635-1741); Immunoglobulin M 138.4 mg/dl (45-281)
--- NOTE | 2022-09-14 18:42 | Billing Data ---
Date of Service September 14, 2022 Coding Level of Care Code 95470 SUB INP/OBS CARE MIN
[2022-09-14] MEDS: MELATONIN 3 MG TAB PO SCH (21:08)
[2022-09-14] MEDS: MONTELUKAST SODIUM 10 MG TABLET PO SCH (21:08)
[2022-09-15] MEDS: ASPIRIN 325 MG ECTAB PO SCH (07:46)
[2022-09-15] MEDS: guaiFENesin 600 MG TABCR PO PRN ×2 (07:46→21:13)
[2022-09-15] MEDS: DOXYCYCLINE HYCLATE 100 MG CAP PO SCH ×2 (07:46→21:12)
[2022-09-15] MEDS: ROSUVASTATIN CALCIUM 10 MG TAB PO SCH (07:47)
[2022-09-15] MEDS: CHOLECALCIFEROL 5,000 UNITS 125 MCG TAB PO SCH (07:47)
[2022-09-15] MEDS: OMEGA-3 (PURIFIED FISH OIL) 1 GM CAP PO SCH (07:47)
[2022-09-15] MEDS: METOPROLOL SUCC 25MG EXT REL TAB PO SCH (07:47)
[2022-09-15] MEDS: LANSOPRAZOLE 15 MG SOLTAB PO SCH (07:47)
[2022-09-15] MEDS: ESCITALOPRAM OXALATE 10 MG TAB PO SCH (07:48)
[2022-09-15] MEDS: ENOXAPARIN INJ 40 MG/0.4 ML SYR SQ SCH (07:48)
[2022-09-15] MEDS: MULTIVITAMIN TAB PO SCH (07:48)
[2022-09-15 08:01] LABS: Hematocrit (blood only) 30.2 % (37.0-47.0); Hemoglobin 9.8 g/dl (12.0-16.0); Mean Corpuscular Hemoglobin 30.2 pg (25.0-34.0); Mean Corpuscular Hgb Conc 32.5 g/dL (32.0-36.0); Mean Corpuscular Volume 92.9 fL (80.0-100.0); Mean Platelet Volume 8.3 fL (9.4-12.4); Platelet Count 440 K/uL (130-400); RDW Coefficient of Variation 15.3 % (11.5-14.5); RDW Standard Deviation 52.5 fL (36.4-46.3); Red Blood Count 3.25 M/uL (4.20-5.40); White Blood Count 11.26 K/ul (4.8-10.8)
--- NOTE | 2022-09-15 08:09 | Hospitalist Progress Note ---
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 Now admitted for management of cellulitis. Had discussion with MADELAINE Herrera (daughter), planning for meeting with Palliative Care tomorrow at 10:30. Patient's daughter is concerned she is seeming unmotivated and not eating much, also concern that her coughing is worse. RLE cellulitis Patient with extensive history with RLE ulcers and cellulitis. She began outpatient treatment in July. First course of abx 07/30 as there was concern for superimposed infection. Cellulitis improved and then acutely worsened. She was started on 10 days of Keflex on 08/19. She was then seen in the [facility] ED and was admitted for cellulitis. Wound cultures grew pansensitive staph lugdunensis. She was sent home with Keflex to finish the course of abx. Symptoms initially improved and then worsened again. She was restarted on Augmentin around 09/07. Symptoms continued to worsen so she represented to the ED and was admitted for IV abx. Patient does have a PMHx of polymyalgia rheumatica and has been treated with steroids in the past. She was to taper off of steroids after her last hospitalization. No longer on her home med list. Leukocytosis improved. Continues to be afebrile and HDS. 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 Patient with skin biopsy consistent with livedoid vasculopathy. Likely contributing to delayed healing and recurrent cellulitis. Will treat acute cellulitis. Does follow with Rheumatology outpatient, Dr. Gooden, who is managing. Patient is to be seen by hematology to r/o underlying hematologic etiology mid September with Neema. Could consider consulting anatoly to expedite work up. If they are amenable Dr. Gooden is considering trailing Rituximab. -Dr. Chacko/anatoly consulted, plans to evaluate patient later today Paroxysmal supraventricular tachycardia Chronic. Managed on home regimen of Toprol 25 mg daily. Continue as at home GERD Chronic. Managed on home regimen of lansoprazole 15 mg daily. Continue home regimen Cough variant asthma/interstitial lung disease Chronic. Follows Dr. Yong Thurston of [facility] pulmonology. Managed with as needed albuterol inhaler, as needed benzonatate, nightly Singulair. Also on home oxygen 3 L via nasal cannula. * Montelukast 10 mg p.o. at bedtime * Albuterol inhaler as needed, benzonatate 200 mg as needed 3 times daily * O2 supplementation via nasal cannula per home regimen * Mucinex PRN, incentive spirometry Vitamin D deficiency Chronic. Managed at home on vitamin D3 5000 units daily, calcium carbonate 600 mg daily. Continue home regimen Dyslipidemia Chronic. Managed at home with omega-3 fish oil, rosuvastatin 10 mg. Continue home regimen Varicose veins of lower extremity Chronic. Managed at home on torsemide 10 mg tablet as needed for fluid retention. 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 no new complaints. dr bauer updated dtr again, after discussions dtr requested palliative input as well - i d/w palliative team. vitals noted, in general she is awake and alert pleasant no distress. Skin shows no tracking erythema beyond bandages. leg ulcersappears to have more of a reticular pattern (more arteriolar than venous) appreciate hematology input, may need assistance from dermatology as well - some of which will depend on goals of care. Does not appear to really have any significant cellulitis, may be a mild secondary infection of the ulcers on her right legcontinue doxy and follow PT/OT, discharge planning otherwise as above Subjective Patient seen and examined at bedside. No acute events overnight. Denies nausea/vomiting, chest pain, or abdominal pain. Eating breakfast at time of enco unter. Cough continues, worsened with deep breathing. Review of Systems Review of Systems: As per above Physical Exam Physical Exam: Constitutional: Comfortable, in no acute distress. Eyes: Anicteric sclerae. ENMT: External ears and nose normal, moist mucous membranes. Respiratory: On NC supplemental oxygen. No increased work of breathing. Scattered crackles bilaterally. Cardiovascular: Regular rate and sinus rhythm. No gallops or rubs. +2 edema of bilateral lower extremities. Gastrointestinal: Abdomen soft, nontender and nondistended. Musculoskeletal: Moves all extremities. Skin: wound at right lower extremities and additional wound above left ankle (per daughter this is from punch biopsy) Psychiatric: No acute distress, some confusion. Results & Data Results & Data Vital Signs (Past 12 Hours) Vital Signs Temp Pulse Pulse Resp BP Pulse Ox O2 Del Method 09/15/22 08:04 36.8 C 111 H 16 102/66 94 Nasal Cannula 09/15/22 07:04 90 09/15/22 03:28 96 Nasal Cannula 09/15/22 03:25 96 Nasal Cannula 09/15/22 03:07 36.9 C 97 H 18 98/58 L 93 Nasal Cannula 09/14/22 23:18 37.4 C 98 H 18 106/65 94 Nasal Cannula 09/14/22 22:00 90 09/14/22 21:47 Nasal Cannula 09/14/22 20:45 96 H 95 Nasal Cannula 09/14/22 20:17 36.6 C 113 H 18 109/63 93 Nasal Cannula O2 Flow Rate 09/15/22 08:04 4 09/15/22 07:04 09/15/22 03:28 4 09/15/22 03:25 4 09/15/22 03:07 4 09/14/22 23:18 4 09/14/22 22:00 09/14/22 21:47 4 09/14/22 20:45 2 09/14/22 20:17 4 Resident Activity Tracking Resident Involvement: Resident Care Provided Care Provided: Adult Hospital Medicine (3) Gastroesophageal reflux disease Esophagitis presence: esophagitis presence not specified Qualified Code(s): K21.9 - Gastro-esophageal reflux disease without esophagitis
[2022-09-15 08:25] LABS: BUN Creatinine Ratio 27.7 (10-20); Calcium 8.4 mg/dl (8.6-10.3); Creatinine Clr Calc Pharmacy 81.2 ml/min; Est GFR (African American) 108.1 ml/min; Est GFR (Non-African American) 93.3 ml/min; Magnesium 1.8 mg/dl (1.7-2.4); Potassium 3.9 mmol/L (3.5-5.1)
--- NOTE | 2022-09-15 11:16 | Palliative Care Consultation ---
Date of Consultation September 15, 2022 Assessment & Plan (1) Dyspnea and respiratory abnormalities: pt has hx compliance issues with oxygen per dtr. she has struggled to use it consistently. (2) Cognitive impairment: steady decline, ? dementia - no formal testing (3) Malaise and fatigue: with declining pulm status (4) Palliative care by specialist: Provided overview of Palliative Medicine, a subspecialty that provides specialized medical care for people living with a serious illness by offering a focus on quality of life. Palliative Medicine is often conflated with hospice: I advised patient/family that Palliative and hospice can be partners but we are not the same. It is important to understand the difference so that we may be informed, and not afraid. Palliative Medicine works to improve QOL through reduction of symptom burden/more control over their illness, for both the patient and family. Palliative medicine clinicians are board certified, specially-trained and another member of the patient's medical care team. We of ten provide an extra layer of support because our care is based on the needs of the patient, not the prognosis; as such, it's appropriate at any age/advancing stage of a serious illness and can be provided along with curative treatment. Palliative Medicine clinicians are also trained in advanced communication methodologies, to facilitate complex discussions about advanced illness planning, which are needed to help assure that the treatment choices match the patient's goals, aka delivering Goal Concordant care. Finally, we discussed that hospice is a visiting nurse service that focuses on care delivered at the very end of life for patients with terminal illness, with life expectancy less than 6 month. Plan * Met with pt family telephonically x 25min for ACP: Long d/w dtr/medical surrogate Yvette. She is very familiar with palliative med from OS experience with her father. * She expresses many concerns about pt decline, struggle with compliance and verbalization that she is tired of struggling and does not feel she has QOL. 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 She was never a fan of prolonging suffering or artificial life support. Yvette recognizes the lung issues is most likely the taxi cab driver for her mom's prognosis and overall mortality. She notes the vascular issue is also worrisome and the overall mystery of her mother's autoimmune ailments. She asked if I knew what specifically caused her lung disease and I advised that many ILDs do not have specific cause. I discussed how the literature demonstrates to us that patients with IPF represent a group of individuals with a chronic respiratory disease who are without disease-reversing treatment options and, absent lung t ransplantation, inevitably face progressive decline and . We discussed that IPF is a progressive fibro-proliferative lung disease that affects approximately 128,000 individuals in the [place] annually. (Viraj G, Chuck H, Abdelrahman COLINDRES, et al. ATS/ERS/JRS/ALAT Committee on Idiopathic Pulmonary Fibrosis. An official ATS/ERS/JRS/ALAT statement: idiopathic pulmonary fibrosis: evidence-based guidelines for diagnosis and management. Am J Respir Crit Care Med. 2011;183(6):709367.) And while lung transplantation may be an effective surgical therapy,less than 20% of patients ever receive a lung transplant. The remaining 80% have few treatment options. As fibrosis advances and lung function deteriorates, patients experience a progressive increase in shortness of breath, cough and fatigue. These symptoms are distressing to patients and family caregivers and present a challenge in maintaining quality of life as the disease relentlessly progresses. Despite the fatal prognosis, patients and caregivers often fail to understand the poor prognosis. (Girish TORREZ, Bipin E, Rene M, et al. Impact of a disease-management program on symptom burden and health-related quality of life in patients with idiopathic pulmonary fibrosis and their care partners. Heart Lung J Acute Crit Care. 2010;39(4):607279 and Briana Jackson, Anatoly Amaro. Interstitial lung disease original article: a qualitative study of informal caregivers perspectives on the effects of idiopathic pulmonary fibrosis. BMJ Open Resp Res. 2014:1.) * Family meeting tomorrow at bedside 1030am. Confirmed with dtr. * I have updated primary team and nursing. Thank you for allowing us to participate in the ongoing care of this patient. Please don't hesitate to call or page with any additional concerns. Dr. Rola Lees DNP Director, Palliative Care History of Present Illness Reason for Consultation: On 09/15/22 @ 07:32 Marquita Bauer Wrote To Rola Lees Goals of care: lung dz and prison care Attending Physician: Sivakumar Multani DO History of Present Illness Per ED admitting note: presents to the emergency department with complaints of right lower extremity swelling and redness. The patient has 2 ulcerations, one on the cox and 1 on the lateral malleolus that are followed by the wound care clinic. She has home health nursing coming in 2-3 times a week for dressing changes. Over the last 2 days the nurse advised that the swelling had become much more significant and the skin is hot to touch. She is concerned about the erythema. The patient is currently taking Augmentin through the wound care center, symptoms seem to develop despite this antibiotic. Patient denies any significant drainage or fevers. She does complain of some discomfort in this lower extremity. Complicated by her ILD: Potential chronic HP versus UIP/IPF with worsening PFTs, now requiring oxygen 07/09. Her daughter manages her medications.She is franklin pposed to start pirfenidone. She has documented struggles with compliance and also worsening cognitive impairment - ? dementia PMH: paroxysmal supraventricular tachycardia, GERD, dyslipidemia, GI bleed, interstitial lung disease, PMR, lower extremity edema, vasculopathy with ulceration, right greater than left lower extremity Allergies Allergy/AdvReac Type Severity Reaction Status Date / Time No Known Drug Allergies Allergy Verified 09/09/22 15:05 Home Medications Medication Instructions Recorded Confirmed Type calcium carbonate 600 mg calcium 600 mg PO DAILY 08/29/18 09/11/22 History (1,500 mg) tablet cholecalciferol (vitamin D3) 125 5,000 units PO DAILY 08/29/18 09/11/22 History mcg (5,000 unit) tablet lansoprazole 15 mg capsule,delayed 15 mg PO DAILY 08/29/18 09/11/22 History release multivitamin 1 tab PO DAILY 08/29/18 09/11/22 History magnesium chloride 64 mg 64 mg PO DAILY 09/09/18 09/11/22 History (magnesium chloride) tablet,delayed release cannabidiol 100 mg/mL oral solution 0 mg PO HS 08/29/19 09/11/22 History rosuvastatin 10 mg tablet (Crestor) 10 mg PO DAILY #90 tabs 09/04/21 09/11/22 Rx albuterol sulfate 90 mcg/actuation 2 puff inhalation Q4H PRN 04/10/22 09/11/22 Rx aerosol inhaler shortness of breath or wheezing #18 grams conjugated estrogens 0.3 mg tablet 0.3 mg PO DAILY #160 tabs 06/23/22 09/11/22 Rx metoprolol succinate 25 mg 25 mg PO DAILY #90 tabs 07/07/22 09/11/22 Rx tablet,extended release 24 hr torsemide 10 mg tablet 10 mg PO DAILY PRN Fluid Retention 07/16/22 09/11/22 History Oxygen Home #1 ea 08/05/22 09/11/22 Rx aspirin 325 mg tablet 325 mg PO DAILY 08/25/22 09/11/22 History amoxicillin 875 mg-potassium 1 tab PO BID #14 tabs 09/07/22 09/11/22 Rx clavulanate 125 mg tablet benzonatate 200 mg capsule 200 mg PO TID PRN cough 09/09/22 09/11/22 History escitalopram oxalate 10 mg tablet 10 mg PO DAILY 09/11/22 09/11/22 History montelukast 10 mg tablet 10 mg PO HS 09/11/22 09/11/22 History omega 6-pzn-brx-fish oil 1,000 mg 1 cap PO DAILY 09/11/22 09/11/22 History (120 mg-180 mg) capsule (Fish Oil) potassium citrate 99 mg capsule 99 mg PO Q OTHER DAY 09/11/22 09/11/22 History Patient History Medical History (Updated 09/15/22 @ 15:19 by Rola Lees, CATHERINE) Cognitive impairment Cough variant asthma Dyslipidemia Gastroesophageal reflux disease PSVT (paroxysmal supraventricular tachycardia) Vitamin D deficiency Surgical History H/O: hysterectomy History of lung biopsy Hx of biopsy (08/12/22) Skin, left lower extremity, punch biopsy: In office Dr. River - Ischemic necrosis. - See comment. Family History Father Hypertension Dyslipidemia Cancer Hearing loss Heart disease Mother Dementia Heart disease Daughter Allergies Aunt Stroke Uncle Stroke Denies family history of Ovarian cancer Prostate cancer No family history of adverse response to anesthesia No family history of bleeding disorder Breast cancer Lung cancer Colorectal cancer Asthma Social History Smoking Status: Former smoker Tobacco Type: Cigarettes Age Started Using Tobacco: 21; Age Quit Using Tobacco: 32; packs per day: 0.5; Second Hand Exposure: No; Do You Dip or Chew Tobacco: No; Hx Alcohol Use: Yes Alcohol type: wine Alcohol Intake Frequency: 4 or More x per/Week Alcohol Intake Frequency Comment: glass of wine every night per new patient form. Hx Substance Use: No Preferred Language: Czech Communication Ability: Effective Visual Impairment: Limited Hearing Ability: Normal Metal Moulder'S Assistant Required: No Beliefs That Will Affect Care: None marital status: Current Living Situation: Alone current occupational status: retired Feels Safe at Home: Yes Safety Concerns: Feels Safe At This Time Childhood Exposure to Second-Hand Smoke: Yes Diet: low salt caffeine: Yes (periodically) Dental Care, Regularly: Yes Physical Activity Frequency: Does not Exercise Seatbelt Use: always Sunscreen Use: Yes Do you think of yourself as: straight/heterosexual Assistive Devices: Oxygen - Continuous Review of Systems Review of Systems: All systems reviewed & are unremarkable except as noted in Subjective Physical Exam Physical Exam: elderly female frail SOB at rest mildly confused pale crackles bilat Results & Data Vital Signs (Past 12 Hours) Vital Signs Temp Pulse Pulse Resp BP Pulse Ox O2 Del Method 09/15/22 10:40 Nasal Cannula 09/15/22 08:04 36.8 C 111 H 16 102/66 94 Nasal Cannula 09/15/22 07:04 90 09/15/22 03:28 96 Nasal Cannula 09/15/22 03:25 96 Nasal Cannula 09/15/22 03:07 36.9 C 97 H 18 98/58 L 93 Nasal Cannula 09/14/22 23:18 37.4 C 98 H 18 106/65 94 Nasal Cannula O2 Flow Rate 09/15/22 10:40 4 09/15/22 08:04 4 09/15/22 07:04 09/15/22 03:28 4 09/15/22 03:25 4 09/15/22 03:07 4 09/14/22 23:18 4 Laboratory Results data reviewed Diagnostic Findings data reviewed PG Care Time/CCT Total # of Minutes Spent Total Time Spent: 75 Total Time Spent with Patient: Total time spent is greater than 50% in coordination of care (as documented) at patient's floor/unit and/or counseling patient: 25min ACP 20 min chart review/discussion with teams and nursing 15min care coordination 15min with pt Advanced Care Planning 36816 Advanced Care Planning 30 [place] [address] IN/OBS CONSULT LVL 5,80M Patient Type New History Comprehensive Exam Expanded Problem Focused Medical Decision Making High Complexity Diagnoses Dyspnea and respiratory abnormalities R06.00; R06.89 Cognitive impairment R41.89 Malaise and fatigue R53.81; R53.83 Palliative care by specialist Z51.5 Additional Codes Advanced Care Planning - 51519 Advanced Care Planning 30 Min: 96281 Advanced Care Planning 30 Min ([id number])
[2022-09-15] MEDS: MAGNESIUM CHLORIDE W/CALCIUM 64MG DELAYED REL TAB PO SCH (13:21)
[2022-09-15] MEDS: CALCIUM CARBONATE 1250MG TAB PO SCH (13:21)
--- NOTE | 2022-09-15 17:12 | Billing Data ---
Date of Service September 15, 2022 Coding Level of Care Code 40933 SUB INP/OBS CARE
--- NOTE | 2022-09-15 17:14 | Billing Data ---
Date of Service September 15, 2022 Coding Level of Care Code 37451 SUB INP/OBS CARE
[2022-09-15] MEDS ORDERED: TORSEMIDE 10 MG TAB PO ONE (18:13)
[2022-09-15] MEDS: BENZONATATE 100 MG CAPSULE PO PRN (21:12)
[2022-09-15] MEDS: MONTELUKAST SODIUM 10 MG TABLET PO SCH (21:12)
[2022-09-15] MEDS: MELATONIN 3 MG TAB PO SCH (21:13)
[2022-09-15] MEDS: ESTROGENS, CONJUGATED 0.3 MG TAB PO SCH (21:13)
--- NOTE | 2022-09-16 06:25 | Consultation ---
Date of Consultation September 16, 2022 Assessment & Plan (1) Venous stasis ulcer: See cryoglobulinemia discussion. Skin biopsy is not definitive here and we are asking for second opinion to see if that more specifically confirms a diagnosis of livedoid vasculopathy or sheds any additional light on additional elements of the differential diagnosis. I do note that she has no personal or family history of VTE and has had 3 separate venous duplex studies that do not show any macrovascular thrombosis. 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 While she may have the dermatologic appearance of livedoid vasculopathy, that is a diagnosis that is ultimately pathologic. AI had asked pathology to review the skin biopsy from 08/12 where the original diagnosis only referred to necrosis and stasis changes. Our pathologist does not feel he can make a specific diagnosis of livedoid vasculopathy. I will ask that the specimen be submitted to a skin pathology expert for more specific review. Cryoglobulins are present but at a titer of less than 0.5% which at least per Up-to-Date would be the level above which cryoglobulins would usually start to be considered as "significant." We do not have a specification of type I, II, or III cryoglobulinemia. I have asked for repeat cryo crit as well as specifically for a cryo crit immunofixation/immunodiffusion assessment. (Standard serum immunofixation only showed faint IgM lambda which is not necessarily a significant finding but that process may not have adequately preserve the cryoglobulin in its assessment). Hepatitis C antibody screen is negative but she did work as a nurse and there is at least an anecdotal report of a patient with hepatitis C related cryoglobulinemia whose antibody screen was negative and was only diagnosed with PCR. Depending on the ultimate typing of the cryoglobulinemia we may need to further assess for that and for HIV. Serum protein electrophoresis does not show quantifiable spike and the IgM levels are in normal range. She has no major symptoms of a lymphoproliferative disorder I also note the lack of any similar symptoms in the opposite lower extremity, lack of classic cold-induced acral changes, lack of Raynaud's phenomena. Overall, I think we have to be somewhat careful as to how we connect her dermatologic changes by vision and a low-level cryoglobulin by lab. Certainly low-dose aspirin seems worthwhile and would be a reasonable base treatment for livedoid vasculopathy. I would have to defer to Dr. Gooden or to other experts as to whether the livedoid vasculopathy is a pivotal part of decision-making in terms of the potential value for rituximab. I would have some concerns as to whether the rituximab could have some negative consequences in terms of further immunosuppression especially if there may be additional parts to the differential of her persistent infection at this site. In general, it might be very worthwhile to consider a quaternary center review as we are making final recommendations (3) Anemia: Nonspecific anemia though notably with thrombocytosis. B12 and folate levels are in good range. Likely an element of anemia of chronic disease/chronic inflammation but iron studies would be important to more specifically exclude iron deficiency especially with the thrombocytosis. Reticulocyte count has been requested to make sure there is no evidence of Red cell destruction. Particularly in light of the potential question of an underlying lymphoproliferative disorder we will ask for review of the peripheral smear. (4) Immune disorder: Note the patient was previously treated for polymyalgia rheumatica with ongoing issues of unusual autoimmune phenomena and as well possibly prolonged immun ocompromise given prolonged previous treatment with steroids. Rituximab may be a 2 edged sword in this setting, on the one hand to the extent that there is any autoimmune phenomena underlying her current skin issues it may be helpful but at the same time it may further immunosuppress her on top of the previous consequences of steroids Plan Certainly have complicated picture with only low-level cryoglobulin, thus far incomplete confirmation on pathology of livedoid vasculopathy, and lack of more classic constellation of symptoms that might be seen with cryoglobulinemia Based on review of the peripheral smear may want to consider flow cytometry and/or abdominal imaging for splenomegaly/adenopathy to further assess for an occult lymphoproliferative disorder though in general she does not have strong symptoms to suggest that. In the absence of other indicators of a possible lymphoproliferative disorder and without a classic M spike or, on the pending labs, any major changes in kappa/lambda light chains it is not clear that bone marrow aspiration biopsy would be high yield Await kappa/lambda determinations, peripheral smear review, second opinion of the skin biopsy, and repeat cryo crit along with more specific cryo crit based immunofixation/immunodiffusion Certainly no objection to ongoing aspirin, from a hematology perspective I am not sure that there is a role for rituximab beyond that that might be indicated by rheumatology review [facility] review would be very worthwhile History of Present Illness Reason for Consultation: Question of cryoglobulinemia/livedoid vasculopathy Attending Physician: Sivakumar Multani, DO History of Present Illness 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 She has not had any major cold-induced symptomatology over last winter, with weight loss, adenopathy, or classic lymphomas like "B" symptomatology. Without specific injury, she had relatively abrupt onset of some burning discomfort in the right lower extremity in the spring/early summer which persisted and worsened to the point of some ulceration of the skin, breakdown, and chronic cellulitis-like changes. Rheumatology evaluation felt that she had the dermatologic characteristics of livedoid vasculopathy, cryoglobulins were sent returning and a low titer of 0.1 to 0.4%. Serum immunofixation shows a faint IgM lambda band but quantified IgM antibodies are completely within normal range and there is no quantifiable M spike on SPEP. She has not had acral cyanosis, Raynaud's phenomenon, or any issues with the contralateral leg or her upper extremities nose or other peripheral sites. She worked as a nurse but without specific exposures to HIV or hepatitis C and hepatitis C antibody screen was negative 3 separate RLE venous duplex studies over the last 6 weeks of all been negative for DVT and arterial ultrasound showed no evidence of clear arterial compromise in the right lower extremity. There is no personal or family history of venous thromboembolism Extended wound care intervention and various antibiotics have failed to improve the localized changes on her right lower extremity Allergies Allergy/AdvReac Type Severity Reaction Status Date / Time No Known Drug Allergies Allergy Verified 09/09/22 15:05 Home Medications Medication Instructions Recorded Confirmed Type calcium carbonate 600 mg calcium 600 mg PO DAILY 08/29/18 09/11/22 History (1,500 mg) tablet cholecalciferol (vitamin D3) 125 5,000 units PO DAILY 08/29/18 09/11/22 History mcg (5,000 unit) tablet lansoprazole 15 mg capsule,delayed 15 mg PO DAILY 08/29/18 09/11/22 History release multivitamin 1 tab PO DAILY 08/29/18 09/11/22 History magnesium chloride 64 mg 64 mg PO DAILY 09/09/18 09/11/22 History (magnesium chloride) tablet,delayed release cannabidiol 100 mg/mL oral solution 0 mg PO HS 08/29/19 09/11/22 History rosuvastatin 10 mg tablet (Crestor) 10 mg PO DAILY #90 tabs 09/04/21 09/11/22 Rx albuterol sulfate 90 mcg/actuation 2 puff inhalation Q4H PRN 04/10/22 09/11/22 Rx aerosol inhaler shortness of breath or wheezing #18 grams conjugated estrogens 0.3 mg tablet 0.3 mg PO DAILY #160 tabs 06/23/22 09/11/22 Rx metoprolol succinate 25 mg 25 mg PO DAILY #90 tabs 07/07/22 09/11/22 Rx tablet,extended release 24 hr torsemide 10 mg tablet 10 mg PO DAILY PRN Fluid Retention 07/16/22 09/11/22 History Oxygen Home #1 ea 08/05/22 09/11/22 Rx aspirin 325 mg tablet 325 mg PO DAILY 08/25/22 09/11/22 History amoxicillin 875 mg-potassium 1 tab PO BID #14 tabs 09/07/22 09/11/22 Rx clavulanate 125 mg tablet benzonatate 200 mg capsule 200 mg PO TID PRN cough 09/09/22 09/11/22 History escitalopram oxalate 10 mg tablet 10 mg PO DAILY 09/11/22 09/11/22 History montelukast 10 mg tablet 10 mg PO HS 09/11/22 09/11/22 History omega 6-qcl-gzn-fish oil 1,000 mg 1 cap PO DAILY 09/11/22 09/11/22 History (120 mg-180 mg) capsule (Fish Oil) potassium citrate 99 mg capsule 99 mg PO Q OTHER DAY 09/11/22 09/11/22 History Patient History Medical History (Updated 09/16/22 @ 06:30 by Corky Chacko MD) Cognitive impairment Cough variant asthma Dyslipidemia Gastroesophageal reflux disease PSVT (paroxysmal supraventricular tachycardia) Vitamin D deficiency Surgical History H/O: hysterectomy History of lung biopsy Hx of biopsy (08/12/22) Skin, left lower extremity, punch biopsy: In office Dr. River - Ischemic necrosis. - See comment. Family History Father Hypertension Dyslipidemia Cancer Hearing loss Heart disease Mother Dementia Heart disease Daughter Allergies Aunt Stroke Uncle Stroke Denies family history of Ovarian cancer Prostate cancer No family history of adverse response to anesthesia No family history of bleeding disorder Breast cancer Lung cancer Colorectal cancer Asthma Social History Smoking Status: Former smoker Tobacco Type: Cigarettes Age Started Using Tobacco: 21; Age Quit Using Tobacco: 32; packs per day: 0.5; Second Hand Exposure: No; Do You Dip or Chew Tobacco: No; Hx Alcohol Use: Yes Alcohol type: wine Alcohol Intake Frequency: 4 or More x per/Week Alcohol Intake Frequency Comment: glass of wine every night per new patient form. Hx Substance Use: No Preferred Language: Tamazight Communication Ability: Effective Visual Impairment: Limited Hearing Ability: Normal [employer] Required: No Beliefs That Will Affect Care: None marital status: Current Living Situation: Alone current occupational status: retired Feels Safe at Home: Yes Safety Concerns: Feels Safe At This Time Childhood Exposure to Second-Hand Smoke: Yes Diet: low salt caffeine: Yes (periodically) Dental Care, Regularly: Yes Physical Activity Frequency: Does not Exercise Seatbelt Use: always Sunscreen Use: Yes Do you think of yourself as: straight/heterosexual Assistive Devices: Oxygen - Continuous Physical Exam Physical Exam: Vital signs stable, no acute distress other than the issues related to her right lower extremity. There is no pathologic adenopathy palpable in the occipital, pre or postauricular, cervical, supraclavicular, axillary, or inguinal regions Her lungs are clear to percussion auscultation currently Cardiac rhythm is regular without pathological murmur The abdomen is soft and nontender. There is no specific evidence of splenomegaly or pathologic mass Extremities show bandaged lesions in the junction of the lower middle third of the right anterior tibial area of the right lower extremity. Toes seem to show good capillary refill in the contralateral leg is unremarkable. There are no compression tenderness or cords in either calf which are symmetric. Results & Data Vital Signs (Past 12 Hours) Vital Signs Temp Pulse Pulse Resp BP BP Pulse Ox 09/16/22 04:48 107/51 L 09/16/22 04:12 93 H 09/16/22 03:24 36.9 C 96 H 18 98/62 L 93 09/15/22 22:00 114 H 09/15/22 23:50 97 H 09/15/22 23:22 113 H 93 09/15/22 23:07 36.4 C L 118 H 18 106/62 92 09/15/22 22:18 09/15/22 21:00 37.4 C 114 H 20 116/69 92 O2 Del Method O2 Flow Rate 09/16/22 04:48 09/16/22 04:12 09/16/22 03:24 Nasal Cannula 4 09/15/22 22:00 09/15/22 23:50 09/15/22 23:22 Nasal Cannula 4 09/15/22 23:07 Nasal Cannula 4 09/15/22 22:18 Nasal Cannula 4 09/15/22 21:00 Nasal Cannula 4 Laboratory Results Laboratory Results - last 24 hr 09/15/22 09/15/22 07:30 07:30 WBC 11.26 H RBC 3.25 L Hgb 9.8 L Hct 30.2 L MCV 92.9 MCH 30.2 MCHC 32.5 RDW Std Deviation 52.5 H RDW Coeff of Viktor 15.3 H Plt Count 440 H MPV 8.3 L Sodium 134 L Potassium 3.9 Chloride 100 Carbon Dioxide 29 Anion Gap 5 BUN 13 Creatinine 0.47 L Est Cr Clr Drug Dosing 81.2 Est GFR ( Amer) 108.1 Est GFR (Non-Af Amer) 93.3 BUN/Creatinine Ratio 27.7 H Glucose 105 H Calcium 8.4 L Magnesium 1.8 Diagnostic Findings Chest X-Ray 09/11/22 14:33 XR chest 1V portable HISTORY: 82 years-old Female Dyspnea acute shortness of breath COMPARISON: 08/28/2022, chest CT 04/30/2022 TECHNIQUE: AP view of the chest FINDINGS: Cardiac silhouette is enlarged. Pulmonary vascular congestion suggested on a background of chronic interstitial lung disease. No pneumothorax, pleural effusion or lobar airspace consolidation. Unchanged right hemidiaphragmatic elevation. Pericardial calcifications Bones appear grossly intact. IMPRESSION: 1. Cardiomegaly with pulmonary vascular congestion. 2. Chronic interstitial lung disease. 3. Chronic pericardial calcifications. ACT 112: Negative or not required by law. The above report was generated using voice recognition software. It may contain grammatical, syntax or spelling errors. Electronically signed by: Jan Beavers M.D. 09/11/2022 3:13 PM Venous Doppler Study 09/11/22 17:50 BILATERAL LOWER EXTREMITY VENOUS DOPPLER HISTORY: Acute pain and swelling of the right lower leg DVT COMPARISON STUDY: 08/25/2022 FINDINGS: There is normal compressibility, flow, and augmentation within the bilateral lower extremity deep venous systems. Subcutaneous edema. IMPRESSION: No DVT within the right or left lower extremity. ACT 112: Negative or not required by law. Electronically signed by: Jan Beavers M.D. 09/11/2022 6:28 PM PG Care Time/CCT Total # of Minutes Spent Total Time Spent with Patient: Total time spent is greater than 50% in coordination of care (as documented) at patient's floor/unit and/or counseling patient: Coding Level of Care Code 05678 IN/OBS CONSULT LVL 4,60M History Expanded Problem Focused Exam Expanded Problem Focused Medical Decision Making High Complexity Diagnoses Venous stasis ulcer I83.018; L97.812 Laterality: right Non-pressure ulcer stage: with fat layer exposed Varicose vein presence: unspecified whether present Venous stasis ulcer site: other part of lower leg Cryoglobulinemia D89.1 Anemia D64.9 Immune disorder D89.9 (1) Venous stasis ulcer Laterality: right Non-pressure ulcer stage: with fat layer exposed Varicose vein presence: unspecified whether present Venous stasis ulcer site: other part of lower leg Qualified Code(s): I83.018 - Varicose veins of right lower extremity with ulcer other part of lower leg; L97.812 - Non-pressure chronic ulcer of other part of right lower leg with fat layer exposed
[2022-09-16 07:11] LABS: Hematocrit (blood only) 29.2 % (37.0-47.0); Hemoglobin 9.8 g/dl (12.0-16.0); Mean Corpuscular Hemoglobin 30.1 pg (25.0-34.0); Mean Corpuscular Hgb Conc 33.6 g/dL (32.0-36.0); Mean Corpuscular Volume 89.6 fL (80.0-100.0); Mean Platelet Volume 8.3 fL (9.4-12.4); Platelet Count 464 K/uL (130-400); RDW Standard Deviation 49.2 fL (36.4-46.3); Red Blood Count 3.26 M/uL (4.20-5.40); Reticulocyte % 2.3 % (0.5-2.0); Reticulocytes # 0.08 10^6/uL (0.02-0.10); White Blood Count 12.33 K/ul (4.8-10.8)
[2022-09-16 07:27] LABS: BUN Creatinine Ratio 21.2 (10-20); Calcium 8.6 mg/dl (8.6-10.3); Creatinine Clr Calc Pharmacy 73.4 ml/min; Est GFR (African American) 104.6 ml/min; Est GFR (Non-African American) 90.2 ml/min; Magnesium 1.6 mg/dl (1.7-2.4); Potassium 3.6 mmol/L (3.5-5.1)
[2022-09-16 07:39] LABS: Ferritin 168.2 ng/ml (8-388)
[2022-09-16] MEDS: ESCITALOPRAM OXALATE 10 MG TAB PO SCH (07:54)
[2022-09-16] MEDS: ENOXAPARIN INJ 40 MG/0.4 ML SYR SQ SCH (07:54)
[2022-09-16] MEDS: ASPIRIN 325 MG ECTAB PO SCH (07:54)
[2022-09-16] MEDS: CHOLECALCIFEROL 5,000 UNITS 125 MCG TAB PO SCH (07:54)
[2022-09-16] MEDS: OMEGA-3 (PURIFIED FISH OIL) 1 GM CAP PO SCH (07:55)
[2022-09-16] MEDS: METOPROLOL SUCC 25MG EXT REL TAB PO SCH (07:55)
[2022-09-16] MEDS: MULTIVITAMIN TAB PO SCH (07:55)
[2022-09-16] MEDS: LANSOPRAZOLE 15 MG SOLTAB PO SCH (07:55)
[2022-09-16] MEDS: ROSUVASTATIN CALCIUM 10 MG TAB PO SCH (07:55)
[2022-09-16] MEDS: DOXYCYCLINE HYCLATE 100 MG CAP PO SCH ×2 (07:55→20:04)
--- NOTE | 2022-09-16 08:29 | Hospitalist Progress Note ---
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 Now admitted for management of cellulitis. * Discussion with daughter and palliative today, patient agreeable to rehab upon RLE cellulitis Patient with extensive history with RLE ulcers and cellulitis. She began outpatient treatment in July. First course of abx 07/30 as there was concern for superimposed infection. Cellulitis improved and then acutely worsened. She was started on 10 days of Keflex on 08/19. She was then seen in the [facility] ED and was admitted for cellulitis. Wound cultures grew pansensitive staph lugdunensis. She was sent home with Keflex to finish the course of abx. Symptoms initially improved and then worsened again. She was restarted on Augmentin around 09/07. Symptoms continued to worsen so she represented to the ED and was admitted for IV abx. Patient does have a PMHx of polymyalgia rheumatica and has been treated with steroids in the past. She was to taper off of steroids after her last hospitalization. No longer on her home med list. Leukocytosis improved. Continues to be afebrile and HDS. 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 Patient with skin biopsy consistent with livedoid vasculopathy. Likely contributing to delayed healing and recurrent cellulitis. Will treat acute cellulitis. Does follow with Rheumatology outpatient, Dr. Gooden, who is managing. Patient is to be seen by hematology to r/o underlying hematologic etiology mid September with Neema. Could consider consulting anatoly to expedite work up. If they are amenable Dr. Gooden is considering trailing Rituximab. -Dr. Chacko/anatoly consulted, will touch base with rheum/Dr. Gooden regarding outpatient plan Paroxysmal supraventricular tachycardia Chronic. Managed on home regimen of Toprol 25 mg daily. Continue as at home GERD Chronic. Managed on home regimen of lansoprazole 15 mg daily. Continue home regimen Cough variant asthma/interstitial lung disease Chronic. Follows Dr. Yong Thurston of [facility] [place]. Managed with as needed albuterol inhaler, as needed benzonatate, nightly Singulair. Also on home oxygen 3 L via nasal cannula. * Montelukast 10 mg p.o. at bedtime * Albuterol inhaler as needed, benzonatate 200 mg as needed 3 times daily * O2 supplementation via nasal cannula per home regimen * Mucinex PRN, incentive spirometry Vitamin D deficiency Chronic. Managed at home on vitamin D3 5000 units daily, calcium carbonate 600 mg daily. Continue home regimen Dyslipidemia Chronic. Managed at home with omega-3 fish oil, rosuvastatin 10 mg. Continue home regimen Varicose veins of lower extremity Chronic. Managed at home on torsemide 10 mg tablet as needed for fluid retention. 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 no new complaints. resident physician and palliative had d/w pt/dtr vitals noted, in general she is awake and alert pleasant no distress. Skin shows no tracking erythema beyond bandages. leg ulcersappears to have more of a reticular pattern (more arteriolar than venous) appreciate hematology input, may need assistance from dermatology as well - some of which will depend on goals of care. Does not appear to really have any significant cellulitis, may be a mild secondary infection of the ulcers on her right legcontinue doxy and follow PT/OT, discharge planning otherwise as above Subjective Patient seen and examined at bedside. States she is feeling ok this morning. No acute events overnight. Daughter, Yvette, was at bedside for meeting with palliative. Patient agreeable to go to rehab. Review of Systems Review of Systems: As per above Physical Exam Physical Exam: Constitutional: Comfortable, in no acute distress. Eyes: Anicteric sclerae. ENMT: External ears and nose normal, moist mucous membranes. Respiratory: On NC supplemental oxygen. Occasional cough Cardiovascular: Regular rate and sinus rhythm. No gallops or rubs. +2 edema of bilateral lower extremities. Gastrointestinal: Abdomen soft, nontender and nondistended. Musculoskeletal: Moves all extremities. Skin: wound at right lower extremities, covered with bandage. No extending erythema. Psychiatric: No acute distress, some confusion. Results & Data Results & Data Vital Signs (Past 12 Hours) Vital Signs Temp Pulse Pulse Resp BP BP Pulse Ox 09/16/22 07:28 36.7 C 103 H 20 102/60 94 09/16/22 04:48 107/51 L 09/16/22 04:12 93 H 09/16/22 03:24 36.9 C 96 H 18 98/62 L 93 09/15/22 22:00 114 H 09/15/22 23:50 97 H 09/15/22 23:22 113 H 93 09/15/22 23:07 36.4 C L 118 H 18 106/62 92 09/15/22 22:18 09/15/22 21:00 37.4 C 114 H 20 116/69 92 O2 Del Method O2 Flow Rate 09/16/22 07:28 Nasal Cannula 4 09/16/22 04:48 09/16/22 04:12 09/16/22 03:24 Nasal Cannula 4 09/15/22 22:00 09/15/22 23:50 09/15/22 23:22 Nasal Cannula 4 09/15/22 23:07 Nasal Cannula 4 09/15/22 22:18 Nasal Cannula 4 09/15/22 21:00 Nasal Cannula 4 Resident Activity Tracking Resident Involvement: Resident Care Provided Care Provided: Adult Hospital Medicine (3) Gastroesophageal reflux disease Esophagitis presence: esophagitis presence not specified Qualified Code(s): K21.9 - Gastro-esophageal reflux disease without esophagitis
[2022-09-16] MEDS ORDERED: MAGNESIUM SULFATE / D5W 1 GM/100 ML BAG IV ONE (08:38)
--- NOTE | 2022-09-16 11:17 | Palliative Care Progress Note ---
Date of Service September 16, 2022 Assessment & Plan (1) Dyspnea and respiratory abnormalities: (2) Malaise and fatigue: (3) Cognitive impairment: (4) Palliative care by specialist: (5) Advanced care planning/counseling discussion: Plan: ACP discussion 45min face to face with pt, dtr, Dr Oviedo and myself: Dr. Oviedo and I met with eZe Campbell and her daughter Yvette this morning. Zee is willing to try rehab and I think [facility] would be ideal from a pulm rehab perspective if they would accept her. I asked keisha to order a PT eval to facilitate this as well. Zee is not inclined towards hospice at this junction but recognizes it may have a role in her future. We spoke in detail about ILD progression and potentials for rapid, precipitous decline which may lead to hospice engagement sooner than later. Her overall goal is to return home and stay in her home as long as possible. She is willing to continue OP pulm rehab after IP rehab is done and she is willing to accept visiting nurse service as well for ongoing mgt. I did encourage her to think about hospice once she is home and done with rehab as they would provide the most comprehensive support but she was not ready to accept that for now. Plan ACP family meeting as noted above recc pulm rehab recc PT eval ?[facility] would be best option for her TS 75min Admission and Anticipated Discharge Date Admission Date: September 11, 2022 Subjective more awake and alert today, still napping a fair amount dtr Yvette at bedside denies new pain, SOb about the same feels tired, weak at times notes she is feeling progression of her lung disease pascual over the last 1-2 years Review of Systems Review of Systems: All systems reviewed & are unremarkable except as noted in Subjective Physical Exam Physical Exam: elderly female, frail Bitemp wasting sl diaphoretic today SOB at rest crackles bilat, mid to lower bases conversational dyspnea and use of accessory muscles noted abd soft, non tender extremities with +1 edema skin wamr, pale AAOx3, easily off track sometimes but quickly refocuses when cued Results & Data Vital Signs (Past 12 Hours) Vital Signs Temp Pulse Resp BP Pulse Ox O2 Del Method O2 Flow Rate 09/16/22 08:30 Nasal Cannula 4 09/16/22 07:28 36.7 C 103 H 20 102/60 94 Nasal Cannula 4 09/16/22 04:48 107/51 L 09/16/22 04:12 93 H 09/16/22 03:24 36.9 C 96 H 18 98/62 L 93 Nasal Cannula 4 09/15/22 23:50 97 H 09/15/22 23:22 113 H 93 Nasal Cannula 4 Laboratory Results data reviewed Diagnostic Findings data reviewed PG Care Time/CCT Total # of Minutes Spent Total Time Spent: 75 Total Time Spent with Patient: Total time spent is greater than 50% in coordination of care (as documented) at patient's floor/unit and/or counseling patient: 15 min chart rveiew, imaging review, clinical data review/PFTs 15min with pt 45min ACP meeting Advanced Care Planning 66360 Advanced Care Planning 30 Min 28552 Advanced Care Planning Additional 30 Min [place] [address] SUB INP/OBS CARE 3/50MIN Patient Type Established History Comprehensive Exam Comprehensive Medical Decision Making High Complexity Diagnoses Dyspnea and respiratory abnormalities R06.00; R06.89 Malaise and fatigue R53.81; R53.83 Cognitive impairment R41.89 Palliative care by specialist Z51.5 Advanced care planning/counseling discussion Z71.89 Additional Codes Advanced Care Planning - 50127 Advanced Care Planning 30 Min: 85773 Advanced Care Planning 30 Min ([id number]) Advanced Care Planning - 56664 Advanced Care Planning Additional 30 Min: 08581 Advanced Care Planning Additional 30 Min ([id number])
[2022-09-16] MEDS: MAGNESIUM CHLORIDE W/CALCIUM 64MG DELAYED REL TAB PO SCH (12:10)
[2022-09-16] MEDS: CALCIUM CARBONATE 1250MG TAB PO SCH (12:10)
[2022-09-16 12:12] LABS: Free Kappa 68.9 mg/L (3.3-19.4); Free Kappa/Lambda Ratio 1.48 (0.26-1.65); Free Lambda 46.4 mg/L (5.7-26.3)
[2022-09-16] MEDS ORDERED: IRON SUCROSE 200 MG in 0.9 % SODIUM CHLORIDE 100 ML IV ONE (13:30)
[2022-09-16] MEDS: ALBUTEROL HFA 8 GM INHALER INH PRN ×2 (15:33→23:50)
--- NOTE | 2022-09-16 18:20 | Billing Data ---
Date of Service September 16, 2022 Coding Level of Care Code 85910 SUB INP/OBS CARE
[2022-09-16] MEDS: ESTROGENS, CONJUGATED 0.3 MG TAB PO SCH (20:04)
[2022-09-16] MEDS: MONTELUKAST SODIUM 10 MG TABLET PO SCH (20:04)
[2022-09-16] MEDS: MELATONIN 3 MG TAB PO SCH (20:06)
[2022-09-17 07:41] LABS: Hematocrit (blood only) 29.6 % (37.0-47.0); Hemoglobin 9.7 g/dl (12.0-16.0); Mean Corpuscular Hemoglobin 29.8 pg (25.0-34.0); Mean Corpuscular Hgb Conc 32.8 g/dL (32.0-36.0); Mean Corpuscular Volume 90.8 fL (80.0-100.0); Mean Platelet Volume 8.4 fL (9.4-12.4); Platelet Count 485 K/uL (130-400); RDW Coefficient of Variation 15.4 % (11.5-14.5); RDW Standard Deviation 51.6 fL (36.4-46.3); Red Blood Count 3.26 M/uL (4.20-5.40)
[2022-09-17 08:10] LABS: BUN Creatinine Ratio 24.5 (10-20); Calcium 8.7 mg/dl (8.6-10.3); Creatinine Clr Calc Pharmacy 76.5 ml/min; Est GFR (African American) 106.6 ml/min; Magnesium 1.8 mg/dl (1.7-2.4); Potassium 3.8 mmol/L (3.5-5.1)
[2022-09-17] MEDS: ASPIRIN 325 MG ECTAB PO SCH (08:11)
[2022-09-17] MEDS: LANSOPRAZOLE 15 MG SOLTAB PO SCH (08:11)
[2022-09-17] MEDS: MULTIVITAMIN TAB PO SCH (08:11)
[2022-09-17] MEDS: OMEGA-3 (PURIFIED FISH OIL) 1 GM CAP PO SCH (08:11)
[2022-09-17] MEDS: METOPROLOL SUCC 25MG EXT REL TAB PO SCH (08:11)
[2022-09-17] MEDS: ENOXAPARIN INJ 40 MG/0.4 ML SYR SQ SCH (08:12)
[2022-09-17] MEDS: ESCITALOPRAM OXALATE 10 MG TAB PO SCH (08:12)
[2022-09-17] MEDS: CHOLECALCIFEROL 5,000 UNITS 125 MCG TAB PO SCH (09:37)
[2022-09-17] MEDS: DOXYCYCLINE HYCLATE 100 MG CAP PO SCH ×2 (09:37→20:50)
[2022-09-17] MEDS: ROSUVASTATIN CALCIUM 10 MG TAB PO SCH (09:38)
[2022-09-17] MEDS: CALCIUM CARBONATE 1250MG TAB PO SCH (12:04)
[2022-09-17] MEDS: MAGNESIUM CHLORIDE W/CALCIUM 64MG DELAYED REL TAB PO SCH (12:04)
[2022-09-17] MEDS: BENZONATATE 100 MG CAPSULE PO PRN (14:16)
--- NOTE | 2022-09-17 14:47 | Hospitalist Progress Note ---
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 Now admitted for management of cellulitis. * Discussion with daughter and palliative on 09/16, patient agreeable to rehab upon discharge * Now awaiting placement for rehab RLE cellulitis Patient with extensive history with RLE ulcers and cellulitis. She began outpatient treatment in July. First course of abx 07/30 as there was concern for superimposed infection. Cellulitis improved and then acutely worsened. She was started on 10 days of Keflex on 08/19. She was then seen in the [facility] ED and was admitted for cellulitis. Wound cultures grew pansensitive staph lugdunensis. She was sent home with Keflex to finish the course of abx. Symptoms initially improved and then worsened again. She was restarted on Augmentin around 09/07. Symptoms continued to worsen so she represented to the ED and was admitted for IV abx. Patient does have a PMHx of polymyalgia rheumatica and has been treated with s teroids in the past. She was to taper off of steroids after her last hospitalization. No longer on her home med list. Leukocytosis improved. 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 Patient with skin biopsy consistent with livedoid vasculopathy. Likely contributing to delayed healing and recurrent cellulitis. Will treat acute cellulitis. Does follow with Rheumatology outpatient, Dr. Gooden, who is managing. Patient was to be seen by hematology to r/o underlying hematologic etiology mid September with Neema. -Dr. Chacko/heme consulted, touched base with rheum/Dr. Gooden regarding outpatient plan. Paroxysmal supraventricular tachycardia Chronic. Managed on home regimen of Toprol 25 mg daily. Continue as at home GERD Chronic. Managed on home regimen of lansoprazole 15 mg daily. Continue home regimen Cough variant asthma/interstitial lung disease Chronic. Follows Dr. Yong Thurston of [facility] pulmonology. Managed with as needed albuterol inhaler, as needed benzonatate, nightly Singulair. On 3L NC at home * Montelukast 10 mg p.o. at bedtime * Albuterol inhaler as needed, benzonatate 200 mg as needed 3 times daily * O2 supplementation via nasal cannula. Currently on 6L NC * Mucinex PRN, incentive spirometry Vitamin D deficiency Chronic. Managed at home on vitamin D3 5000 units daily, calcium carbonate 600 mg daily. Continue home regimen Dyslipidemia Chronic. Managed at home with omega-3 fish oil, rosuvastatin 10 mg. Continue home regimen Varicose veins of lower extremity Chronic. Managed at home on torsemide 10 mg tablet as needed for fluid retention. 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 no new complaints. awaiting rehab vitals noted, in general she is awake and alert pleasant no distress. Skin shows no tracking erythema beyond bandages. leg ulcersappears to have more of a reticular pattern (more arteriolar than venous) appreciate hematology input, may need assistance from dermatology as well - some of which will depend on goals of care. Does not appear to really have any significant cellulitis, may be a mild secondary infection of the ulcers on her right legcontinue doxy and follow - dping well. will coordinate hematology f/u as outpt Pulmonary fibrosis, slight escalation in oxygen requirementsuspect atelectasis since she has been an active in the hospital, check PA and lateral chest x-ray to be safe PT/OT, discharge planning otherwise as above Subjective Patient seen and examined at bedside. Patient seated upright in chair. She states she is feeling ok today, cough is a bit less frequent- did have an increased O2 requirement with oxymask yesterday evening but has now returned to 6L NC and is breathing comfortably. Denies chest pain or abdominal pain. States she feels weak overall. Review of Systems Review of Systems: As per above Physical Exam Physical Exam: Constitutional: Comfortable, in no acute distress. Eyes: Anicteric sclerae. ENMT: External ears and nose normal, moist mucous membranes. Respiratory: On NC supplemental oxygen. Occasional cough, +few scattered crackles Cardiovascular: Regular rate and sinus rhythm. No gallops or rubs. +2 edema of bilateral lower extremities. Gastrointestinal: Abdomen soft, nontender and nondistended. Musculoskeletal: Moves all extremities. Skin: wound at right and left lower extremities, covered with bandage. No extending erythema. Psychiatric: No acute distress Results & Data Results & Data Vital Signs (Past 12 Hours) Vital Signs Temp Pulse Pulse Resp BP Pulse Ox O2 Del Method 09/17/22 11:31 36.6 C 83 20 105/69 98 Nasal Cannula 09/17/22 07:51 36.8 C 95 H 20 100/57 L 94 Room Air 09/17/22 07:21 Oxymask 09/17/22 07:12 88 09/17/22 03:01 36.9 C 93 H 18 101/63 96 Oxymask O2 Flow Rate 09/17/22 11:31 6 09/17/22 07:51 09/17/22 07:21 6 09/17/22 07:12 09/17/22 03:01 6 Resident Activity Tracking Resident Involvement: Resident Care Provided Care Provided: Adult Hospital Medicine (3) Gastroesophageal reflux disease Esophagitis presence: esophagitis presence not specified Qualified Code(s): K21.9 - Gastro-esophageal reflux disease without esophagitis
--- NOTE | 2022-09-17 18:19 | Billing Data ---
Date of Service September 17, 2022 Coding Level of Care Code 23592 SUB INP/OBS CARE
[2022-09-17] MEDS: MELATONIN 3 MG TAB PO SCH (20:19)
[2022-09-17] MEDS: MONTELUKAST SODIUM 10 MG TABLET PO SCH (20:19)
[2022-09-17] MEDS: ESTROGENS, CONJUGATED 0.3 MG TAB PO SCH (20:19)
--- NOTE | 2022-09-18 07:22 | Hospitalist Progress Note ---
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 Now admitted for management of cellulitis. * Discussion with daughter and palliative on 09/16, patient agreeable to rehab upon discharge * Now awaiting placement for rehab RLE cellulitis Patient with extensive history with RLE ulcers and cellulitis. She began outpatient treatment in July. First course of abx 07/30 as there was concern for superimposed infection. Cellulitis improved and then acutely worsened. She was started on 10 days of Keflex on 08/19. She was then seen in the [facility] ED and was admitted for cellulitis. Wound cultures grew pansensitive staph lugdunensis. She was sent home with Keflex to finish the course of abx. Symptoms initially improved and then worsened again. She was restarted on Augmentin around 09/07. Symptoms continued to worsen so she represented to the ED and was admitted for IV abx. Patient does have a PMHx of polymyalgia rheumatica and has been treated with s teroids in the past. She was to taper off of steroids after her last hospitalization. No longer on her home med list. Leukocytosis improved. 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 Patient with skin biopsy consistent with livedoid vasculopathy. Likely contributing to delayed healing and recurrent cellulitis. Will treat acute cellulitis. Does follow with Rheumatology outpatient, Dr. Gooden, who is managing. Patient was to be seen by hematology to r/o underlying hematologic etiology mid September with Neema. -Dr. Chacko/heme consulted, touched base with rheum/Dr. Gooden regarding outpatient plan. Paroxysmal supraventricular tachycardia Chronic. Managed on home regimen of Toprol 25 mg daily. Continue as at home GERD Chronic. Managed on home regimen of lansoprazole 15 mg daily. Continue home regimen Cough variant asthma/interstitial lung disease Chronic. Follows Dr. Yong Thurston of [facility] [place]. Managed with as needed albuterol inhaler, as needed benzonatate, nightly Singulair. On 3L NC at home * Montelukast 10 mg p.o. at bedtime * Albuterol inhaler as needed, benzonatate 200 mg as needed 3 times daily * O2 supplementation via nasal cannula. Currently on 6L NC * Mucinex PRN, incentive spirometry Vitamin D deficiency Chronic. Managed at home on vitamin D3 5000 units daily, calcium carbonate 600 mg daily. Continue home regimen Dyslipidemia Chronic. Managed at home with omega-3 fish oil, rosuvastatin 10 mg. Continue home regimen Varicose veins of lower extremity Chronic. Managed at home on torsemide 10 mg tablet as needed for fluid retention. 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 Review of Systems Review of Systems: As per above Physical Exam Physical Exam: Constitutional: Comfortable, in no acute distress. Eyes: Anicteric sclerae. ENMT: External ears and nose normal, moist mucous membranes. Respiratory: On NC supplemental oxygen. Occasional cough, +few scattered crackles Cardiovascular: Regular rate and sinus rhythm. No gallops or rubs. +2 edema of bilateral lower extremities. Gastrointestinal: Abdomen soft, nontender and nondistended. Musculoskeletal: Moves all extremities. Skin: wound at right and left lower extremities, covered with bandage. No extending erythema. Psychiatric: No acute distress Results & Data Results & Data Vital Signs (Past 12 Hours) Vital Signs Temp Pulse Pulse Resp BP BP Pulse Ox 09/18/22 03:13 36.8 C 86 18 96/54 L 96 09/17/22 23:45 09/17/22 22:40 99 H 09/17/22 22:25 37.1 C 89 18 97/57 L 96 09/17/22 20:00 09/17/22 19:42 37.4 C 99 H 18 97/56 L 100/63 92 O2 Del Method O2 Flow Rate 09/18/22 03:13 Oxymask 6 09/17/22 23:45 Oxymask 6 09/17/22 22:40 08/03/23 22:25 Oxymask 6 09/17/22 20:00 Oxymask 6 09/17/22 19:42 Oxymask 6 Resident Activity Tracking Resident Involvement: Resident Care Provided Care Provided: Adult Hospital Medicine (3) Gastroesophageal reflux disease Esophagitis presence: esophagitis presence not specified Qualified Code(s): K21.9 - Gastro-esophageal reflux disease without esophagitis
--- NOTE | 2022-09-18 07:33 | XRay Report ---
XR chest 2V PA/lateral CLINICAL HISTORY: increased oxygen requirement COMPARISON STUDY: Chest CT April 30, 2022. Chest radiograph September 11, 2022. FINDINGS: Pericardial calcifications are incidentally noted. Cardiomegaly is unchanged. There is no p neumothorax. No pleural effusion is present. Diffuse interstitial thickening is again noted. This is similar to prior exam of September 11, 2022. Linear left upper lung densities are likely related to underl yvette interstitial lung disease. No superimposed consolidation is identified. IMPRESSION: 1. No significant change in diffuse interstitial thickening consistent with interstitial lung disease . No definite superimposed pneumonia. 2. Stable cardiomegaly. ACT 112: Negative or not required by law. Electronically signed by: Harjinder Chen M.D. 09/18/2022 7:32 AM
[2022-09-18 08:01] LABS: Hematocrit (blood only) 29.4 % (37.0-47.0); Hemoglobin 9.6 g/dl (12.0-16.0); Mean Corpuscular Hemoglobin 29.7 pg (25.0-34.0); Mean Corpuscular Hgb Conc 32.7 g/dL (32.0-36.0); Mean Platelet Volume 8.5 fL (9.4-12.4); Platelet Count 521 K/uL (130-400); RDW Coefficient of Variation 15.2 % (11.5-14.5); RDW Standard Deviation 50.8 fL (36.4-46.3); Red Blood Count 3.23 M/uL (4.20-5.40)
[2022-09-18] MEDS: ESCITALOPRAM OXALATE 10 MG TAB PO SCH (08:05)
[2022-09-18] MEDS: METOPROLOL SUCC 25MG EXT REL TAB PO SCH (08:05)
[2022-09-18] MEDS: MAGNESIUM CHLORIDE W/CALCIUM 64MG DELAYED REL TAB PO SCH (08:05)
[2022-09-18] MEDS: MULTIVITAMIN TAB PO SCH (08:05)
[2022-09-18] MEDS: DOXYCYCLINE HYCLATE 100 MG CAP PO SCH (08:05)
[2022-09-18] MEDS: CHOLECALCIFEROL 5,000 UNITS 125 MCG TAB PO SCH (08:05)
[2022-09-18] MEDS: ASPIRIN 325 MG ECTAB PO SCH (08:06)
[2022-09-18] MEDS: OMEGA-3 (PURIFIED FISH OIL) 1 GM CAP PO SCH (08:06)
[2022-09-18] MEDS: CALCIUM CARBONATE 1250MG TAB PO SCH (08:06)
[2022-09-18] MEDS: ENOXAPARIN INJ 40 MG/0.4 ML SYR SQ SCH (08:06)
[2022-09-18] MEDS: LANSOPRAZOLE 15 MG SOLTAB PO SCH (08:06)
[2022-09-18] MEDS: guaiFENesin 600 MG TABCR PO PRN (08:06)
[2022-09-18] MEDS: ROSUVASTATIN CALCIUM 10 MG TAB PO SCH (08:06)
[2022-09-18 08:11] LABS: BUN Creatinine Ratio 27.5 (10-20); Calcium 8.9 mg/dl (8.6-10.3); Creatinine Clr Calc Pharmacy 72.7 ml/min; Est GFR (African American) 105.3 ml/min; Est GFR (Non-African American) 90.8 ml/min; Magnesium 1.8 mg/dl (1.7-2.4); Potassium 3.9 mmol/L (3.5-5.1)
[2022-09-18] MEDS ORDERED: IOVERSOL 350 MG 125mL Prefilled Syringe IV ONE (15:40)
--- NOTE | 2022-09-18 16:42 | Discharge Summary ---
Date of Service September 18, 2022 Admission HPI Per Admitting Provider Zee is an 82-year-old woman with a past medical history of paroxysmal SVT, GERD, dyslipidemia, interstitial lung disease, polymyalgia rheumatica, who presented to the emergency room today with RLE swelling and redness. Ulcer is known to her, and she follows with the wound clinic. She had been prescribed Augmentin on Wednesday for the ulcer but her home health nurse told her on Wednesday that the swelling had actually continued to worsen despite the antibiotics. She came in today as she was concerned about the erythema, and is complaining of some discomfort. In the ED, labs are notable for WBC-15.51. Lactate was 1.0. Other than slight hyponatremia (133), metabolic panel was mostly wnl. She received IV ceftriaxone 1 g, IV vancomycin 1250 mg, 1 L NS bolus, and maintenance NS x1 L. Hospitalist was then consulted for admission. On admission, she as well as daughter, Yvette, who is present at bedside, corroborates HPI. She currently denies pain, as well as fever, chills, drainage, or foul odor. Admission Exam Per Admitting Provider General: No acute distress HEENT: PERRLA. Normal conjunctiva, anicteric sclera. Oropharynx normal. Respiratory: Normal respiratory effort, mild bibasilar crackles heard on auscultation. Cardiovascular: RRR without murmurs, gallops, or rubs. No pedal edema. GI: Soft, nondistended abdomen. Nontender x4 quadrants Skin: On lateral right LE, 4 ulcers at various stages of healing. Of those, 2 open ulcers with central granulation tissue present. No purulence or fluctuance noted. Neuro: Alert and oriented x3. Principal Diagnosis LE Cellulitis Discharge Exam Constitutional cooperative and comfortable; no acute distress Eyes + anicteric sclerae ENMT Ears: no external ear abnormality Nose: no external nose abnormality Moist mucous membranes Respiratory No accessory muscle use or obvious increased work of breathing. Scattered crackles. Cardiovascular Rate/Rhythm: regular rate and regular rhythm +1 lower extremity edema bilaterally Skin Bandaged wounds at right lower extremity, no streaking or erythema beyond borders. Psychiatric Orientation: alert and oriented x 3 Discharge Data Allergies Allergy/AdvReac Type Severity Reaction Status Date / Time No Known Drug Allergies Allergy Verified 09/09/22 15:05 Consultations 09/14/22 10:58 Consult Hematology Routine 09/15/22 07:31 Consult Palliative Care Routine Ordered Studies 09/11/22 17:50 US venous doppler LE BI Stat 09/18/22 15:34 CT angio chest PE protocol Stat Chest X-Ray 09/11/22 14:33 XR chest 1V portable HISTORY: 82 years-old Female Dyspnea acute shortness of breath COMPARISON: 08/28/2022, chest CT 04/30/2022 TECHNIQUE: AP view of the chest FINDINGS: Cardiac silhouette is enlarged. Pulmonary vascular congestion suggested on a background of chronic interstitial lung disease. No pneumothorax, pleural effusion or lobar airspace consolidation. Unchanged right hemidiaphragmatic elevation. Pericardial calcifications Bones appear grossly intact. IMPRESSION: 1. Cardiomegaly with pulmonary vascular congestion. 2. Chronic interstitial lung disease. 3. Chronic pericardial calcifications. ACT 112: Negative or not required by law. The above report was generated using voice recognition software. It may contain grammatical, syntax or spelling errors. Electronically signed by: Jan Beavers M.D. 09/11/2022 3:13 PM Venous Doppler Study 09/11/22 17:50 BILATERAL LOWER EXTREMITY VENOUS DOPPLER HISTORY: Acute pain and swelling of the right lower leg DVT COMPARISON STUDY: 08/25/2022 FINDINGS: There is normal compressibility, flow, and augmentation within the bilateral lower extremity deep venous systems. Subcutaneous edema. IMPRESSION: No DVT within the right or left lower extremity. ACT 112: Negative or not required by law. Electronically signed by: Jan Beavers M.D. 09/11/2022 6:28 PM Chest X-Ray 09/17/22 17:20 XR chest 2V PA/lateral CLINICAL HISTORY: increased oxygen requirement COMPARISON STUDY: Chest CT April 30, 2022. Chest radiograph September 11, 2022. FINDINGS: Pericardial calcifications are incidentally noted. Cardiomegaly is unchanged. There is no pneumothorax. No pleural effusion is present. Diffuse interstitial thickening is again noted. This is similar to prior exam of September 11, 2022. Linear left upper lung densities are likely related to underlying interstitial lung disease. No superimposed consolidation is identified. IMPRESSION: 1. No significant change in diffuse interstitial thickening consistent with interstitial lung disease. No definite superimposed pneumonia. 2. Stable cardiomegaly. ACT 112: Negative or not required by law. Electronically signed by: Harjinder Chen M.D. 09/18/2022 7:32 AM Chest CTA 09/18/22 15:34 CT angio chest PE protocol CT DOSE: 555.73 mGy.cm HISTORY: 82 years-old Female with increased oxygen req, PE protocol. Acute hypoxia TECHNIQUE: Multiple CTA images of the chest were obtained after the intravenous administration of 92 ml Optiray. Coronal and sagittal MIPS were obtained from the axial data set and were submitted for review. All measurements were obtained according to NASCET criteria. A dose lowering technique was utilized adhering to the principles of ALARA. COMPARISON: 04/30/2022 FINDINGS: CTA: Moderate cardiomegaly with chronic pericardial calcifications. Minimal coronary artery calcifications. Atherosclerosis of the thoracic aorta without aneurysm. Mild dilation of the pulmonary artery, 3.1 cm. No pulmonary emboli identified. CT CHEST: Unchanged 1.5 cm exophytic nodule within the inferior left thyroid. Chronic mediastinal and hilar lymphadenopathy redemonstrated. There is an index prevascular lymph node on image 148 series 4 measuring 2.7 x 1.3 cm, previously 2.5 x 0.9 cm. 2.0 x 1.47 m right paratracheal lymph node image 147, previously 1.7 x 1.5 cm. Additional hilar and subcarinal lymphadenopathy has also progressed. Trace pleural effusions. Chronic interstitial lung disease redemonstrated with reticular interstitial opacities with subpleural cystic changes and mild bibasilar prominent traction bronchiectasis. There is intralobular septal thickening with new/progressed intermixed groundglass densities. Mild mosaic attenuation. Central airways are patent. Small hiatal hernia. No acute process of the imaged upper abdomen. Unremarkable soft tissues. No acute fracture. IMPRESSION: 1. Cardiomegaly with mild pulmonary edema and trace pleural effusions. 2. Chronic interstitial lung disease. Worsening groundglass opacities compared to the prior study may be related to the pulmonary edema versus progressive fibrosis. 3. No pulmonary emboli identified. 4. Chronic mediastinal and hilar lymphadenopathy has also worsened from the prior study. 5. Additional findings as above. ACT 112: Negative or not required by law. The above report was generated using voice recognition software. It may contain grammatical, syntax or spelling errors. Electronically signed by: Jan Beavers M.D. 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 Was admitted for management of cellulitis. Discussion with daughter and palliative on 09/16, patient agreeable to rehab upon discharge RLE cellulitis Patient with extensive history with RLE ulcers and cellulitis. She began outpatient treatment in July. First course of abx 07/30 as there was concern for superimposed infection. Cellulitis improved and then acutely worsened. She was started on 10 days of Keflex on 08/19. She was then seen in the [facility] ED and was admitted for cellulitis. Wound cultures grew pansensitive staph lugdunensis. She was sent home with Keflex to finish the course of abx. Symptoms initially improved and then worsened again. She was restarted on Augmentin around 09/07. Symptoms continued to worsen so she represented to the ED and was admitted for IV abx. Patient does have a PMHx of polymyalgia rheumatica and has been treated with steroids in the past. -Continue doxycycline 100mg BID for 10 day treatment (last day 09/23/22) -Suspect that larger factor to recurrent cellulitis is vasculopathy as described below. 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 Patient with skin biopsy consistent with livedoid vasculopathy. Likely contributing to delayed healing and recurrent cellulitis. Will treat acute cellulitis. Does follow with Rheumatology outpatient, Dr. Gooden, who is managing. Patient was to be seen by hematology to r/o underlying hematologic etiology mid September with Neema. -Suspect that vasculopathy could be contributing factor to prolonged LE wounds, will proceed with outpatient referral to heme and further coordination with rheumatology. Paroxysmal supraventricular tachycardia Chronic. Managed on home regimen of Toprol 25 mg daily. Continue as at home GERD Chronic. Managed on home regimen of lansoprazole 15 mg daily. Continue home regimen Cough variant asthma/interstitial lung disease Chronic. Follows Dr. Yong Thurston of [facility] [place]. Managed with as needed albuterol inhaler, as needed benzonatate, nightly Singulair. On 3L NC at home * Montelukast 10 mg p.o. at bedtime * Albuterol inhaler as needed, benzonatate 200 mg as needed 3 times daily * O2 supplementation via nasal cannula. * Mucinex PRN, incentive spirometry -Has some increased oxygen requirement to 6L, chest x-ray completed on 09/17/22 without new findings. Suspect that symptoms are related to deconditioning and atelectasis. Encouraged incentive spirometer use. -CTA Chest completed on day of discharge for completeness considering oxygen requirement slightly above baseline, no obvious PE or acute abnormality- again noted fibrosis/known interstitial lung disease. Vitamin D deficiency Chronic. Managed at home on vitamin D3 5000 units daily, calcium carbonate 600 mg daily. Continue home regimen Dyslipidemia Chronic. Managed at home with omega-3 fish oil, rosuvastatin 10 mg. Continue home regimen Varicose veins of lower extremity Chronic. Managed at home on torsemide 10 mg tablet as needed for fluid retention. 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 Was admitted for management of cellulitis. Discussion with daughter and palliative on 09/16, patient agreeable to rehab upon discharge RLE cellulitis Patient with extensive history with RLE ulcers and cellulitis. She began outpatient treatment in July. First course of abx 07/30 as there was concern for superimposed infection. Cellulitis improved and then acutely worsened. She was started on 10 days of Keflex on 08/19. She was then seen in the [facility] ED and was admitted for cellulitis. Wound cultures grew pansensitive staph lugdunensis. She was sent home with Keflex to finish the course of abx. Symptoms initially improved and then worsened again. She was restarted on Augmentin around 09/07. Symptoms continued to worsen so she represented to the ED and was admitted for IV abx. Patient does have a PMHx of polymyalgia rheumatica and has been treated with steroids in the past. -Continue doxycycline 100mg BID for 10 day treatment (last day 09/23/22) -Suspect that larger factor to recurrent cellulitis is vasculopathy as decribed below. 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 Patient with skin biopsy consistent with livedoid vasculopathy. Likely contributing to delayed healing and recurrent cellulitis. Will treat acute cellulitis. Does follow with Rheumatology outpatient, Dr. Gooden, who is managing. Patient was to be seen by hematology to r/o underlying hematologic etiology mid September with Neema. -Suspect that vasculopathy could be contributing factor to prolonged LE wounds, will proceed with outpatient [facility] and further coordination with rheumatology. Paroxysmal supraventricular tachycardia Chronic. Managed on home regimen of Toprol 25 mg daily. Continue as at home GERD Chronic. Managed on home regimen of lansoprazole 15 mg daily. Continue home regimen Cough variant asthma/interstitial lung disease Chronic. Follows Dr. Yong Thurston of [facility] [place]. Managed with as needed albuterol inhaler, as needed benzonatate, nightly Singulair. On 3L NC at home * Montelukast 10 mg p.o. at bedtime * Albuterol inhaler as needed, benzonatate 200 mg as needed 3 times daily * O2 supplementation via nasal cannula. * Mucinex PRN, incentive spirometry -Has some increased oxygen requirement to 6L, chest x-ray completed on 09/17/22 without new findings. Suspect that symptoms are related to deconditioning and atelectasis. Encouraged incentive spirometer use. -CTA Chest completed on day of discharge for completeness considering oxygen requirement slightly above baseline, no obvious PE or acute abnormality- again noted fibrosis/known interstitial lung disease. Vitamin D deficiency Chronic. Managed at home on vitamin D3 5000 units daily, calcium carbonate 600 mg daily. Continue home regimen Dyslipidemia Chronic. Managed at home with omega-3 fish oil, rosuvastatin 10 mg. Continue home regimen Varicose veins of lower extremity Chronic. Managed at home on torsemide 10 mg tablet as needed for fluid retention. Continue home regimen Pending Studies at Discharge: No Stand-Alone Forms: My [facility] Skilled Items Patient informed of condition?: Yes DNR: Yes Discharge Level of Care: Acute rehab Communicable Disease: No Discharge Prognosis: Stable Lines: None Urinary Catheter: No Medications and DC Order Prescriptions: New doxycycline hyclate 100 mg Capsule 100 mg PO BID Qty: 0 0RF melatonin 3 mg Tablet 3 mg PO HS Qty: 0 0RF guaifenesin [Mucinex] 600 mg Tablet Extended Release 12hr 600 mg PO Q12H PRNQty: 0 0RF Continued rosuvastatin [Crestor] 10 mg tablet 10 mg PO DAILY Qty: 90 3RF albuterol sulfate 90 mcg/actuation HFA aerosol inhaler 2 puff INH Q4H PRN (Reason: shortness of breath or wheezing) Qty: 18 5RF conjugated estrogens 0.3 mg tablet 0.3 mg PO DAILY Qty: 160 0RF Rx Instructions: Take 1 tablet HS days 1 to 28 of every month metoprolol succinate 25 mg tablet extended release 24 hr 25 mg PO DAILY Qty: 90 3RF magnesium chloride 64 mg tablet,delayed release (DR/EC) 64 mg PO DAILY cannabidiol 100 mg/mL solution 0 mg PO HS Rx Instructions: as directed (DME) Oxygen Home Liters Per Minute See Rx Instructions .ROUTE .MEDSUPPLY Qty: 1 0RF Rx Instructions: Oxygen conserving device or POC - 3 L/min via nasal cannula with physical activity and at night, DME aero care torsemide 10 mg tablet 10 mg PO DAILY PRN (Reason: Fluid Retention) calcium carbonate 600 mg calcium (1,500 mg) tablet 600 mg PO DAILY cholecalciferol (vitamin D3) 5,000 unit tablet 5,000 units PO DAILY lansoprazole 15 mg capsule,delayed release(DR/EC) 15 mg PO DAILY multivitamin tablet 1 tab PO DAILY benzonatate 200 mg capsule 200 mg PO TID PRN (Reason: cough) aspirin 325 mg Tablet 325 mg PO DAILY escitalopram oxalate 10 mg tablet 10 mg PO DAILY Rx Instructions: 10 mg orally 1/2 pill dony for 8 days then 1 pill a day; montelukast 10 mg tablet 10 mg PO HS potassium citrate 99 mg Capsule 99 mg PO Q OTHER DAY omega [id number]-fish oil [Fish Oil] 1,000 mg (120 mg-180 mg) Capsule 1 cap PO DAILY Discontinued amoxicillin-pot clavulanate 875-125 mg tablet 1 tab PO BID Qty: 14 0RF Discharge Orders: Discharge Order (Routine); Ordered 09/18/22 Ordered By: Marquita Bauer Admission Data Admit Date/Time: 09/11/22 19:22 Attending Provider: Sivakumar Multani Admit Provider: Fanny Benjamin Primary Care Provider: Ida Jon Other Providers: [facility] ; Corky Chacko ; [facility] ; Rola Lees Other Interventions: Discharge Summary Assessment (RN) Last Done: 09/18/22 16:59 Supervising Physician Co-Signing Physician Notes I personally examined the patient and verified all arvizu points of history and exam, discussed case, and agree with decision making with Dr Bauer Has still had a little bit of an increased oxygen requirement, on questioning, she mostly notes at first a low pulse ox, but on repeated directed questioning may be admits to a little bit of shortness of breath. No cough no fevers chills sweats no chest pain or pressure. I asked her to use her incentive spirometer and she does very poorly. Vitals noted, in general she is awake and alert pleasant no distress, she is on 6 L nasal cannula has an oxy mask on top of that, but the oxy mask is not actually hooked up to any oxygen. Lungs show good air entry throughout but dry fibrotic type Rales predominantly at the bases and a bit in the left middle/upper lung. No conversational dyspnea no cough no accessory muscle use. Neuro shows no focal deficits. leg ulcersappears to have more of a reticular pattern (more arteriolar than venous) appreciate hematology input, may need assistance from dermatology as well - Working on coordinating outpatient hematology follow-up. Finish out a course of Doxy. Infection was really not of much significance, I suspect it was "refractory" outpatient treatment largely because the ulcerations will take a while to heal. Predominantly will benefit from local wound care more than systemic antibiotics, but given that they were a bit exudative on her right leg, reasonable to finish out a course of doxycycline. Pulmonary fibrosis, slight escalation in oxygen requirementsuspect atelectasis since she has been an active in the hospital, At the same time, chest CT shows a degree of progressive fibrosis versus a mild degree of pulmonary edemaafter extensive review, I suspect it is probably a mixed picturesome of which is probably atelectasis/deconditioning, she might have a small degree of pulmonary edema (I informed the physician at rehab who felt comfortable assuming her care in her current situation), and some may have been titrating her oxygen to pulse ox is higher than would be goal for somebody with oxygen dependent chronic lung disease, thereby creating the illusion of an escalated oxygen requirement. Anticipate with time, therapy, incentive spirometry, and movementshe will likely improve, and also she might need a little bit extra diuretics, but certainly nothing that should impair goals of getting her rehab, given that deconditioning and weakness are certainly contributing as well, and a more prolonged hospital stay will only worsen that aspect of her wellbeing. otherwise as above Resident Activity Tracking Resident Involvement: Resident Care Provided Care Provided: Adult Hospital Medicine
--- NOTE | 2022-09-18 17:30 | Billing Data ---
Date of Service September 18, 2022 Coding Level of Care Code 50714 IN/OBS DISCH 30 MIN/LESS
--- NOTE | 2022-09-21 07:20 | Coding Query ---
To promote full compliance with coding requirements relating to patient care, provider participation is requested in all cases of log operations coordinator uncertainty. Please assist us with the question(s) below: Coding Question(s): The diagnosis(es) below was documented in the (09/12 and 09/13 progress note) then subsequently fell off all further documentation. Please indicate if it is still a possible diagnosis or ruled out. Physician's Response(s): ?acute/chronic diastolic CHF ( ) Diagnosed and POA x( x ) Diagnosed and not POA (chronic POA, acute not POA) ( ) Ruled out ( ) Other (please specify) MTDD
== END 2022-09-18 17:00 | disposition alcohol treatment (31) | DRG 602 ==
LOC: ED 14:02 → 2N 19:22 → SUATTDRO 19:22 → 2N 20:17